=== PATIENT | male | born 1940 | race Caucasian/White ===

== ENCOUNTER → 2016-09-03 | Outpatient (CLI) | payer MEDICARE, OTHER ==
--- NOTE | 2016-09-03 18:40 | RESP ---
DATE OF SERVICE: 09/03/2016 The patient's FVC was 2.57, which is 55% predicted; FEV1 2.36, which is 70% predicted; the FEV1/FVC ratio was normal. There was no response to bronchodilators. Lung volumes were not performed. IMPRESSION: 1. No definite obstructive airway disease seen. 2. Cannot exclude restriction. Flow volume loop suggestive of mild restriction. We will need lung volumes to confirm restrictive lung disease. ERIKA CANALES MD DR: SUKHDEEP/pavithra JOB#: [id number] / [id number] Adilene Layne MD MTDD
== END | disposition home or self-care (01) ==
LOC: PF 08:47
PROVIDERS: ATTEND Family Medicine
DX: R06.09 Other forms of dyspnea (principal)
CPT/HCPCS: 94060

== ENCOUNTER → 2016-09-20 | Outpatient (CLI) | payer MEDICARE, OTHER ==
--- NOTE | 2016-09-20 10:57 | KCIC ---
ABDOMINAL ULTRASOUND, 09/20/2016: History: Elevated liver function tests The gallbladder is within normal limits in size. There is no sonographic evidence of cholelithiasis. The gallbladder collins are not thickened. No bile duct dilatation is seen. The liver is at the upper limits of normal in size measuring 18.6 centimeters in length at the level of the right lobe. No hepatic mass is seen. The pancreatic body is unremarkable. Other portions of the pancreas were obscured by overlying bowel. The spleen is of normal size. No renal abnormality is detected. The abdominal aorta is of normal caliber. The visualized portions of the inferior vena cava show no abnormality. No free fluid is evident in the abdomen. IMPRESSION: 1. Borderline hepatomegaly. 2. No acute abdominal abnormality is detected. Electronically signed by: Artem Mason MD (Sep 20, 2016 10:55:43)
== END | disposition home or self-care (01) ==
LOC: KCIC US 10:01
PROVIDERS: ATTEND Family Medicine
DX: R79.89 Other specified abnormal findings of blood chemistry (principal); R16.0 Hepatomegaly, not elsewhere classified
CPT/HCPCS: 76700

== ENCOUNTER → 2017-01-14 | Outpatient (CLI) | payer MEDICARE, OTHER ==
--- NOTE | 2017-01-14 13:53 | KCIC ---
CHEST, TWO VIEWS, 01/14/2017: History: Shortness of breath, productive cough Comparison is made to a study from 10/01/2016. The heart size and pulmonary vascularity are normal. There is mild tortuosity of the thoracic aorta. No pulmonary infiltrate is seen. There is no evidence of pleural fluid. IMPRESSION: No acute cardiopulmonary abnormality is detected with no significant change since 10/01/2016. Electronically signed by: Artem Mason MD (January 14, 2017 13:52:36)
== END | disposition home or self-care (01) ==
LOC: KCIC 13:30
PROVIDERS: ATTEND Family Medicine
DX: R06.02 Shortness of breath (principal); R05 Cough
CPT/HCPCS: 71020

== ENCOUNTER → 2017-02-20 | Outpatient (CLI) | payer OTHER, MEDICARE | END | disposition home or self-care (01) | LOC: PF 10:59 | PROVIDERS: ATTEND Internal Medicine Pulmonary Disease | DX: R06.00 Dyspnea, unspecified (principal) | CPT/HCPCS: 94060; 94620; 94729 ==

== ENCOUNTER → 2017-03-27 | Outpatient (CLI) | payer MEDICARE, OTHER ==
--- NOTE | 2017-03-31 22:07 | SLEEP ---
DATE OF STUDY: 03/27/2017 ATTENDING PHYSICIAN: Dr. Juancarlos Raymundo. REFERRING PHYSICIAN: Dr. Sherice Cruz. The patient is 76 years old who weighs 265 pounds with a BMI of 35. The patient has an [place] score of 14. A split night study was performed at [facility]. During the night study, the patient spent 425 minutes in bed and slept for 324 minutes with a sleep efficiency of 76%. Sleep latency was 14 minutes with a REM latency of 78 minutes. Overall, sleep architecture showed increased stage I sleep, normal stage II sleep, normal slow wave and normal REM sleep. During the initial diagnostic portion of the study, the patient slept for 140 minutes. During this time, there were 27 obstructive apneas, 1 mixed, and no central apneas. There were 18 hypopneas. The patient's apnea hypopnea index was 20 per hour, supine index 23 per hour and a REM index of 29 per hour. EKG monitoring revealed average heart rate of 74 beats per minute. No sustained arrhythmias were observed. Review of nocturnal oximetry study revealed a mean oxygen saturation of 93% with the lowest of 86%. 14% of time oxygen saturation remained between 80% and 89%. PLMS were seen at index of 27 per hour and none caused EEG arousals. The patient met the criteria for CPAP initiation. It was started at 5 cm water and titrated up to 14 cm of water. At the final pressure, the patient had 74 minutes of sleep. The patient had supine as well as REM sleep observed. AHI was reduced to 0 per hour and oxygen saturation remained above 91%. The patient used a medium size full face mask. IMPRESSION: 1. Moderate sleep apnea-hypopnea syndrome with an AHI of 20 per hour. 2. Nocturnal hypoxia secondary to obstructive sleep apnea, but resolved with CPAP. 3. Moderate PLMS without any significant EEG arousals. This does not need to be treated unless the patient has symptoms of restless legs during the day. RECOMMENDATIONS: 1. CPAP at 14 cm water completely eliminated patient's sleep apnea and should be used on a nightly basis. 2. Follow up in 4-6 weeks to assess compliance with CPAP and to document clinical improvement. 3. Weight loss is strongly advised. 4. Avoid [facility] [facility] depressants. 5. Caution regarding driving until symptoms of sleep apnea resolve with the use of CPAP. ERIKA CANALES MD DR: SUKHDEEP/pavithra JOB#: [id number] / [id number] SHERICE Esparza MD [facility]
== END | disposition home or self-care (01) ==
LOC: SLPLAB 18:04
PROVIDERS: ATTEND Internal Medicine Pulmonary Disease
DX: G47.33 Obstructive sleep apnea (adult) (pediatric) (principal)
CPT/HCPCS: 95810

== ENCOUNTER → 2017-07-15 | Outpatient (CLI) | payer MEDICARE, OTHER ==
--- NOTE | 2017-07-15 13:20 | RAD ---
Indication: Indication: Restrictive lung disease. Axial imaging through the chest was performed without contrast. No prior CT chest studies are available for comparison. No axillary lymphadenopathy is detected. No definite hilar or mediastinal lymphadenopathy is detected. Coronary arterial calcifications are present. No pericardial or pleural fluid is seen. Left hemidiaphragm remains chronically elevated. Parenchymal evaluation demonstrate a calcified nodule in the medial right upper lobe consistent with a granuloma. Tiny subpleural calcified nodule right lower lobe is also seen. There is linear parenchymal density in the superior segment left lower lobe consistent with scarring or subsegmental atelectasis. No interlobular septal thickening is seen. No bronchiectasis is seen. Peribronchial interstitial is unremarkable. No air cysts are seen. The upper abdomen is unremarkable. Impression: Prior granulomatous exposure and left basilar subsegmental atelectasis or scarring. The study is otherwise unremarkable. PQRS Compliance Statement: One or more of the following individualized dose reduction techniques were utilized for this examination: 1. Automated exposure control 2. Adjustment of the mA and/or kV according to patient size 3. Use of iterative reconstruction technique
== END | disposition home or self-care (01) ==
LOC: CT 15:04
PROVIDERS: ATTEND Internal Medicine Pulmonary Disease
DX: J98.4 Other disorders of lung (principal)
CPT/HCPCS: 71250

== ENCOUNTER → 2017-08-06 | Outpatient (CLI) | payer MEDICARE, OTHER ==
--- NOTE | 2017-08-06 16:32 | KCIC ---
LUMBAR SPINE MIN 4V Clinical Indication: Lumbar radiculopathy. Chronic low back pain. Comparison: None. Findings: AP, bilateral oblique, lateral, and coned lumbosacral lateral views. There is degenerative arthropathy of the right hip, incompletely imaged. Sacroiliac joints are symmetric. Atherosclerotic abdominal aorta. 5 lumbar type vertebral bodies. Mild grade 1 anterolisthesis of L4 on L5 and minimal grade 1 anterolisthesis of L3 on L4. Alignment is otherwise maintained. No pars defect is identified on the oblique views. Mild disc space narrowing of L5/S1. IMPRESSION: 1. Mild spondylolisthesis. 2. Mild disc space narrowing of L5/S1. 3. No compression fracture. Electronically signed by: Eric Singleton MD (08/06/2017 4:29 PM) [id number]
== END | disposition home or self-care (01) ==
LOC: KCIC 14:51
PROVIDERS: ATTEND Family Medicine
DX: M54.16 Radiculopathy, lumbar region (principal); M43.16 Spondylolisthesis, lumbar region; M48.07 Spinal stenosis, lumbosacral region
CPT/HCPCS: 72110

== ENCOUNTER 2017-08-08 12:14 | Emergency (ER) | payer MEDICARE, OTHER ==
[~2017-08-08] VITALS: Ht 185.4 cm; Wt 127.0 kg
[2017-08-08 12:25] VITALS: BP 147/75
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
== END 2017-08-08 13:28 | disposition home or self-care (01) ==
LOC: ER 12:14
DX: Z04.1 Encounter for examination and observation following transport accident (principal); E11.9 Type 2 diabetes mellitus without complications; K21.9 Gastro-esophageal reflux disease without esophagitis; E78.00 Pure hypercholesterolemia, unspecified; I10 Essential (primary) hypertension; M10.9 Gout, unspecified; G47.30 Sleep apnea, unspecified; V43.52XA Car driver injured in collision with other type car in traffic accident, initial encounter; Y93.I9 Activity, other involving external motion; Y92.410 Unspecified street and highway as the place of occurrence of the external cause; Y99.8 Other external cause status
CPT/HCPCS: 99281

== ENCOUNTER 2018-05-30 10:05 | Outpatient (CLI) | payer MEDICARE, OTHER ==
[2018-05-30] VITALS (14 sets, daily range): BP systolic 114–168; BP diastolic 57–100
[~2018-05-30] VITALS: Ht 185.4 cm; Wt 127.0 kg
[2018-05-30 11:05] LABS: HEMATOCRIT 35.8 % (39.0-53.0); RED BLOOD COUNT 4.64 x10^6/uL (4.30-5.70); RED CELL DISTRIBUTION WIDTH 17.1 % (11.5-14.5)
--- NOTE | 2018-05-30 11:05 | CARD ---
MR#: [id number] Date of Study: 05/30/2018 Ordering Physician: DELL WEST, Referring Physician: DELL WEST Tech: Yoanna Jeff MACI APPROVED REPORT EXAM: Two-dimensional and M-mode echocardiogram with Doppler and color Doppler. Other Information Quality : AverageHR: 80bpm Rhythm : NSR INDICATION Shortness of breath 2D DIMENSIONS RVDd3.2 (2.9-3.5cm)Left Atrium(2D)3.7 (1.6-4.0cm) IVSd1.1 (0.7-1.1cm)Aortic Root(2D)4.2 (2.0-3.7cm) LVDd5.2 (3.9-5.9cm)LVOT Diameter2.2 (1.8-2.4cm) PWd1.0 (0.7-1.1cm)LVDs3.7 (2.5-4.0cm) FS (%) 28.0 %SV69.2 ml LVEF(%)53.9 (>50%) M-Mode DIMENSIONS Left Atrium(MM)4.06 (2.5-4.0cm)Aortic Root4.41 (2.2-3.7cm) Aortic Valve AoV Peak Alonso.171.8cm/sAoV VTI34.4cm AO Peak GR.11.8mmHgLVOT Peak Alonso.81.4cm/s AO Mean GR.6mmHgAVA (VMAX)1.73cm2 MAURICIO (VTI)1.80cm2 Mitral Valve MV E Sbiohzkg89.0cm/sMV E Peak Gr.4mmHg MV DECEL [id number] A Lxjjntya293.7cm/s MV E Mean Gr.2mmHgE/A Ratio0.6 MV A [id number] Pulmonary Valve PV Peak Paxndrdk08.3cm/s LEFT VENTRICLE The left ventricle is normal size. There is normal left ventricular wall thickness. The left ventricu lar systolic function is normal. The Ejection Fraction is 55-60%. There is normal LV segmental wall m otion. Transmitral Doppler flow pattern is Grade I-abnormal relaxation pattern. RIGHT VENTRICLE The right ventricle is normal size. There is normal right ventricular wall thickness. The right ventr icular systolic function is normal. ATRIA The left atrium size is normal. The right atrium size is normal. The interatrial septum is intact wit h no evidence for an atrial septal defect or patent foramen ovale as noted on 2-D or Doppler imaging. AORTIC VALVE The aortic valve is calcified but opens well. The aortic valve is trileaflet. Doppler and Color Flow revealed no significant aortic regurgitation. There is no significant aortic valvular stenosis. MITRAL VALVE The mitral valve is normal in structure and function. There is no evidence of mitral valve prolapse. There is no mitral valve stenosis. Doppler and Color Flow revealed no mitral valve regurgitation note d. TRICUSPID VALVE The tricuspid valve is normal in structure and function. Doppler and Color Flow revealed no tricuspid valve regurgitation noted. There is no tricuspid valve prolapse or vegetation. There is no tricuspid valve stenosis. PULMONIC VALVE The pulmonary valve is normal in structure and function. Doppler and Color Flow revealed trace pulmon ic valvular regurgitation. There is no pulmonic valvular stenosis. GREAT VESSELS The aortic root is mildly enlarged. PERICARDIAL EFFUSION There is no evidence of significant pericardial effusion. Critical Notification Critical Value: No <Conclusion> The left ventricular systolic function is normal. The Ejection Fraction is 55-60%. There is normal LV segmental wall motion. Transmitral Doppler flow pattern is Grade I-abnormal relaxation pattern. No significant valvular stenosis or abnormalities. There is no evidence of significant pericardial effusion. Signed by : Dell West, Electronically Approved : 05/30/2018 11:04:02
[2018-05-30 11:13] LABS: PROTHROMBIN TIME PATIENT 13.7 SEC (11.7-14.0)
[2018-05-30] MEDS ORDERED: IODIXANOL 320 MG/ML 100 ML VIAL. ONE (11:14)
[2018-05-30] MEDS ORDERED: LIDOCAINE 1% PF 2 ML VIAL. ONE (11:14)
[2018-05-30 11:26] LABS: CREATININE 1.1 mg/dL (0.7-1.3); GFR 64.6; POTASSIUM 3.7 mmol/L (3.5-5.1)
[2018-05-30] MEDS ORDERED: NITROGLYCERIN 200 MCG/2 ML SYRINGE FOR CATH/VASC LAB. ONE (11:29)
[2018-05-30] MEDS ORDERED: fentaNYL PF VIAL 100 MCG/2 ML VIAL ONE (11:29)
[2018-05-30] MEDS ORDERED: MIDAZOLAM HCL/PF 5 MG/5 ML VIAL. ONE (11:29)
[2018-05-30] MEDS ORDERED: VERAPAMIL 5 MG/2 ML VIAL. ONE (11:29)
[2018-05-30] MEDS ORDERED: HEPARIN for IV BOLUS 10,000 UNIT/10 ML VIAL. ONE (11:29)
[2018-05-30] MEDS ORDERED: GLUC100018 PO (11:58)
[2018-05-30] MEDS ORDERED: GABA-585 PO (11:58)
[2018-05-30] MEDS ORDERED: TIOT18CA IH (11:58)
[2018-05-30] MEDS ORDERED: FERR325T14 PO (11:58)
[2018-05-30] MEDS ORDERED: CALC-77 PO (11:58)
[2018-05-30] MEDS ORDERED: IPRA0.2S5 NEB (11:58)
[2018-05-30] MEDS ORDERED: ALLO100T PO (11:58)
[2018-05-30] MEDS ORDERED: VITA150T PO (11:58)
[2018-05-30] MEDS ORDERED: AMLO5TAB7 PO (11:58)
[2018-05-30] MEDS ORDERED: FLUT12AE IH (11:58)
[2018-05-30] MEDS ORDERED: HYDR12.58 PO (11:58)
[2018-05-30] MEDS ORDERED: ATOR10TA60 PO (11:58)
[2018-05-30] MEDS ORDERED: UBID100C26 PO (11:58)
[2018-05-30] MEDS ORDERED: LOSA100T7 PO (11:58)
[2018-05-30] MEDS ORDERED: TAMS0.4C2 PO (11:58)
[2018-05-30] MEDS ORDERED: OMEP20CA9 PO (11:58)
[2018-05-30] MEDS ORDERED: MULT-690 PO (11:58)
[2018-05-30] MEDS ORDERED: ASCO10002 PO (11:58)
[2018-05-30] MEDS ORDERED: METF500T16 PO (11:58)
[2018-05-30] MEDS ORDERED: MIDAZOLAM HCL/PF 5 MG/5 ML VIAL. IV ONE (12:00)
[2018-05-30] MEDS ORDERED: NITROGLYCERIN 200 MCG/2 ML SYRINGE FOR CATH/VASC LAB. IART ONE (12:00)
[2018-05-30] MEDS ORDERED: LIDOCAINE 1% PF 2 ML VIAL. INJ ONE (12:00)
[2018-05-30] MEDS ORDERED: IODIXANOL 320 MG/ML 100 ML VIAL. IART ONE (12:00)
[2018-05-30] MEDS ORDERED: VERAPAMIL 5 MG/2 ML VIAL. IART ONE (12:00)
[2018-05-30] MEDS ORDERED: HEPARIN for IV BOLUS 10,000 UNIT/10 ML VIAL. IART ONE (12:00)
[2018-05-30] MEDS ORDERED: fentaNYL PF VIAL 100 MCG/2 ML VIAL IV ONE (12:00)
[2018-05-30] MEDS ORDERED: CONTRAST GIVEN. MC PRN (12:15)
--- NOTE | 2018-05-30 12:44 | PDOC ---
MODERATE SEDATION ASSESSMENT RISKS/ALTERNATIVES Risks/Alternatives Risks and alternatives of this type of sedation and procedure discussed with: RISK/ALTERNATIVES: Patient H & P ON CHART H & P H & P on chart and reviewed for co-morbid conditions and appropriate labs. H&P ON CHART: Yes STATUS PREG STATUS ASSESSED: N/A MEDS/ALLERGIES REVIEWED Meds/Allergies Reviewed Medications and Allergies including time and route of recently administered narcotics and sedatives. MEDS/ALLERGIES REVIEWED: Yes ASA RATING ASA RATING: II AIRWAY ASSESSMENT Airway Assessment Airway patency, oral function limitations, presence of caps, crowns, dentures, partials, and ability to extend neck assessed. AIRWAY ASSESSMENT: Yes MALLAMPATI SCORE MALLAMPATI SCORE: II PRE-SEDATION ASSESSMENT PRE-SEDATION ASSESSMENT: Yes DELL MURILLO MD May 30, 2018 12:44
[2018-05-30] MEDS ORDERED: IV 1/2 NORMAL SALINE 1,000 ML IV SCH (12:45)
[2018-05-30] MEDS ORDERED: NITROGLYCERIN SUBLINGUAL 0.4 MG BOTTLE OF 25. SL PRN (12:45)
--- NOTE | 2018-05-30 13:04 | CARD ---
MR#: [id number] Date of Study: 05/30/2018 Ordering Physician: DELL WEST Referring Physician: DELL WEST Tech: RT Irene (R) APPROVED REPORT Technologist: RT Irene (R) Nurse: Maggie Jones R.N. Procedure(s) performed: Left heart catheterization, selective coronary angiography and left ventricul ography via right transradial approach Moderate sedation: 37 Mins INDICATION The indication(s) include : Unstable angina. PROCEDURE NARRATIVE After explaining the risks, benefits and alternative options, informed consent was obtained from giuliana ent. Patient was brought to the cardiac [employer] and right wrist was prepped and draped in the usual fashion after confirming a positive modified Gordy's test. Arterial access was obtained in the righ t radial artery and a 6 Nauruan sheath was inserted. 6 Nauruan Andre catheter was used to perform ileana ective angiography of the left and right coronary arteries. 6 Nauruan pigtail catheter was used to pe rform left ventriculography. Patient tolerated the procedure well. Hemostasis was achieved using TR band. There were no immediate complications. The following findings were noted. FINDINGS 1. Hemodynamics: Left ventricular end-diastolic pressure of 19 mmHg. No pullback gradient across th e aortic valve. 2. Left ventriculography: Normal left ventricle systolic function with ejection fraction estimated at 60%. No significant mitral regurgitation seen. 3. Coronary angiography: a. The left main coronary artery arose from the left sinus of Valsalva, gave rise to the left anteri or descending and left circumflex arteries and did not show any significant stenosis. b. The left anterior descending artery did not show any significant stenosis. c. The left circumflex artery did not show any significant stenosis. d. The right coronary artery was a large and dominant vessel arising from the right sinus of Valsalv a that did not show any significant stenosis. Conclusion 1. No significant coronary artery disease 2. Normal left ventricle systolic function with ejection fraction estimated at 60%. Recommendations Cardiac Risk Reduction Program Signed by : Dell West, Electronically Approved : 05/30/2018 13:03:28
== END 2018-05-30 15:15 | disposition home or self-care (01) ==
LOC: ECHO 10:05
PROVIDERS: ATTEND Internal Medicine Cardiovascular Disease
DX: I20.0 Unstable angina (principal); Z79.899 Other long term (current) drug therapy; I10 Essential (primary) hypertension; E78.5 Hyperlipidemia, unspecified; E11.9 Type 2 diabetes mellitus without complications; J44.9 Chronic obstructive pulmonary disease, unspecified; M19.90 Unspecified osteoarthritis, unspecified site; G47.33 Obstructive sleep apnea (adult) (pediatric); Z98.890 Other specified postprocedural states; Z82.49 Family history of ischemic heart disease and other diseases of the circulatory system; Z79.84 Long term (current) use of oral hypoglycemic drugs
CPT/HCPCS: 36415; 80048; 85027; 85610; 93306; 93458; 99152; 99153; C1769; C1892; J1644; J2250; J3010; J3490; Q9967

== ENCOUNTER → 2018-12-04 | Outpatient (CLI) | payer MEDICARE, OTHER ==
[2018-05-30 15:00] VITALS: BP 142/67
[~2018-12-04] MED LIST: ALLO100T PO; AMLO5TAB10 PO; ASCO10002 PO; ATOR10TA60 PO; CALC-77 PO; FERR325T14 PO; FLUT12AE IH; GABA-585 PO; GLUC100018 PO; HYDR12.58 PO; IPRA0.2S5 NEB; LOSA100T14 PO; METF500T16 PO; MULT-690 PO; OMEP20CA10 PO; TAMS0.4C2 PO; TIOT18CA IH; UBID100C26 PO; VITA150T PO
--- NOTE | 2018-12-04 17:50 | RAD ---
MR#: [id number] Date of Study: 12/04/2018 Ordering Physician: DELL MURILLO, Referring Physician: DELL MURILLO Tech: Lesly Murguia RDMS, RVT, RTR APPROVED REPORT Patient Location: OUT-PATIENT Indications Bilateral Leg Pain VELOCITY AND DOPPLER WAVEFORM ANALYSIS RIGHT cm/secWaveformSeverity LEFT cm/secWaveform Severity pCFA 101.6pCFA 122.2 Prof Fem Art. 85.9Prof Fem Art. 81.0 Fem Art Prox. 109.1Fem Art Prox. 104.6 Fem Art Mid. 96.7Fem Art Mid. 108.3 Fem Art Dist. 81.0Fem Art Dist. 100.9 Pop Art(AK) 99.1Pop Art(AK) 79.1 HOME HEALTH PROVIDER Prox. 79.5PTA Prox. 42.1 HOME HEALTH PROVIDER Dist. 72.2PTA Dist. 86.8 Per Art Prox. 55.5Per Art Prox. 80.3 TALAT Prox. 81.4ATA Prox. 68.0 DPA 77.4DPA 97.6 Findings Grayscale images of the bilateral lower extremity arterial vessels reveal mild intimal hyperplasia an d mild diffuse atherosclerotic plaque without any focal obstruction. Spectral waveforms and color Doppler in the bilateral common femoral, superficial femoral, popliteal vessels and below-knee vessels demonstrate mostly biphasic and triphasic waveforms. Velocities are gr ossly within normal limits. There is bilateral three-vessel runoff without any significant obstruction noted. Incidental note is made of bilateral De La O cysts on the right measuring approximately 10.3 x 3.6 x 1. 5 cm and on the left measuring 10.4 x 4.7 x 2.2 cm. Critical Notification Critical Value: No <Conclusion> 1. No significant lower extremity arterial disease. 2. Large bilateral De La O cysts. Signed by : Lon Neely, Electronically Approved : 12/04/2018 17:50:33
== END | disposition home or self-care (01) ==
LOC: US 15:04
PROVIDERS: ATTEND Internal Medicine Cardiovascular Disease
DX: M71.21 Synovial cyst of popliteal space [Baker], right knee (principal); M71.22 Synovial cyst of popliteal space [Baker], left knee; M79.661 Pain in right lower leg; M79.662 Pain in left lower leg
CPT/HCPCS: 93925

== ENCOUNTER → 2019-02-17 | Outpatient (CLI) | payer MEDICARE, OTHER ==
[2018-05-30 15:00] VITALS: BP 142/67
--- NOTE | 2019-02-17 17:16 | KCIC ---
Examination: 3 views of the lumbar spine HISTORY: History of chronic back pain COMPARISON: 08/06/2017 FINDINGS: The lumbar vertebral body heights are maintained. Mild intervertebral disc height loss identified throughout the lumbar spine likely degeneration. Moderate facet degenerative changes identified. No significant listhesis identified. IMPRESSION: 1. Moderate degenerative changes lumbar spine. No significant listhesis. Electronically signed by: Dwaine Fortune MD (02/17/2019 5:14 PM) [id number]
== END | disposition home or self-care (01) ==
LOC: KCIC 15:39
PROVIDERS: ATTEND Neurological Surgery
DX: M47.816 Spondylosis without myelopathy or radiculopathy, lumbar region (principal)
CPT/HCPCS: 72100

== ENCOUNTER → 2019-02-19 | Outpatient (CLI) | payer MEDICARE, OTHER ==
[2018-05-30 15:00] VITALS: BP 142/67
[~2019-02-19] MED LIST changes: +IOHEXOL 180 MG/ML 10 ML VIAL. ONE; +methylPREDNISolone ACETATE 40 MG/ML VIAL. ONE; +methylPREDNISolone ACETATE 80 MG/ML VIAL. ONE
--- NOTE | 2019-02-19 12:56 | PAIN ---
DATE OF SERVICE: 02/19/2019 DIAGNOSES: Lumbar radiculopathy with lumbar spinal stenosis, lumbar degenerative disk. The patient is an 78-year-old male who returns for followup status post lumbar epidural steroid injection x 1. The patient reports he got 60% improvement for the first week or so with the pain returning now in the low back and bilateral lower extremities, posterior gluteus, posterior thighs, lateral thighs, anterior thighs, which gets worse with walking, standing, changing positions. It is a shooting pain that is tingling and burning, described it as stabbing, on and off in intensity, worse with walking and standing, better with sitting or lying down, does not awaken him from sleep at night. The patient has obtained a lumbar support brace, which he has been wearing when he is up and around, has it with him today. He reports it has been helpful. The patient reports his pain is an 8 on a scale of 10 at its worst in the past week, 8 on average, 2 at its least and it is an 8 today. The patient reports no new changes. No new bowel or bladder incontinence or other complaints. PHYSICAL EXAMINATION: VITAL SIGNS: The patient's blood pressure 140/78, pulse 109, respirations 18, temperature 98.1 degrees Fahrenheit. Height is 6 feet 1 inch. GENERAL: The patient is awake, alert, oriented, appropriate, very pleasant demeanor. The patient is accompanied by his spouse. HEENT: Shows normocephalic, atraumatic. Extraocular movements are intact and symmetrical. Oral cavity, mucous membranes are moist and pink. Dentition is intact. NECK: Shows anterior throat supple without palpable lymphadenopathy noted. Swallow reflex symmetrical. CHEST: Shows normal with inspection. Breath sounds are clear to auscultation bilaterally. HEART: Shows S1, S2. No murmurs auscultated. ABDOMEN: Obese, soft, nontender, nondistended. BACK: Shows spine grossly in the midline. Lumbar paraspinous muscle shows symmetrical on inspection, on palpation has some moderate tenderness diffusely bilaterally, but only diffusely without significant radiation. The patient has good rotational motion of the lumbar spine laterally as well as extension and flexion without difficulty. EXTREMITIES: Lower extremities show deep tendon reflexes 1+ in the patellar and tendo-calcaneus tendons are equal. Motor exam is 4 on a scale of 5, but symmetrical with dorsiflexion, extension, quadriceps and hamstring flexion. Peripheral pulses are 1+ posterior tibial. No peripheral edema is noted. Options were discussed with the patient. The patient's old chart was reviewed as his current medication regimen updated. Current review of systems updated today as well. We will proceed with a second in the series of lumbar epidural steroid injections today with fluoroscopic guidance. Risks were again discussed including, but not limited to bleeding, infection, possibility of epidural hematoma, subsequent neurological compromise, dural puncture headache, spinal cord and/or nerve damage, side effects of steroid medication and poor results regarding pain control. The patient understands and wished to proceed. The patient will return to the clinic in approximately 2 weeks for followup, was counseled on return appointment, activity level and side effects to be aware of. DIAGNOSES: Lumbar radiculopathy with lumbar spinal stenosis, lumbar degenerative disk disease. PROCEDURE: Lumbar epidural steroid injection, translaminar approach at L4-L5 level using C-arm fluoroscopic guidance under sterile prep and drape using local anesthetic. MEDICATION INJECTED: A total of 120 mg Depo-Medrol plus 10 mL of preservative-free normal saline and 2 mL of Isovue for contrast. CONDITION AT DISCHARGE: Stable. The patient tolerated the procedure well, had no complications. EAN JEWELL MD DR: VASYL/pavithra JOB#: [id number] / [id number]
== END ==
LOC: PNCL 09:35
PROVIDERS: ATTEND Anesthesiology
DX: M51.16 Intervertebral disc disorders with radiculopathy, lumbar region (principal); M48.061 Spinal stenosis, lumbar region without neurogenic claudication
CPT/HCPCS: 62323; J1030; J1040; Q9965

== ENCOUNTER → 2019-03-18 | Outpatient (CLI) | payer MEDICARE, OTHER ==
[2018-05-30 15:00] VITALS: BP 142/67
--- NOTE | 2019-03-18 22:50 | PAIN ---
DATE OF SERVICE: 03/18/2019 PROGRESS NOTE FOR PAIN CLINIC DIAGNOSES: Lumbar radiculopathy with lumbar spinal stenosis and lumbar degenerative disk disease. HISTORY OF PRESENT ILLNESS: The patient is an 78-year-old male who returns for followup status post lumbar epidural steroid injection x 2. The patient reports about 70% improvement after the last injection. The pain is returning now over the past few days, only in the low back and the bilateral lower extremities, mostly in the anterolateral thighs and medial thighs, worse with walking, standing or change in vision. The patient has been going to the gym to workout, although this is becoming more difficult with the pain in his back and feels that he is not strong enough to work out completely and is talking about wishing for some physical therapy. We discussed that with he and his spouse, we will make those arrangements. The patient reports he is doing better at night. He is sleeping through the night, does not bother him when he is lying down. Sitting is better than standing, but again, he has been increasing his distance walking and doing activities at home as well as recreational activities and traveling with better ease and comfort. The patient reports pain is essentially a 9 on a scale of 10 at all times, reports it is tingling, burning, stabbing and tight in the low back and leg itself. No new motor or sensory deficits reported. No new bowel or bladder incontinence. PHYSICAL EXAMINATION: VITAL SIGNS: The patient's blood pressure 152/86, pulse 93, respirations 18, temperature is 97.8 degrees Fahrenheit, 6 feet 1 inch and weight is 299 pounds. GENERAL: The patient is awake, alert, oriented, appropriate, very pleasant demeanor. HEENT: Head shows normocephalic, atraumatic. Extraocular movements are intact and symmetrical. Oral cavity: Mucous membranes moist and pink. Dentition is intact. NECK: Shows anterior throat supple without palpable lymphadenopathy noted. Swallow reflex symmetrical. CHEST: Shows normal on inspection. Breath sounds clear to auscultation bilaterally. HEART: Shows S1, S2 clear. No murmurs are auscultated. ABDOMEN: Soft, obese, nontender and nondistended. BACK: Shows spine grossly in the midline, slightly exaggerated thoracic kyphosis, mild flattening of lumbar lordotic curvature. Lumbar paraspinous muscle shows symmetrical on inspection. On palpation, he has some moderate tenderness diffusely bilaterally, but only diffusely without radiation. The patient has good rotational motion of the lumbar spine, both laterally as well as extension and flexion. EXTREMITIES: Lower extremities show deep tendon reflexes 1+ in the patellar and tendo-calcaneus tendons. Motor exam is a 4 on a scale of 5, but equal and symmetrical dorsiflexion, extension, quadriceps and hamstring flexion. Peripheral pulses are 1+ posterior tibial. No peripheral edema is noted bilaterally. Options were discussed with the patient. The patient's old chart was reviewed as his current medication regimen updated. Current review of systems updated today as well. We will proceed with a lumbar epidural steroid injection today, is the third in this series, with fluoroscopic guidance. Risks were discussed again including, but not limited to bleeding, infection, possibility of epidural hematoma, subsequent neurological compromise, dural puncture, headaches, spinal cord and/or nerve damage, side effects of steroid medication and poor results regarding pain control. The patient understands and wished to proceed. The patient will return to clinic in approximately 2 weeks for followup. He was counseled as to return appointment, activity level and side effects to be aware of. DIAGNOSES: Lumbar radiculopathy with lumbar degenerative disk disease and lumbar spinal stenosis. PROCEDURE: Lumbar epidural steroid injection, translaminar approach at L4-5 level using the C-arm fluoroscopic guidance under sterile prep and drape using local anesthetic. MEDICATION INJECTED: A total of 120 mg Depo-Medrol plus 10 mL of preservative-free normal saline and 2 mL of contrast. CONDITION AT DISCHARGE: Stable. The patient tolerated the procedure well, had no complications. EAN JEWELL MD DR: VASYL/pavithra JOB#: [id number] / [id number]
== END ==
LOC: PNCL 10:37
PROVIDERS: ATTEND Anesthesiology
DX: M51.16 Intervertebral disc disorders with radiculopathy, lumbar region (principal); M48.061 Spinal stenosis, lumbar region without neurogenic claudication
CPT/HCPCS: 62323; J1030; J1040; Q9965

== ENCOUNTER → 2019-04-22 | Outpatient (CLI) | payer MEDICARE, OTHER ==
[2018-05-30 15:00] VITALS: BP 142/67
[~2019-04-22] MED LIST changes: -IOHEXOL 180 MG/ML 10 ML VIAL. ONE; -methylPREDNISolone ACETATE 40 MG/ML VIAL. ONE; -methylPREDNISolone ACETATE 80 MG/ML VIAL. ONE
--- NOTE | 2019-04-22 13:20 | KCIC ---
EXAM: Abdomen sonogram. HISTORY: Abnormal liver function laboratory values. TECHNIQUE: Sonographic imaging of the abdomen was performed. COMPARISON: None. FINDINGS: The liver is enlarged. There is hepatic steatosis. No focal hepatic lesion is seen. The common bile duct is normal in caliber. The gallbladder is unremarkable. The right kidney, pancreas and inferior vena cava are not well seen body habitus. IMPRESSION: 1. Hepatomegaly and hepatic steatosis. 2. Limited evaluation due to body habitus. Electronically signed by: Romelia Mckee MD (04/22/2019 1:17 PM) [id number]
== END | disposition home or self-care (01) ==
LOC: EDSEX → KCIC US 09:44
PROVIDERS: ATTEND Family Medicine
DX: K76.0 Fatty (change of) liver, not elsewhere classified (principal)
CPT/HCPCS: 76705

== ENCOUNTER → 2019-05-19 | Outpatient (CLI) | payer MEDICARE, OTHER ==
[2018-05-30 15:00] VITALS: BP 142/67
--- NOTE | 2019-05-19 10:13 | CARD ---
MR#: [id number] Date of Study: 05/19/2019 Ordering Physician: DELL MURILLO, Referring Physician: DELL MURILLO Tech: Yuki Nichole RDCS APPROVED REPORT EXAM: Two-dimensional and M-mode echocardiogram with Doppler and color Doppler. Other Information Quality : Fair INDICATION Hypertension/HCVD 2D DIMENSIONS RVDd2.2 (2.9-3.5cm)Left Atrium(2D)4.8 (1.6-4.0cm) IVSd1.0 (0.7-1.1cm)Aortic Root(2D)2.8 (2.0-3.7cm) LVDd4.4 (3.9-5.9cm)LVOT Diameter2.2 (1.8-2.4cm) PWd0.9 (0.7-1.1cm)LVDs3.3 (2.5-4.0cm) FS (%) 26.0 %SV45.4 ml LVEF(%)51.3 (>50%) Aortic Valve AoV Peak Alonso.168.1cm/sAoV VTI37.4cm AO Peak GR.11.3mmHgLVOT Peak Alonso.111.0cm/s LVOT VTI 29.01cmAO Mean GR.6mmHg MAURICIO (VMAX)2.88bz8DYS (VTI)3.03cm2 AI P 1/2 Lwhh158uq Mitral Valve MV E Sekmbydx37.3cm/sMV DECEL UFDS195ke MV A Qccmbmru737.6cm/sMV YRL91wu E/A Ratio0.7MVA (PHT)3.50cm2 TDI E/Lateral E'11.5E/Medial E'12.3 Pulmonary Vein S1 Yinifsnf04.3cm/sD2 Emqulayq35.4cm/s LEFT VENTRICLE The left ventricle is normal size. There is normal left ventricular wall thickness. Left ventricle sy stolic function is low normal. The Ejection Fraction is 50-55%. There is normal LV segmental wall mot ion. Septal motion suggestive of conduction defect. Transmitral Doppler flow pattern is Grade I-abnor mal relaxation pattern. RIGHT VENTRICLE The right ventricle is normal size. The right ventricular systolic function is normal. ATRIA The left atrium is mildly dilated. The right atrium size is normal. The interatrial septum is intact with no evidence for an atrial septal defect or patent foramen ovale as noted on 2-D or Doppler imagi ng. AORTIC VALVE The aortic valve is not well visualized but appears calcified. Doppler and Color Flow revealed trace aortic regurgitation. There is no significant aortic valvular stenosis. MITRAL VALVE The mitral valve is calcified but opens well. There is no evidence of mitral valve prolapse. There is no mitral valve stenosis. Doppler and Color Flow revealed no mitral valve regurgitation noted. TRICUSPID VALVE The tricuspid valve is normal in structure and function. Doppler and Color Flow revealed no tricuspid valve regurgitation noted. There is no tricuspid valve stenosis. PULMONIC VALVE The pulmonic valve is not well visualized. Doppler and Color Flow revealed no pulmonic valvular regur gitation. There is no pulmonic valvular stenosis. GREAT VESSELS The aortic root is normal in size. The ascending aorta is moderately dilated at 3.9 cm. The IVC is no rmal in size and collapses >50% with inspiration. PERICARDIAL EFFUSION There is no evidence of significant pericardial effusion. Critical Notification Critical Value: No <Conclusion> Left ventricle systolic function is low normal. The Ejection Fraction is 50-55%. There is normal LV segmental wall motion. Septal motion suggestive of conduction defect. The ascending aorta is moderately dilated at 3.9 cm. Signed by : Lon Neely, Electronically Approved : 05/19/2019 10:13:00
== END | disposition home or self-care (01) ==
LOC: EDSEX → ECHO 08:28 → EDSEX 09:00
PROVIDERS: ATTEND Internal Medicine Cardiovascular Disease
DX: I34.8 Other nonrheumatic mitral valve disorders (principal); I11.9 Hypertensive heart disease without heart failure
CPT/HCPCS: 93306

== ENCOUNTER → 2019-06-30 | Outpatient (CLI) | payer MEDICARE, OTHER ==
--- NOTE | 2019-06-30 13:21 | KCIC ---
EXAM: Chest, 2 views HISTORY: Chronic shortness of breath. COMPARISON: None. FINDINGS: 2 views of the chest are obtained. There is no infiltrate, pleural effusion or pneumothorax. There are slight decreased lung volumes and there is slight elevation of the left hemidiaphragm with left basilar compressive atelectasis. The heart is normal in size. There is a suspected small benign sclerotic lesion within the right humeral head. IMPRESSION: Slight decreased lung volumes and mild elevation of the left hemidiaphragm. No acute pulmonary finding. Electronically signed by: Romelia Mckee MD (06/30/2019 1:18 PM) [place] [id number]
== END | disposition home or self-care (01) ==
LOC: MERGE 11:30 → KCIC 11:30
PROVIDERS: ATTEND Internal Medicine Pulmonary Disease
DX: J98.11 Atelectasis (principal)
CPT/HCPCS: 71046

== ENCOUNTER 2020-02-15 09:34 | Inpatient (IN) | payer MEDICARE, OTHER ==
[~2020-02-15] VITALS: Ht 185.4 cm; Wt 121.1 kg
[~2020-02-15 09:34] MED LIST changes: +BUME1TAB3 PO; +BUME2TAB3 PO; +DOXY100C2 PO; +DULO30CA2 PO; +LOSA-73 PO; -OMEP20CA10 PO; +OMEP20CA16 PO; +POTA10TA6 PO
--- NOTE | 2020-02-15 10:10 | PHYS DOC ---
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 He usually walks with a walker and he is unable to bear a lot of weight on that knee. He states he can bear a small amount but it is very painful. The states that she has been having to get him up and around. Patient is unable to stand up or get up out of the wheelchair on his own even with help from nursing staff. He states is too painful. Patient states he has a sharp pain in the anterior knee only. Rates his pain at 9 out of 10. He has not had any pain medication. Review of Systems: Review of Systems: Musculoskeletal: Denies back pain. Right knee joint pain. [] Heart Score: Risk Factors: Risk Factors: DM, Current or recent (<one month) smoker, HTN, HLP, family history of CAD, obesity. Risk Scores: Score 0 - 3: 2.5% MACE over next 6 weeks - Discharge Home Score 4 - 6: 20.3% MACE over next 6 weeks - Admit for Clinical Observation Score 7 - 10: 72.7% MACE over next 6 weeks - Early Invasive Strategies Allergies: Allergies: Allergies Coded Allergies Type Severity Reaction Last Updated Verified No Known Drug Allergies 08/08/17 No Physical Exam: PE: Constitutional: Well developed, well nourished, no acute distress, non-toxic appearance. [] HENT: Normocephalic, atraumatic, bilateral external ears normal, oropharynx moist, no oral exudates, nose normal. [] Eyes: PERRLA, EOMI, conjunctiva normal, no discharge. [] Neck: Normal range of motion, no tenderness, supple, no stridor. [] Cardiovascular:Heart rate regular rhythm, no murmur [] Lungs & Thorax: Bilateral breath sounds clear to auscultation [] Abdomen: Bowel sounds normal, soft, no tenderness, no masses, no pulsatile masses. [] Skin: Warm, dry, no erythema, no rash. [] Back: No tenderness, no CVA tenderness. [] Extremities: Right anterior knee tenderness, no cyanosis, no clubbing, ROM intact, 3+ edema. [] Neurologic: Alert and oriented X 3, normal motor function, normal sensory function, no focal deficits noted. [] Psychologic: Affect normal, judgement normal, mood normal. [] EKG: EKG: [] Radiology/Procedures: Radiology/Procedures: [] Impression: [facility] [address] [place] [address] IMAGING REPORT Signed PATIENT: BRIAN BRO JACCOUNT: [id number] : 1940 LOCATION: ER AGE: 79 SEX: M EXAM STATUS: REG ER ORD. PHYSICIAN: ESME WESLEY APRN REASON: fall, RT KNEE PAIN PROCEDURE: KNEE RIGHT 3V EXAM: Right knee, 3 views. HISTORY: Pain. Fall. COMPARISON: None. FINDINGS: 3 views the right knee are obtained. There is medial compartment joint space narrowing with subchondral sclerosis and spurring. There is also mild lateral and patellofemoral compartment spurring. There is chondrocalcinosis. There is a small joint effusion. There are small joint loose bodies. IMPRESSION: 1. 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 2. Small joint effusion. Electronically signed by: Romelia Gruber MD (02/15/2020 10:35 AM) [id number] DICTATED and SIGNED BY: ROMELIA GRUBER MD DATE: 02/15/20 1035 Course & Med Decision Making: Course & Med Decision Making Pertinent Labs and Imaging studies reviewed. (See chart for details) Alert and oriented. Skin pink warm and dry. Patient has 3+ edema to the lower extremities bilaterally but looks to be more so due to injury on the right knee and right lower leg. Tenderness to the right anterior knee only. No laxity in the joint. Patient can bend the knee but is very painful and he can straighten the knee of which she states is painful but not as painful as bending it. Popliteal pulse is present. No deformity is seen or felt. Denies numbness or tingling. Denies hitting his head, LOC, chest pain, shortness of air, dizziness, numbness or tingling. Patient is unable to ambulate. Patient is admitted to Dr Phipps. [] Adrian Disclaimer: Adrian Disclaimer: This electronic medical record was generated, in whole or in part, using a voice recognition dictation system. Departure Departure Impression: Primary Impression: Knee pain, right Qualified Codes: M25.561 - Pain in right knee Additional Impression: Unable to ambulate Disposition: ADMITTED INPATIENT Admitting Physician: OMARI Condition: STABLE Referrals: Adilene GANDARA MD (PCP) Justicifation of Admission Dx: Justifications for Admission: Justification of Admission Dx: Yes Comments: unable to ambulate, knee pain ESME WESLEY APPELLATE COURT CLERK Feb 15, 2020 10:10
[2020-02-15] MEDS ORDERED: HYDROcodone/APAP 5/325MG 1 TAB TABLET PO ONE (10:15)
--- NOTE | 2020-02-15 10:38 | RAD ---
EXAM: Right knee, 3 views. HISTORY: Pain. Fall. COMPARISON: None. FINDINGS: 3 views the right knee are obtained. There is medial compartment joint space narrowing with subchondral sclerosis and spurring. There is also mild lateral and patellofemoral compartment spurring. There is chondrocalcinosis. There is a small joint effusion. There are small joint loose bodies. IMPRESSION: 1. 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 2. Small joint effusion. Electronically signed by: Romelia Mckee MD (02/15/2020 10:35 AM) [id number]
--- NOTE | 2020-02-15 11:36 | PDOC1 ---
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 He usually walks with a walker and he is unable to bear a lot of weight on that knee. He states KNEE IS very painful. states that she has been having to get him up and around. unable to stand up or get up out of the wheelchair on his own even with help NOT ABLE TO SAFELY D/C FROM ER TODAY DUE TO FALL RISK Past Medical History Past Medical History Past Medical History Past Medical History: Diabetes-Type II, GERD, High Cholesterol, Hypertension, Other Additional Past Medical Histor: gout; prostate; sleep apnea Past Surgical History: Other Additional Past Surgical Histo: right ankle Smoking Status: Never Smoker Alcohol Use: None Drug Use: None FHX OBESITY Cardiovascular: CHF, HTN, Hyperlipidemia Pulmonary: Other CENTRAL NERVOUS SYSTEM: Periperal neuropathy GI: GERD, Other Heme/Onc: No pertinent hx Hepatobiliary: Other Psych: Depression Musculoskeletal: Osteoarthritis, Weakness, Swelling, Other (RIGHT KNEE PAIN) Rheumatologic: Gout Infectious disease: No pertinent hx ENT: No pertinent hx Renal/: Benign prostatic enlarg. Endocrine: Diabetes Past Surgical History Past Surgical History: Other Family History Family History: Heart Disease Social History Smoke: No ALCOHOL: none Drugs: None Current Medications Current Medications Current Medications Acetaminophen/ Hydrocodone Bitart (Lortab 5/325) 1 tab 1X ONCE PO Last administered on 02/15/20at 10:29; Start 02/15/20 at 10:15; Stop 02/15/20 at 10:25; Status DC Active Scripts Active Cymbalta (Duloxetine Hcl) 30 Mg Capsule.dr 30 Mg PO DAILY 30 Days Bumetanide 1 Mg Tablet 1 Tab PO DAILY PRN May take 1 tab daily as needed if legs are increasingly getting edematouseven with elevation. significant wt gain of at least 2 pounds in 1day with associated shortness of breath, unable to lay flat witout getting short of breath. And call Dr. West's office. Losartan Potassium 50 Mg Tablet 50 Mg PO DAILY 30 Days Reported Klor-Con 10 (Potassium Chloride) 10 Meq Tablet.er 10 Meq PO DAILY Super B Complex (Vitamin B Complex & Vit C No.4) 150 Mg Tablet 150 Mg PO Centrum Silver Men Tablet (Multivit-Min/FA/Lycopen/Lutein) 1 Each Tablet 1 Each PO Calcium + D3 Er Tablet (Calcium Carb & Cit/Vitamin D3) 1 Each Tablet.er 1 Each PO Vitamin C (Ascorbic Acid) 1,000 Mg Tablet 1,000 Mg PO Coq-10 (Ubidecarenone) 100 Mg Capsule 400 Mg PO Glucosamine (Glucosamine Sulfate 2KCL) 1,000 Mg Tablet 1,000 Mg PO Ferrous Sulfate 325 Mg Tablet 1 Tab PO DAILY Spiriva (Tiotropium [place]) 18 Mcg Cap.w.dev 2 Inh IH DAILY Ipratropium [place] 0.2 Mg/1 Ml Solution 1 Vial NEB QID Gabapentin (Gabapentin) 100 Mg Capsule 100 Mg PO TID Omeprazole 20 Mg Capsule.dr 20 Mg PO DAILY Tamsulosin Hcl 0.4 Mg Cap.er.24h 1 Cap PO DAILY Amlodipine Besylate 5 Mg Tablet 5 Mg PO DAILY Atorvastatin Calcium 10 Mg Tablet 10 Mg PO HS Metformin Hcl 500 Mg Tablet 500 Mg PO BIDWMEALS Allopurinol 100 Mg Tablet 1 Tab PO DAILY Hydrochlorothiazide Tablet (Hydrochlorothiazide) 12.5 Mg Tablet 1 Tab PO DAILY Allergies Allergies: Coded Allergies: No Known Drug Allergies (Unverified , 08/08/17) ROS Review of System 14 PT ROS OTHERWISE NEG General: YES: Fatigue; No: Chills, Night Sweats, Malaise, Appetite, Other PSYCHOLOGICAL ROS: No: Anxiety, Behavioral Disorder, Concentration difficultie, Decreased libido, Depression, Disorientation, Hallucinations, Hostility, Irritablity, Memory difficulties, Mood Swings, Obsessive thoughts, Physical abuse, Sexual abuse, Sleep disturbances, Suicidal ideation, Other HEENT: No: Heacaches, Visual Changes, Hearing change, Nasal congestion, Nasal discharge, Oral lesions, Sinus pain, Sore Throat, Epistaxis, Sneezing, Snoring, Tinnitus, Vertigo, Vocal changes, Other ALLERGY AND IMMUNOLOGY: No: Hives, Insect Bite Sensitivity, Itchy/Watery Eyes, Nasal Congestion, Post Nasal Drip, Seasonal Allergies, Other Hematological and Lymphatic: No: Bleeding Problems, Blood Clots, Blood Transfusions, Brusing, Night Sweats, Pallor, Swollen Lymph Nodes, Other ENDOCRINE: No: Breast Changes, Galactorrhea, Hair Pattern Changes, Hot Flashes, Malaise/lethargy, Mood Swings, Palpitations, Polydipsia/polyuria, Skin Changes, Temperature Intolerance, Unexpected Weight Changes, Other Respiratory: No: Cough, Hemoptysis, Orthopnea, Pleuritic Pain, Shortness of breath, SOB with excertion, Sputum Changes, Stridor, Tachypnea, Wheezing, Other Cardiovascular: No Chest Pain, No Palpitations, No Orthopnea, No Paroxysmal Noc. Dyspnea, No Edema, No Lt Headedness, No Other Gastrointestinal: No Nausea, No Vomiting, No Abdominal Pain, No Diarrhea, No Constipation, No Melena, No Hematochezia, No Other Musculoskeletal: Yes Gait Disturbance, Yes Joint Pain, Yes Joint Stiffness, Yes Joint Swelling, Yes Muscular Weakness, Yes Pain In: (R KNEE); No Muscle Pain, No Swelling In:, No Other Neurological: Yes Gait Disturbance, Yes Impaired Coord/balance Skin: No Dry Skin, No Eczema, No Hair Changes, No Lumps, No Mole Changes, No Mottling, No Nail Changes, No Pruritus, No Rash, No Skin Lesion Changes, No Other, No Acne Physical Exam Physical Exam Physical Exam: PE: Constitutional: Well developed, well nourished, MILD acute distress, non-toxic appearance. [] HENT: Normocephalic, atraumatic, bilateral external ears normal, oropharynx moist, no oral exudates, nose normal. [] Eyes: PERRLA, EOMI, conjunctiva normal, no discharge. [] Neck: Normal range of motion, no tenderness, supple, no stridor. [] Cardiovascular:Heart rate regular rhythm, no murmur [] Lungs & Thorax: Bilateral breath sounds clear to auscultation [] Abdomen: Bowel sounds normal, soft, no tenderness, no masses, no pulsatile masses. [] Skin: Warm, dry, no erythema, no rash. [] Back: No tenderness, no CVA tenderness. [] Extremities: Right anterior knee tenderness, no cyanosis, no clubbing, ROM intact, 3+ edema. [] Neurologic: Alert and oriented X 3, normal motor function, normal sensory function, no focal deficits noted. [] Psychologic: Affect normal, judgment normal, mood normal. [] General: Alert, Oriented X3, Cooperative, mild distress HEENT: EOMI Lungs: Clear to auscultation, Normal air movement Heart: RRR Breasts: Not examined Abdomen: Normal bowel sounds, Soft Rectal Exam: not examined PELVIC: Examination not indicated Extremities: No cyanosis Neuro: Normal speech, Cranial nerves 3-12 NL Psych/Mental Status: Mental status NL, Mood NL Vitals Vitals Vital Signs Date Time Temp Pulse Resp B/P (MAP) Pulse Ox O2 Delivery O2 Flow Rate FiO2 02/15/20 10:29 20 94 Room Air 02/15/20 09:50 98.3 100 108/63 (78) 98.3 Images Images EXAM: Right knee, 3 views. HISTORY: Pain. Fall. COMPARISON: None. FINDINGS: 3 views the right knee are obtained. There is medial compartment joint space narrowing with subchondral sclerosis and spurring. There is also mild lateral and patellofemoral compartment spurring. There is chondrocalcinosis. There is a small joint effusion. There are small joint loose bodies. IMPRESSION: 1. 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 2. Small joint effusion. Electronically signed by: Romelia Gruber MD (02/15/2020 10:35 AM) [id number] DICTATED and SIGNED BY: ROMELIA GRUBER MD DATE: 02/15/20 1035 VTE Prophylaxis Ordered VTE Prophylaxis Devices: Contraindicated VTE Pharmacological Prophylaxi: Yes Assessment/Plan Assessment/Plan IMPRESSION: 1. FALL with intractable knee pain, unable to ambulate 2. 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 3. Small joint effusion. 4. morbid obesity 5. GERD 6. COPD 7. HTN 8. HYPERLIPIDEMIA 9. Diabetes plan admit bedrest consult ORTHO PAIN CONTROL DVT PROPHYLAXIS PT/OT HOME MEDS D/W ER dr Hoang of Admission Dx: Justifications for Admission: Justification of Admission Dx: Yes Comments: high fall risk, unable to ambulate GUILLERMO OLIVA MD Feb 15, 2020 11:36
[2020-02-15] MEDS ORDERED: ONDANSETRON PF 4 MG/2 ML VIAL. IV PRN (11:45)
[2020-02-15] MEDS ORDERED: cloNIDine HCL 0.1 MG TABLET PO PRN (11:45)
[2020-02-15] MEDS ORDERED: 0.9 % SODIUM CHLORIDE 10 ML DISP.SYRIN. IV PRN (11:45)
[2020-02-15] MEDS ORDERED: ACETAMINOPHEN 325 MG TABLET. PO PRN (11:45)
[2020-02-15] MEDS ORDERED: LORazepam 0.5 MG TABLET PO PRN (11:45)
[2020-02-15] MEDS ORDERED: guaiFENesin ORAL 200 MG/10 ML LIQUID. PO PRN (11:45)
[2020-02-15] MEDS ORDERED: DOCUSATE SODIUM 100 MG CAPSULE. PO PRN (11:45)
[2020-02-15] MEDS ORDERED: SODIUM PHOSPHATES 19/7GM 133 ML ENEMA. PR PRN (11:45)
[2020-02-15] MEDS ORDERED: MAG HYDROX/ALUMINUM HYD/SIMETH 30 ML ORAL.SUSP PO PRN (11:45)
[2020-02-15] MEDS: IPRATRPIUM/ALBUTEROL 0.5/2.5MG 3 ML NEBU. NEB SCH ×4 (12:00→23:35)
[2020-02-15] MEDS: ENOXAPARIN 40 MG/0.4 ML SYRINGE. SQ SCH (12:11)
--- NOTE | 2020-02-15 13:00 | NUR ---
Admitted from ER by w/c. Took 3 person assist to get pt into the bed from w/c. A/o x's 4. C/o pain when placing weight on right leg. Pitting edema noted +3 feet and ankles. Redness note buttocks with no open areas. IV on left hand s/l. Oriented to room and controls. Side rails up x's 2 with call light in reach. at bedside. Cont. monitor.
[2020-02-15 13:30] VITALS: BP 125/64
[2020-02-15 14:27] VITALS: BP 125/54
[2020-02-15] MEDS ORDERED: BUMETANIDE 1 MG TABLET. PO PRN (16:15)
[2020-02-15] MEDS ORDERED: DEXTROSE 50% 25 GM / 50ML DISP.SYRIN. IV PRN (16:30)
[2020-02-15 16:43] LABS: BASO % 0 % (0-3); EOS # 0.1 x10^3/uL (0.0-0.7); EOS % 1 % (0-3); HEMATOCRIT 39.2 % (39.0-53.0); HEMOGLOBIN 13.4 g/dL (13.0-17.5); LYMPH # 1.3 x10^3/uL (1.0-4.8); LYMPH % 16 % (24-48); MEAN CORPUSCULAR HEMOGLOBIN 29 pg (25-35); MEAN CORPUSCULAR HGB CONC 34 g/dL (31-37); MEAN CORPUSCULAR VOLUME 84 fL (79-100); MONO # 1.1 x10^3/uL (0.0-1.1); MONO % 14 % (0-9); NEUT # 5.5 x10^3/uL (1.8-7.7); NEUT % 69 % (31-73); PLATELET COUNT 281 x10^3/uL (140-400); RED BLOOD COUNT 4.65 x10^6/uL (4.30-5.70); RED CELL DISTRIBUTION WIDTH 14.9 % (11.5-14.5); WHITE BLOOD COUNT 8.1 x10^3/uL (4.0-11.0)
[2020-02-15] MEDS ORDERED: IPRATROPIUM BROMIDE 0.5 MG/2.5 ML NEBU. NEB SCH (17:00)
[2020-02-15] MEDS ORDERED: metFORMIN 500 MG TABLET PO SCH (17:00)
[2020-02-15] MEDS: INSULIN LISPRO 300 UNITS/3 ML VIAL. SQ SCH (17:00)
[2020-02-15] MEDS: metFORMIN 500 MG TABLET PO SCH (17:35)
[2020-02-15 18:08] LABS: ALBUMIN/GLOBULIN RATIO 0.7 (1.0-1.7); CALCIUM 8.6 mg/dL (8.5-10.1); CREATININE 1.6 mg/dL (0.7-1.3); GFR 41.7; POTASSIUM 3.1 mmol/L (3.5-5.1); TOTAL BILIRUBIN 1.2 mg/dL (0.2-1.0); TOTAL PROTEIN 7.6 g/dL (6.4-8.2)
[2020-02-15 19:00] VITALS: BP 131/49
[2020-02-15] MEDS ORDERED: POTASSIUM CHLORIDE 20 MEQ TABLET.ER. PO ONE (19:30)
[2020-02-15] MEDS: ATORVASTATIN CALCIUM 10 MG TABLET. PO SCH (20:26)
[2020-02-15] MEDS: GABAPENTIN 100 MG CAPSULE. PO SCH (20:26)
[2020-02-15 23:00] VITALS: BP 117/49
[2020-02-16] VITALS (7 sets, daily range): BP systolic 99–136; BP diastolic 36–75
[2020-02-16] MEDS: IPRATRPIUM/ALBUTEROL 0.5/2.5MG 3 ML NEBU. NEB SCH ×6 (03:22→23:45)
[2020-02-16] MEDS: PANTOPRAZOLE 40 MG TABLET.DR. PO SCH (06:15)
[2020-02-16 06:20] LABS: CALCIUM 8.7 mg/dL (8.5-10.1); CREATININE 1.4 mg/dL (0.7-1.3); GFR 48.6; MAGNESIUM 1.6 mg/dL (1.8-2.4)
[2020-02-16] MEDS: INSULIN LISPRO 300 UNITS/3 ML VIAL. SQ SCH ×3 (08:00→16:51)
[2020-02-16] MEDS ORDERED: methylPREDNISolone ACETATE 80 MG/ML VIAL. INJ ONE (08:15)
[2020-02-16] MEDS ORDERED: LIDOCAINE 1% PF 30 ML VIAL. INJ ONE (08:15)
[2020-02-16] MEDS: metFORMIN 500 MG TABLET PO SCH (08:18)
[2020-02-16] MEDS: FERROUS SULFATE 325 MG TABLET. PO SCH (08:19)
[2020-02-16] MEDS: TAMSULOSIN 0.4 MG CAP.ER.24H. PO SCH (08:19)
[2020-02-16] MEDS: ASCORBIC ACID 500 MG TABLET PO SCH (08:19)
[2020-02-16] MEDS: POTASSIUM CHLORIDE 10 MEQ TABLET.ER. PO SCH (08:19)
[2020-02-16] MEDS: ALLOPURINOL 100 MG TABLET. PO SCH (08:19)
[2020-02-16] MEDS: DULoxetine HCL 30 MG CAPSULE.DR PO SCH (08:19)
[2020-02-16] MEDS: GABAPENTIN 100 MG CAPSULE. PO SCH ×3 (08:20→21:06)
[2020-02-16] MEDS: amLODIPine BESYLATE 5 MG TABLET PO SCH (08:24)
[2020-02-16] MEDS: LOSARTAN POTASSIUM 50 MG TABLET. PO SCH (08:24)
--- NOTE | 2020-02-16 08:52 | PDOC2 ---
CONSULT Date of Consult Date of Consult DATE: 02/16/20 TIME: 08:50 Reason for Consult Reason for Consult: Right knee pain Referring Physician Referring Physician: Moise Identification/Chief Complaint Chief Complaint Right knee pain Source Source: Chart review, Patient History of Present Illness Reason for Visit: Patient is a pleasant 79-year-old gentleman who had a twisting episode to his right knee a couple days ago while in his bathroom and had the acute onset of pain and difficulty ambulating secondary to pain at his knee. He feels the pain all around his knee, worse with movement and ambulation. He has had some episodes of knee pain in the past, cortisone has helped these from other providers. He denies any swelling in his knee. He denies any radiation of the pain. Past Medical History Cardiovascular: CHF, HTN, Hyperlipidemia Pulmonary: Other CENTRAL NERVOUS SYSTEM: Periperal neuropathy GI: GERD, Other Heme/Onc: No pertinent hx Hepatobiliary: Other Psych: Depression Musculoskeletal: Osteoarthritis, Weakness, Swelling, Other (RIGHT KNEE PAIN) Rheumatologic: Gout Infectious disease: No pertinent hx ENT: No pertinent hx Renal/: Benign prostatic enlarg. Endocrine: Diabetes Past Surgical History Past Surgical History: Other Family History Family History: Heart Disease Social History No ALCOHOL: none Drugs: None Lives: with Family Current Problem List Problem List Problems Medical Problems: (1) Knee pain, right Status: Acute (2) Unable to ambulate Status: Acute Current Medications Current Medications Current Medications Acetaminophen/ Hydrocodone Bitart (Lortab 5/325) 1 tab 1X ONCE PO Last administered on 02/15/20at 10:29; Start 02/15/20 at 10:15; Stop 02/15/20 at 10:25; Status DC Sodium Chloride (Normal Saline Flush) 3 ml QSHIFT PRN IV AFTER MEDS AND BLOOD DRAWS; Start 02/15/20 at 11:45 Ondansetron HCl (Zofran) 4 mg PRN Q4HRS PRN IV NAUSEA/VOMITING; Start 02/15/20 at 11:45 Acetaminophen (Tylenol) 650 mg PRN Q4HRS PRN PO TEMP OVER 100.4F OR MILD PAIN Last administered on 02/15/20at 22:07; Start 02/15/20 at 11:45 Al Hydroxide/Mg Hydroxide (Mylanta Plus Xs) 30 ml PRN DAILY PRN PO HEARTBURN / GAS; Start 02/15/20 at 11:45 Clonidine HCl (Catapres) 0.1 mg PRN Q6HRS PRN PO SBP>160 OR DBP>90; Start 02/15/20 at 11:45 Sodium Monofluorophosphate (Fleet Adult) 133 ml PRN DAILY PRN ND CONSTIPATION; Start 02/15/20 at 11:45 Docusate Sodium (Colace) 100 mg PRN BID PRN PO HARD STOOLS; Start 02/15/20 at 11:45 Albuterol/ Ipratropium (Duoneb) 3 ml Q4H NEB Last administered on 02/16/20at 07:10; Start 02/15/20 at 12:00 Guaifenesin (Robitussin) 200 mg PRN Q4HRS PRN PO COUGH; Start 02/15/20 at 11:45 Lorazepam (Ativan) 0.5 mg PRN Q4HRS PRN PO ANXIETY / AGITATION; Start 02/15/20 at 11:45 Enoxaparin Sodium (Lovenox 40mg Syringe) 40 mg Q24H SQ Last administered on 02/15/20at 12:11; Start 02/15/20 at 11:45 Amlodipine Besylate (Norvasc) 5 mg DAILY PO Last administered on 02/16/20at 08:24; Start 02/16/20 at 09:00 Atorvastatin Calcium (Lipitor) 10 mg HS PO Last administered on 02/15/20at 20:26; Start 02/15/20 at 21:00 Ferrous Sulfate (Feosol) 325 mg DAILYWBKFT PO Last administered on 02/16/20at 08:19; Start 02/16/20 at 09:00 Gabapentin (Neurontin) 100 mg TID PO Last administered on 02/16/20at 08:20; Start 02/15/20 at 21:00 Ipratropium [place] (Atrovent) 0.2 mg QID NEB ; Start 02/15/20 at 17:00; Status UNV Tamsulosin HCl (Flomax) 0.4 mg DAILY PO Last administered on 02/16/20at 08:19; Start 02/16/20 at 09:00 Non-Formulary Medication (Tiotropium [place] (Spiriva)) 2 inh DAILY IH ; Start 02/16/20 at 09:00; Status UNV Metformin HCl (Glucophage) 500 mg BIDWMEALS PO ; Start 02/15/20 at 17:00; Stop 02/15/20 at 17:31; Status DC Hydrochlorothiazide (Microzide) 12.5 mg DAILY PO Last administered on 02/16/20at 08:23; Start 02/16/20 at 09:00 Pantoprazole Sodium (Protonix) 40 mg DAILYAC PO Last administered on 02/16/20at 06:15; Start 02/16/20 at 07:30 Potassium Chloride (Klor-Con) 10 meq DAILYWBKFT PO Last administered on 02/16/20at 08:19; Start 02/16/20 at 08:00 Allopurinol (Zyloprim) 100 mg DAILY PO Last administered on 02/16/20at 08:19; Start 02/16/20 at 09:00 Bumetanide (Bumex) 1 mg DAILY PRN PO SEE COMMENTS; Start 02/15/20 at 16:15 Duloxetine HCl (Cymbalta) 30 mg DAILY PO Last administered on 02/16/20at 08:19; Start 02/16/20 at 09:00 Losartan Potassium (Cozaar) 50 mg DAILY PO Last administered on 02/16/20at 08:24; Start 02/16/20 at 09:00 Ascorbic Acid (Vitamin C) 1,000 mg DAILY PO Last administered on 02/16/20at 08:19; Start 02/16/20 at 09:00 Insulin Human Lispro (HumaLOG) 0-5 UNITS TIDWMEALS SQ ; Start 02/15/20 at 17:00 Dextrose (Dextrose 50%-Water Syringe) 12.5 gm PRN Q15MIN PRN IV SEE COMMENTS; Start 02/15/20 at 16:30 Metformin HCl (Glucophage) 1,000 mg BIDWMEALS PO Last administered on 02/16/20at 08:18; Start 02/15/20 at 17:30 Potassium Chloride (Klor-Con) 40 meq 1X ONCE PO Last administered on 02/15/20at 20:26; Start 02/15/20 at 19:30; Stop 02/15/20 at 19:31; Status DC Lidocaine HCl (Xylocaine 1% Pf 30ml Vial) 30 ml 1X ONCE INJ ; Start 02/16/20 at 08:15; Stop 02/16/20 at 08:16; Status DC Methylprednisolone Acetate (DEPO-Medrol 80MG VIAL) 80 mg 1X ONCE INJ ; Start 02/16/20 at 08:15; Stop 02/16/20 at 08:16; Status DC Active Scripts Active Cymbalta (Duloxetine Hcl) 30 Mg Capsule.dr 30 Mg PO DAILY 30 Days Bumetanide 1 Mg Tablet 1 Tab PO DAILY PRN May take 1 tab daily as needed if legs are increasingly getting edematouseven with elevation. significant wt gain of at least 2 pounds in 1day with associated shortness of breath, unable to lay flat witout getting short of breath. And call Dr. West's office. Losartan Potassium 50 Mg Tablet 50 Mg PO DAILY 30 Days Reported Klor-Con 10 (Potassium Chloride) 10 Meq Tablet.er 10 Meq PO DAILY Super B Complex (Vitamin B Complex & Vit C No.4) 150 Mg Tablet 150 Mg PO Centrum Silver Men Tablet (Multivit-Min/FA/Lycopen/Lutein) 1 Each Tablet 1 Each PO Calcium + D3 Er Tablet (Calcium Carb & Cit/Vitamin D3) 1 Each Tablet.er 1 Each PO Vitamin C (Ascorbic Acid) 1,000 Mg Tablet 1,000 Mg PO Coq-10 (Ubidecarenone) 100 Mg Capsule 400 Mg PO Glucosamine (Glucosamine Sulfate 2KCL) 1,000 Mg Tablet 1,000 Mg PO Ferrous Sulfate 325 Mg Tablet 1 Tab PO DAILY Spiriva (Tiotropium [place]) 18 Mcg Cap.w.dev 2 Inh IH DAILY Ipratropium [place] 0.2 Mg/1 Ml Solution 1 Vial NEB QID Gabapentin (Gabapentin) 100 Mg Capsule 100 Mg PO TID Omeprazole 20 Mg Capsule.dr 20 Mg PO DAILY Tamsulosin Hcl 0.4 Mg Cap.er.24h 1 Cap PO DAILY Amlodipine Besylate 5 Mg Tablet 5 Mg PO DAILY Atorvastatin Calcium 10 Mg Tablet 10 Mg PO HS Metformin Hcl 500 Mg Tablet 500 Mg PO BIDWMEALS Allopurinol 100 Mg Tablet 1 Tab PO DAILY Hydrochlorothiazide Tablet (Hydrochlorothiazide) 12.5 Mg Tablet 1 Tab PO DAILY Allergies Allergies: Coded Allergies: No Known Drug Allergies (Unverified , 08/08/17) ROS General: No: Chills, Night Sweats, Fatigue, Malaise, Appetite, Other PSYCHOLOGICAL ROS: No: Anxiety, Behavioral Disorder, Concentration difficultie, Decreased libido, Depression, Disorientation, Hallucinations, Hostility, Irritablity, Memory difficulties, Mood Swings, Obsessive thoughts, Physical abuse, Sexual abuse, Sleep disturbances, Suicidal ideation, Other Eyes: No Blurry vision, No Decreased vision, No Double vision, No Dry eyes, No Excessive tearing, No Eye Pain, No Itchy Eyes, No Loss of vision, No Photophobia, No Scotomata, No Uses contacts, No Uses glasses, No Other HEENT: No: Heacaches, Visual Changes, Hearing change, Nasal congestion, Nasal discharge, Oral lesions, Sinus pain, Sore Throat, Epistaxis, Sneezing, Snoring, Tinnitus, Vertigo, Vocal changes, Other ALLERGY AND IMMUNOLOGY: No: Hives, Insect Bite Sensitivity, Itchy/Watery Eyes, Nasal Congestion, Post Nasal Drip, Seasonal Allergies, Other Hematological and Lymphatic: No: Bleeding Problems, Blood Clots, Blood Transfusions, Brusing, Night Sweats, Pallor, Swollen Lymph Nodes, Other ENDOCRINE: No: Breast Changes, Galactorrhea, Hair Pattern Changes, Hot Flashes, Malaise/lethargy, Mood Swings, Palpitations, Polydipsia/polyuria, Skin Changes, Temperature Intolerance, Unexpected Weight Changes, Other Respiratory: No: Cough, Hemoptysis, Orthopnea, Pleuritic Pain, Shortness of breath, SOB with excertion, Sputum Changes, Stridor, Tachypnea, Wheezing, Other Cardiovascular: No Chest Pain, No Palpitations, No Orthopnea, No Paroxysmal Noc. Dyspnea, No Edema, No Lt Headedness, No Other Gastrointestinal: No Nausea, No Vomiting, No Abdominal Pain, No Diarrhea, No Constipation, No Melena, No Hematochezia, No Other Genitourinary: No Dysuria, No Frequency, No Incontinence, No Hematuria, No Retention, No Discharge, No Urgency, No Pain, No Flank Pain, No Other, No , No , No , No , No , No , No Musculoskeletal: Yes Joint Pain, Yes Joint Stiffness Neurological: Yes Gait Disturbance; No Behavorial Changes, No Bowel/Bladder ControlChng, No Confusion, No Headaches, No Impaired Coord/balance, No Memory Loss, No Numbness/Tingling, No Seizures, No Speech Problems, No Tremors, No Visual Changes, No Weakness, No Other Skin: No Dry Skin, No Eczema, No Hair Changes, No Lumps, No Mole Changes, No Mottling, No Nail Changes, No Pruritus, No Rash, No Skin Lesion Changes, No Other, No Acne Physical Exam General: Alert, Oriented X3 HEENT: Atraumatic, EOMI, Other (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 He is tender at medial lateral joint lines. Range of motion today is 3 degrees to 80 degrees. Knee is stable to varus and valgus.) Vitals VITALS Vital Signs Date Time Temp Pulse Resp B/P (MAP) Pulse Ox O2 Delivery O2 Flow Rate FiO2 02/16/20 08:24 98 131/77 02/16/20 07:11 93 Room Air 02/16/20 07:05 98.0 18 98.0 Labs Labs Laboratory Tests Test 02/15/20 11:57 02/15/20 16:31 02/15/20 17:10 02/15/20 21:07 White Blood Count 8.1 x10^3/uL (4.0-11.0) Red Blood Count 4.65 x10^6/uL (4.30-5.70) Hemoglobin 13.4 g/dL (13.0-17.5) Hematocrit 39.2 % (39.0-53.0) Mean Corpuscular Volume 84 fL (79-100) Mean Corpuscular Hemoglobin 29 pg (25-35) Mean Corpuscular Hemoglobin Concent 34 g/dL (31-37) Red Cell Distribution Width 14.9 % (11.5-14.5) Platelet Count 281 x10^3/uL (140-400) Neutrophils (%) (Auto) 69 % (31-73) Lymphocytes (%) (Auto) 16 % (24-48) Monocytes (%) (Auto) 14 % (0-9) Eosinophils (%) (Auto) 1 % (0-3) Basophils (%) (Auto) 0 % (0-3) Neutrophils # (Auto) 5.5 x10^3/uL (1.8-7.7) Lymphocytes # (Auto) 1.3 x10^3/uL (1.0-4.8) Monocytes # (Auto) 1.1 x10^3/uL (0.0-1.1) Eosinophils # (Auto) 0.1 x10^3/uL (0.0-0.7) Basophils # (Auto) 0.0 x10^3/uL (0.0-0.2) Glucose (Fingerstick) 146 mg/dL (70-99) 158 mg/dL (70-99) Sodium Level 138 mmol/L (136-145) Potassium Level 3.1 mmol/L (3.5-5.1) Chloride Level 95 mmol/L (98-107) Carbon Dioxide Level 36 mmol/L (21-32) Anion Gap 7 (6-14) Blood Urea Nitrogen 33 mg/dL (8-26) Creatinine 1.6 mg/dL (0.7-1.3) Estimated GFR (Cockcroft-Gault) 41.7 BUN/Creatinine Ratio 21 (6-20) Glucose Level 144 mg/dL (70-99) Calcium Level 8.6 mg/dL (8.5-10.1) Total Bilirubin 1.2 mg/dL (0.2-1.0) Aspartate Amino Transf (AST/SGOT) 43 U/L (15-37) Alanine Aminotransferase (ALT/SGPT) 44 U/L (16-63) Alkaline Phosphatase 218 U/L (46-116) Total Protein 7.6 g/dL (6.4-8.2) Albumin 3.0 g/dL (3.4-5.0) Albumin/Globulin Ratio 0.7 (1.0-1.7) Test 02/16/20 05:50 02/16/20 07:04 Sodium Level 141 mmol/L (136-145) Potassium Level 4.0 mmol/L (3.5-5.1) Chloride Level 101 mmol/L (98-107) Carbon Dioxide Level 32 mmol/L (21-32) Anion Gap 8 (6-14) Blood Urea Nitrogen 25 mg/dL (8-26) Creatinine 1.4 mg/dL (0.7-1.3) Estimated GFR (Cockcroft-Gault) 48.6 Glucose Level 116 mg/dL (70-99) Calcium Level 8.7 mg/dL (8.5-10.1) Magnesium Level 1.6 mg/dL (1.8-2.4) Glucose (Fingerstick) 112 mg/dL (70-99) Laboratory Tests Test 02/15/20 11:57 02/15/20 16:31 02/15/20 17:10 02/15/20 21:07 White Blood Count 8.1 x10^3/uL (4.0-11.0) Red Blood Count 4.65 x10^6/uL (4.30-5.70) Hemoglobin 13.4 g/dL (13.0-17.5) Hematocrit 39.2 % (39.0-53.0) Mean Corpuscular Volume 84 fL (79-100) Mean Corpuscular Hemoglobin 29 pg (25-35) Mean Corpuscular Hemoglobin Concent 34 g/dL (31-37) Red Cell Distribution Width 14.9 % (11.5-14.5) Platelet Count 281 x10^3/uL (140-400) Neutrophils (%) (Auto) 69 % (31-73) Lymphocytes (%) (Auto) 16 % (24-48) Monocytes (%) (Auto) 14 % (0-9) Eosinophils (%) (Auto) 1 % (0-3) Basophils (%) (Auto) 0 % (0-3) Neutrophils # (Auto) 5.5 x10^3/uL (1.8-7.7) Lymphocytes # (Auto) 1.3 x10^3/uL (1.0-4.8) Monocytes # (Auto) 1.1 x10^3/uL (0.0-1.1) Eosinophils # (Auto) 0.1 x10^3/uL (0.0-0.7) Basophils # (Auto) 0.0 x10^3/uL (0.0-0.2) Glucose (Fingerstick) 146 mg/dL (70-99) 158 mg/dL (70-99) Sodium Level 138 mmol/L (136-145) Potassium Level 3.1 mmol/L (3.5-5.1) Chloride Level 95 mmol/L (98-107) Carbon Dioxide Level 36 mmol/L (21-32) Anion Gap 7 (6-14) Blood Urea Nitrogen 33 mg/dL (8-26) Creatinine 1.6 mg/dL (0.7-1.3) Estimated GFR (Cockcroft-Gault) 41.7 BUN/Creatinine Ratio 21 (6-20) Glucose Level 144 mg/dL (70-99) Calcium Level 8.6 mg/dL (8.5-10.1) Total Bilirubin 1.2 mg/dL (0.2-1.0) Aspartate Amino Transf (AST/SGOT) 43 U/L (15-37) Alanine Aminotransferase (ALT/SGPT) 44 U/L (16-63) Alkaline Phosphatase 218 U/L (46-116) Total Protein 7.6 g/dL (6.4-8.2) Albumin 3.0 g/dL (3.4-5.0) Albumin/Globulin Ratio 0.7 (1.0-1.7) Test 02/16/20 05:50 02/16/20 07:04 Sodium Level 141 mmol/L (136-145) Potassium Level 4.0 mmol/L (3.5-5.1) Chloride Level 101 mmol/L (98-107) Carbon Dioxide Level 32 mmol/L (21-32) Anion Gap 8 (6-14) Blood Urea Nitrogen 25 mg/dL (8-26) Creatinine 1.4 mg/dL (0.7-1.3) Estimated GFR (Cockcroft-Gault) 48.6 Glucose Level 116 mg/dL (70-99) Calcium Level 8.7 mg/dL (8.5-10.1) Magnesium Level 1.6 mg/dL (1.8-2.4) Glucose (Fingerstick) 112 mg/dL (70-99) Images Images Nonweightbearing knee x-rays demonstrate advanced degenerative changes tricompartmentally Assessment/Plan Assessment/Plan I did discuss different treatment options with him, we both thought trying a co rtisone injection to help his knee pain I would be reasonable. Therefore, after informed consent and sterile prep over the superolateral right knee, and after confirming appropriate site, I injected 80 mg of Depo-Medrol and local anesthetic without complication. The area was cleansed and dried and a sterile dressing was applied. He tolerated this well. He can weight-bear as tolerated, I would recommend PT and OT. Disposition per primary. He can follow-up with Dr. Booker in 4 to 6 weeks. CEDRICK SEXTON II, MD Feb 16, 2020 08:52
[2020-02-16] MEDS ORDERED: LIDOCAINE 1% PF 5 ML VIAL. ONE (09:00)
[2020-02-16] MEDS ORDERED: NON FORMULARY ITEM (Tiotropium Bromide (Spiriva) 2 INH) IH SCH (09:00)
[2020-02-16] MEDS ORDERED: hydroCHLOROthiazide 12.5 MG CAPSULE PO SCH (09:00)
[2020-02-16] MEDS ORDERED: methylPREDNISolone ACETATE 80 MG/ML VIAL. ONE (09:00)
--- NOTE | 2020-02-16 10:19 | NUR ---
[facility]ON[facility] following. Discussed with RN, pt from home with , room air, ADA diet, pt uses a walker at home. Pt having knee injected today. PT/OT ordered to determine therapy needs at discharge. [facility]ONOR will continue to follow. Addendum: 02/16/20 at 1619 by MANSI GALVEZ PT/OT on hold for knee injections. Dr. Hernandez gave LEONOR a script for an electric wheelchair for pt. [facility] contacted [facility] - they are in network with pt's insurance and will fax a document for therapy to complete for LEONOR to send with script and physician documentation of why pt needs motorized wheelchair. Physician notified. [facility]ONOR will continue to follow.
[2020-02-16] MEDS ORDERED: MAGNESIUM SULFATE 2GM 50 ML IV ONE (11:00)
--- NOTE | 2020-02-16 11:03 | PDOC ---
PROGRESS NOTES Chief Complaint Chief Complaint A/P: Unable to walk - due to severe osteoarthritis. He is not an appropriate candidate for TKR given his CHF CAREY - vasomotor nephropathy - cr improved from 1.6 to 1.4 Hypokalemia - improved Hypomagnesemia - will replace FALL with intractable knee pain, unable to ambulate Mild medial compartment predominant osteoarthritis of the right knee with chondrocalcinosis and suspected joint loose bodies. morbid obesity GERD - ppi COPD - prn albuterol HTN - amlodipine HYPERLIPIDEMIA - statin Diabetes - given age and renal function would recommend d/c of metformin. controlled withprior A1C at 6.3 Syncope with nontraumatic fall: Vasovagal with associated dehydration. 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 Hepatic steatosis History of Present Illness History of Present Illness Mr Gomes is an 79 yo M w/ PMHx DM2, GERD, HLD, HTN, dCHF, gout, sleep apnea who presents with INTRACTABLE RIGHT KNEE PAIN ON Saturday he was sitting on the toilet and was cleaning himself and holding onto the handlebars on the side collins when he lost his balance and his plastic boat patcher and fell onto his right knee. He usually walks with a walker and he is unable to bear a lot of weight on that knee. He states KNEE IS very painful. states that she has been having to get him up and around. Unable to stand up or get up out of the wheelchair on his own even with help NOT ABLE TO SAFELY D/C FROM ER TODAY DUE TO FALL RISK K was 3.1, Cr 1.6, Mg 1.6. He is still in diffuse joint pain, no SOB or CP. Afebrile. Labs improved. Cr 1.4. Discussed possibility of right knee injection with ortho as well as staple removal from his head wound. Also discussed with his above issues and ambulation issues a motorized wheelchair would be appropriate.\ He resides at home with his , which they are currently updating for handicapped accessibility due to the increasing frequency of his falls and severity of his osteoarthritis which is making him nearly non-ambulatory. This is complicated by his CHF which is NYHA III/IV. He is becoming dependent upon his caregivers for 30-40% of his ADLs and MRADLs. His home is fully wheelchair accessible. He cannot safely use a cane or a walker with the frequency of his falls. He is able to self-propel a manual wheelchair very short distances, and is dependent upon other in all areas of transfers, weight shifts, self care, and activities of daily living. A motorized wheelchair will provide him with optimal positioning and safety at home, during transportation, as well as in the community. He will be using the chair for approximately 4-6 hours per day. The chair will be used for positioning at home to allow for increased participation and safety during daily activities. In addition, the chair will be used to attend all necessary medical appointments. Vitals Vitals Vital Signs Date Time Temp Pulse Resp B/P (MAP) Pulse Ox O2 Delivery O2 Flow Rate FiO2 02/16/20 08:24 98 131/77 02/16/20 08:05 Room Air 02/16/20 07:11 93 02/16/20 07:05 98.0 18 98.0 Physical Exam General: Alert, Oriented X3 Heart: Regular rate Lungs: Clear Abdomen: Soft, No tenderness Extremities: No edema, Normal pulses Skin: No rashes Labs LABS Laboratory Tests Test 02/15/20 11:57 02/15/20 16:31 02/15/20 17:10 02/15/20 21:07 White Blood Count 8.1 x10^3/uL (4.0-11.0) Red Blood Count 4.65 x10^6/uL (4.30-5.70) Hemoglobin 13.4 g/dL (13.0-17.5) Hematocrit 39.2 % (39.0-53.0) Mean Corpuscular Volume 84 fL (79-100) Mean Corpuscular Hemoglobin 29 pg (25-35) Mean Corpuscular Hemoglobin Concent 34 g/dL (31-37) Red Cell Distribution Width 14.9 % (11.5-14.5) Platelet Count 281 x10^3/uL (140-400) Neutrophils (%) (Auto) 69 % (31-73) Lymphocytes (%) (Auto) 16 % (24-48) Monocytes (%) (Auto) 14 % (0-9) Eosinophils (%) (Auto) 1 % (0-3) Basophils (%) (Auto) 0 % (0-3) Neutrophils # (Auto) 5.5 x10^3/uL (1.8-7.7) Lymphocytes # (Auto) 1.3 x10^3/uL (1.0-4.8) Monocytes # (Auto) 1.1 x10^3/uL (0.0-1.1) Eosinophils # (Auto) 0.1 x10^3/uL (0.0-0.7) Basophils # (Auto) 0.0 x10^3/uL (0.0-0.2) Glucose (Fingerstick) 146 mg/dL (70-99) 158 mg/dL (70-99) Sodium Level 138 mmol/L (136-145) Potassium Level 3.1 mmol/L (3.5-5.1) Chloride Level 95 mmol/L (98-107) Carbon Dioxide Level 36 mmol/L (21-32) Anion Gap 7 (6-14) Blood Urea Nitrogen 33 mg/dL (8-26) Creatinine 1.6 mg/dL (0.7-1.3) Estimated GFR (Cockcroft-Gault) 41.7 BUN/Creatinine Ratio 21 (6-20) Glucose Level 144 mg/dL (70-99) Calcium Level 8.6 mg/dL (8.5-10.1) Total Bilirubin 1.2 mg/dL (0.2-1.0) Aspartate Amino Transf (AST/SGOT) 43 U/L (15-37) Alanine Aminotransferase (ALT/SGPT) 44 U/L (16-63) Alkaline Phosphatase 218 U/L (46-116) Total Protein 7.6 g/dL (6.4-8.2) Albumin 3.0 g/dL (3.4-5.0) Albumin/Globulin Ratio 0.7 (1.0-1.7) Test 02/16/20 05:50 02/16/20 07:04 Sodium Level 141 mmol/L (136-145) Potassium Level 4.0 mmol/L (3.5-5.1) Chloride Level 101 mmol/L (98-107) Carbon Dioxide Level 32 mmol/L (21-32) Anion Gap 8 (6-14) Blood Urea Nitrogen 25 mg/dL (8-26) Creatinine 1.4 mg/dL (0.7-1.3) Estimated GFR (Cockcroft-Gault) 48.6 Glucose Level 116 mg/dL (70-99) Calcium Level 8.7 mg/dL (8.5-10.1) Magnesium Level 1.6 mg/dL (1.8-2.4) Glucose (Fingerstick) 112 mg/dL (70-99) Assessment and Plan Assessmemt and Plan Problems Medical Problems: (1) Knee pain, right Status: Acute (2) Unable to ambulate Status: Acute Comment Review of Relevant I have reviewed the following items paula (where applicable) has been applied. Labs Laboratory Tests Test 02/15/20 11:57 02/15/20 16:31 02/15/20 17:10 02/15/20 21:07 White Blood Count 8.1 x10^3/uL (4.0-11.0) Red Blood Count 4.65 x10^6/uL (4.30-5.70) Hemoglobin 13.4 g/dL (13.0-17.5) Hematocrit 39.2 % (39.0-53.0) Mean Corpuscular Volume 84 fL (79-100) Mean Corpuscular Hemoglobin 29 pg (25-35) Mean Corpuscular Hemoglobin Concent 34 g/dL (31-37) Red Cell Distribution Width 14.9 % (11.5-14.5) Platelet Count 281 x10^3/uL (140-400) Neutrophils (%) (Auto) 69 % (31-73) Lymphocytes (%) (Auto) 16 % (24-48) Monocytes (%) (Auto) 14 % (0-9) Eosinophils (%) (Auto) 1 % (0-3) Basophils (%) (Auto) 0 % (0-3) Neutrophils # (Auto) 5.5 x10^3/uL (1.8-7.7) Lymphocytes # (Auto) 1.3 x10^3/uL (1.0-4.8) Monocytes # (Auto) 1.1 x10^3/uL (0.0-1.1) Eosinophils # (Auto) 0.1 x10^3/uL (0.0-0.7) Basophils # (Auto) 0.0 x10^3/uL (0.0-0.2) Glucose (Fingerstick) 146 mg/dL (70-99) 158 mg/dL (70-99) Sodium Level 138 mmol/L (136-145) Potassium Level 3.1 mmol/L (3.5-5.1) Chloride Level 95 mmol/L (98-107) Carbon Dioxide Level 36 mmol/L (21-32) Anion Gap 7 (6-14) Blood Urea Nitrogen 33 mg/dL (8-26) Creatinine 1.6 mg/dL (0.7-1.3) Estimated GFR (Cockcroft-Gault) 41.7 BUN/Creatinine Ratio 21 (6-20) Glucose Level 144 mg/dL (70-99) Calcium Level 8.6 mg/dL (8.5-10.1) Total Bilirubin 1.2 mg/dL (0.2-1.0) Aspartate Amino Transf (AST/SGOT) 43 U/L (15-37) Alanine Aminotransferase (ALT/SGPT) 44 U/L (16-63) Alkaline Phosphatase 218 U/L (46-116) Total Protein 7.6 g/dL (6.4-8.2) Albumin 3.0 g/dL (3.4-5.0) Albumin/Globulin Ratio 0.7 (1.0-1.7) Test 02/16/20 05:50 02/16/20 07:04 Sodium Level 141 mmol/L (136-145) Potassium Level 4.0 mmol/L (3.5-5.1) Chloride Level 101 mmol/L (98-107) Carbon Dioxide Level 32 mmol/L (21-32) Anion Gap 8 (6-14) Blood Urea Nitrogen 25 mg/dL (8-26) Creatinine 1.4 mg/dL (0.7-1.3) Estimated GFR (Cockcroft-Gault) 48.6 Glucose Level 116 mg/dL (70-99) Calcium Level 8.7 mg/dL (8.5-10.1) Magnesium Level 1.6 mg/dL (1.8-2.4) Glucose (Fingerstick) 112 mg/dL (70-99) Laboratory Tests Test 02/15/20 11:57 02/15/20 16:31 02/15/20 17:10 02/15/20 21:07 White Blood Count 8.1 x10^3/uL (4.0-11.0) Red Blood Count 4.65 x10^6/uL (4.30-5.70) Hemoglobin 13.4 g/dL (13.0-17.5) Hematocrit 39.2 % (39.0-53.0) Mean Corpuscular Volume 84 fL (79-100) Mean Corpuscular Hemoglobin 29 pg (25-35) Mean Corpuscular Hemoglobin Concent 34 g/dL (31-37) Red Cell Distribution Width 14.9 % (11.5-14.5) Platelet Count 281 x10^3/uL (140-400) Neutrophils (%) (Auto) 69 % (31-73) Lymphocytes (%) (Auto) 16 % (24-48) Monocytes (%) (Auto) 14 % (0-9) Eosinophils (%) (Auto) 1 % (0-3) Basophils (%) (Auto) 0 % (0-3) Neutrophils # (Auto) 5.5 x10^3/uL (1.8-7.7) Lymphocytes # (Auto) 1.3 x10^3/uL (1.0-4.8) Monocytes # (Auto) 1.1 x10^3/uL (0.0-1.1) Eosinophils # (Auto) 0.1 x10^3/uL (0.0-0.7) Basophils # (Auto) 0.0 x10^3/uL (0.0-0.2) Glucose (Fingerstick) 146 mg/dL (70-99) 158 mg/dL (70-99) Sodium Level 138 mmol/L (136-145) Potassium Level 3.1 mmol/L (3.5-5.1) Chloride Level 95 mmol/L (98-107) Carbon Dioxide Level 36 mmol/L (21-32) Anion Gap 7 (6-14) Blood Urea Nitrogen 33 mg/dL (8-26) Creatinine 1.6 mg/dL (0.7-1.3) Estimated GFR (Cockcroft-Gault) 41.7 BUN/Creatinine Ratio 21 (6-20) Glucose Level 144 mg/dL (70-99) Calcium Level 8.6 mg/dL (8.5-10.1) Total Bilirubin 1.2 mg/dL (0.2-1.0) Aspartate Amino Transf (AST/SGOT) 43 U/L (15-37) Alanine Aminotransferase (ALT/SGPT) 44 U/L (16-63) Alkaline Phosphatase 218 U/L (46-116) Total Protein 7.6 g/dL (6.4-8.2) Albumin 3.0 g/dL (3.4-5.0) Albumin/Globulin Ratio 0.7 (1.0-1.7) Test 02/16/20 05:50 02/16/20 07:04 Sodium Level 141 mmol/L (136-145) Potassium Level 4.0 mmol/L (3.5-5.1) Chloride Level 101 mmol/L (98-107) Carbon Dioxide Level 32 mmol/L (21-32) Anion Gap 8 (6-14) Blood Urea Nitrogen 25 mg/dL (8-26) Creatinine 1.4 mg/dL (0.7-1.3) Estimated GFR (Cockcroft-Gault) 48.6 Glucose Level 116 mg/dL (70-99) Calcium Level 8.7 mg/dL (8.5-10.1) Magnesium Level 1.6 mg/dL (1.8-2.4) Glucose (Fingerstick) 112 mg/dL (70-99) Medications Current Medications Acetaminophen/ Hydrocodone Bitart (Lortab 5/325) 1 tab 1X ONCE PO Last adminis tered on 02/15/20at 10:29; Start 02/15/20 at 10:15; Stop 02/15/20 at 10:25; Status DC Sodium Chloride (Normal Saline Flush) 3 ml QSHIFT PRN IV AFTER MEDS AND BLOOD DRAWS; Start 02/15/20 at 11:45 Ondansetron HCl (Zofran) 4 mg PRN Q4HRS PRN IV NAUSEA/VOMITING; Start 02/15/20 at 11:45 Acetaminophen (Tylenol) 650 mg PRN Q4HRS PRN PO TEMP OVER 100.4F OR MILD PAIN Last administered on 02/15/20at 22:07; Start 02/15/20 at 11:45 Al Hydroxide/Mg Hydroxide (Mylanta Plus Xs) 30 ml PRN DAILY PRN PO HEARTBURN / GAS; Start 02/15/20 at 11:45 Clonidine HCl (Catapres) 0.1 mg PRN Q6HRS PRN PO SBP>160 OR DBP>90; Start 02/15/20 at 11:45 Sodium Monofluorophosphate (Fleet Adult) 133 ml PRN DAILY PRN MT CONSTIPATION; Start 02/15/20 at 11:45 Docusate Sodium (Colace) 100 mg PRN BID PRN PO HARD STOOLS; Start 02/15/20 at 11:45 Albuterol/ Ipratropium (Duoneb) 3 ml Q4H NEB Last administered on 02/16/20at 07 :10; Start 02/15/20 at 12:00 Guaifenesin (Robitussin) 200 mg PRN Q4HRS PRN PO COUGH; Start 02/15/20 at 11:45 Lorazepam (Ativan) 0.5 mg PRN Q4HRS PRN PO ANXIETY / AGITATION; Start 02/15/20 at 11:45 Enoxaparin Sodium (Lovenox 40mg Syringe) 40 mg Q24H SQ Last administered on 02/15/20at 12:11; Start 02/15/20 at 11:45 Amlodipine Besylate (Norvasc) 5 mg DAILY PO Last administered on 02/16/20at 08:24; Start 02/16/20 at 09:00 Atorvastatin Calcium (Lipitor) 10 mg HS PO Last administered on 02/15/20at 20:26; Start 02/15/20 at 21:00 Ferrous Sulfate (Feosol) 325 mg DAILYWBKFT PO Last administered on 02/16/20at 08:19; Start 02/16/20 at 09:00 Gabapentin (Neurontin) 100 mg TID PO Last administered on 02/16/20at 08:20; Start 02/15/20 at 21:00 Ipratropium [place] (Atrovent) 0.2 mg QID NEB ; Start 02/15/20 at 17:00; Status UNV Tamsulosin HCl (Flomax) 0.4 mg DAILY PO Last administered on 02/16/20at 08:19; Start 02/16/20 at 09:00 Non-Formulary Medication (Tiotropium [place]ley (Spiriva)) 2 inh DAILY IH ; Start 02/16/20 at 09:00; Status UNV Metformin HCl (Glucophage) 500 mg BIDWMEALS PO ; Start 02/15/20 at 17:00; Stop 02/15/20 at 17:31; Status DC Hydrochlorothiazide (Microzide) 12.5 mg DAILY PO Last administered on 02/16/20at 08:23; Start 02/16/20 at 09:00 Pantoprazole Sodium (Protonix) 40 mg DAILYAC PO Last administered on 02/16/20at 06:15; Start 02/16/20 at 07:30 Potassium Chloride (Klor-Con) 10 meq DAILYWBKFT PO Last administered on 02/16/20at 08:19; Start 02/16/20 at 08:00 Allopurinol (Zyloprim) 100 mg DAILY PO Last administered on 02/16/20at 08:19; Start 02/16/20 at 09:00 Bumetanide (Bumex) 1 mg DAILY PRN PO SEE COMMENTS; Start 02/15/20 at 16:15 Duloxetine HCl (Cymbalta) 30 mg DAILY PO Last administered on 02/16/20at 08:19; Start 02/16/20 at 09:00 Losartan Potassium (Cozaar) 50 mg DAILY PO Last administered on 02/16/20at 08:24; Start 02/16/20 at 09:00 Ascorbic Acid (Vitamin C) 1,000 mg DAILY PO Last administered on 02/16/20at 08:19; Start 02/16/20 at 09:00 Insulin Human Lispro (HumaLOG) 0-5 UNITS TIDWMEALS SQ ; Start 02/15/20 at 17:00 Dextrose (Dextrose 50%-Water Syringe) 12.5 gm PRN Q15MIN PRN IV SEE COMMENTS; Start 02/15/20 at 16:30 Metformin HCl (Glucophage) 1,000 mg BIDWMEALS PO Last administered on 02/16/20at 08:18; Start 02/15/20 at 17:30 Potassium Chloride (Klor-Con) 40 meq 1X ONCE PO Last administered on 02/15/20at 20:26; Start 02/15/20 at 19:30; Stop 02/15/20 at 19:31; Status DC Lidocaine HCl (Xylocaine 1% Pf 30ml Vial) 30 ml 1X ONCE INJ ; Start 02/16/20 at 08:15; Stop 02/16/20 at 08:16; Status DC Methylprednisolone Acetate (DEPO-Medrol 80MG VIAL) 80 mg 1X ONCE INJ ; Start 02/16/20 at 08:15; Stop 02/16/20 at 08:16; Status DC Magnesium Sulfate 50 ml @ 25 mls/hr 1X ONCE IV ; Start 02/16/20 at 10:30; Stop 02/16/20 at 12:29; Status UNV Active Scripts Active Cymbalta (Duloxetine Hcl) 30 Mg Capsule.dr 30 Mg PO DAILY 30 Days Bumetanide 1 Mg Tablet 1 Tab PO DAILY PRN May take 1 tab daily as needed if legs are increasingly getting edematouseven with elevation. significant wt gain of at least 2 pounds in 1day with associated shortness of breath, unable to lay flat witout getting short of breath. And call Dr. West's office. Losartan Potassium 50 Mg Tablet 50 Mg PO DAILY 30 Days Reported Klor-Con 10 (Potassium Chloride) 10 Meq Tablet.er 10 Meq PO DAILY Super B Complex (Vitamin B Complex & Vit C No.4) 150 Mg Tablet 150 Mg PO Centrum Silver Men Tablet (Multivit-Min/FA/Lycopen/Lutein) 1 Each Tablet 1 Each PO Calcium + D3 Er Tablet (Calcium Carb & Cit/Vitamin D3) 1 Each Tablet.er 1 Each PO Vitamin C (Ascorbic Acid) 1,000 Mg Tablet 1,000 Mg PO Coq-10 (Ubidecarenone) 100 Mg Capsule 400 Mg PO Glucosamine (Glucosamine Sulfate 2KCL) 1,000 Mg Tablet 1,000 Mg PO Ferrous Sulfate 325 Mg Tablet 1 Tab PO DAILY Spiriva (Tiotropium Nutley) 18 Mcg Cap.w.dev 2 Inh IH DAILY Ipratropium [place]ley 0.2 Mg/1 Ml Solution 1 Vial NEB QID Gabapentin (Gabapentin) 100 Mg Capsule 100 Mg PO TID Omeprazole 20 Mg Capsule.dr 20 Mg PO DAILY Tamsulosin Hcl 0.4 Mg Cap.er.24h 1 Cap PO DAILY Amlodipine Besylate 5 Mg Tablet 5 Mg PO DAILY Atorvastatin Calcium 10 Mg Tablet 10 Mg PO HS Metformin Hcl 500 Mg Tablet 500 Mg PO BIDWMEALS Allopurinol 100 Mg Tablet 1 Tab PO DAILY Hydrochlorothiazide Tablet (Hydrochlorothiazide) 12.5 Mg Tablet 1 Tab PO DAILY Vitals/I & O Vital Sign - Last 24 Hours 02/15/20 02/15/20 02/15/20 02/15/20 10:29 10:36 11:06 11:29 Pulse 98 94 Resp 20 20 B/P (MAP) 122/74 (90) 122/73 (89) Pulse Ox 94 94 95 94 O2 Delivery Room Air Room Air Room Air Room Air 02/15/20 02/15/20 02/15/20 02/15/20 11:36 12:06 13:30 13:38 Temp 98.7 98.7 Pulse 90 90 80 Resp 19 18 B/P (MAP) 115/72 (86) 106/78 (87) 125/64 (84) Pulse Ox 92 94 94 O2 Delivery Room Air Room Air Room Air Room Air 02/15/20 02/15/20 02/15/20 02/15/20 14:27 16:12 19:00 19:45 Temp 97.8 97.7 97.8 97.7 Pulse 78 97 Resp 18 18 B/P (MAP) 125/54 (77) 131/49 (76) Pulse Ox 92 95 93 O2 Delivery Room Air Room Air Room Air Room Air 02/15/20 02/15/20 02/15/20 02/16/20 19:53 23:00 23:35 03:00 Temp 98.1 97.6 98.1 97.6 Pulse 84 88 Resp 18 18 B/P (MAP) 117/49 (71) 122/44 (70) Pulse Ox 95 93 93 95 O2 Delivery Room Air Room Air Room Air Room Air 02/16/20 02/16/20 02/16/20 02/16/20 07:05 07:11 08:05 08:24 Temp 98.0 98.0 Pulse 69 98 Resp 18 B/P (MAP) 136/75 (95) 131/77 Pulse Ox 92 93 O2 Delivery Room Air Room Air Room Air 02/16/20 08:24 Pulse 98 B/P (MAP) 131/77 Intake and Output 02/15/20 02/15/20 02/16/20 15:00 23:00 07:00 Intake Total 700 ml Output Total 175 ml 675 ml Balance 525 ml -675 ml LISBET VAZQUEZ MD Feb 16, 2020 10:56
[2020-02-16] MEDS: ENOXAPARIN 40 MG/0.4 ML SYRINGE. SQ SCH (12:12)
--- NOTE | 2020-02-16 13:12 | NUR ---
Per order from Dr. Li, removed seth from patients head, patient tolerated procedure well.
[2020-02-16] MEDS: ATORVASTATIN CALCIUM 10 MG TABLET. PO SCH (21:06)
[2020-02-17 03:00] VITALS: BP 105/83
[2020-02-17] MEDS: IPRATRPIUM/ALBUTEROL 0.5/2.5MG 3 ML NEBU. NEB SCH ×3 (04:00→11:20)
[2020-02-17] MEDS: PANTOPRAZOLE 40 MG TABLET.DR. PO SCH (06:39)
[2020-02-17 07:00] VITALS: BP 126/67
[2020-02-17] MEDS: ALLOPURINOL 100 MG TABLET. PO SCH (08:33)
[2020-02-17] MEDS: FERROUS SULFATE 325 MG TABLET. PO SCH (08:33)
[2020-02-17] MEDS: amLODIPine BESYLATE 5 MG TABLET PO SCH (08:33)
[2020-02-17] MEDS: GABAPENTIN 100 MG CAPSULE. PO SCH (08:33)
[2020-02-17] MEDS: LOSARTAN POTASSIUM 50 MG TABLET. PO SCH (08:33)
[2020-02-17] MEDS: POTASSIUM CHLORIDE 10 MEQ TABLET.ER. PO SCH (08:34)
[2020-02-17] MEDS: DULoxetine HCL 30 MG CAPSULE.DR PO SCH (08:34)
[2020-02-17] MEDS: TAMSULOSIN 0.4 MG CAP.ER.24H. PO SCH (08:34)
[2020-02-17] MEDS: ASCORBIC ACID 500 MG TABLET PO SCH (08:34)
[2020-02-17] MEDS: INSULIN LISPRO 300 UNITS/3 ML VIAL. SQ SCH ×2 (08:38→11:47)
--- NOTE | 2020-02-17 09:01 | PDOC ---
PROGRESS NOTES Chief Complaint Chief Complaint A/P: Unable to walk - due to severe osteoarthritis. He is not an appropriate candidate for TKR given his CHF CAREY - vasomotor nephropathy - cr improved from 1.6 to 1.4 Hypokalemia - improved Hypomagnesemia - will replace FALL with intractable knee pain, unable to ambulate Mild medial compartment predominant osteoarthritis of the right knee with chondrocalcinosis and suspected joint loose bodies. morbid obesity GERD - ppi COPD - prn albuterol HTN - amlodipine HYPERLIPIDEMIA - statin Diabetes - given age and renal function would recommend d/c of metformin. controlled withprior A1C at 6.3 Syncope with nontraumatic fall: Vasovagal with associated dehydration. 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 Hepatic steatosis History of Present Illness History of Present Illness Mr Gomes is an 79 yo M w/ PMHx DM2, GERD, HLD, HTN, dCHF, gout, sleep apnea who presents with INTRACTABLE RIGHT KNEE PAIN ON Saturday he was sitting on the toilet and was cleaning himself and holding onto the handlebars on the side collins when he lost his balance and his feed management advisor and fell onto his right knee. He usually walks with a walker and he is unable to bear a lot of weight on that knee. He states KNEE IS very painful. states that she has been having to get him up and around. Unable to stand up or get up out of the wheelchair on his own even with help NOT ABLE TO SAFELY D/C FROM ER TODAY DUE TO FALL RISK K was 3.1, Cr 1.6, Mg 1.6. 02/15: He is still in diffuse joint pain, no SOB or CP. Afebrile. Labs improved. Cr 1.4. Discussed possibility of right knee injection with ortho as well as staple removal from his head wound. Also discussed with his above issues and ambulation issues a motorized wheelchair would be appropriate.\ Overnight no events includes well-controlled 140s. After his right knee injection he was able to walk 100 feet with a today. Physical therapy is recommended he would be okay for home with home health and due to the coronavirus pandemic he and his feels that social isolation associated with going to acute rehabilitation or alf facility would be worse. He does feel significantly better, seth have been removed from his head the site cleaned. He has outpatient follow-up tomorrow He resides at home with his , which they are currently updating for handicapped accessibility due to the increasing frequency of his falls and severity of his osteoarthritis which is making him nearly non-ambulatory. This is complicated by his CHF which is NYHA III/IV. He is becoming dependent upon his caregivers for 30-40% of his ADLs and MRADLs. His home is fully wheelchair accessible. He cannot safely use a cane or a walker with the frequency of his falls. He is able to self-propel a manual wheelchair very short distances, and is dependent upon other in all areas of transfers, weight shifts, self care, and activities of daily living. A motorized wheelchair will provide him with optimal positioning and safety at home, during transportation, as well as in the community. He will be using the chair for approximately 4-6 hours per day. The chair will be used for positioning at home to allow for increased participation and safety during daily activities. In addition, the chair will be used to attend all necessary medical appointments. Vitals Vitals Vital Signs Date Time Temp Pulse Resp B/P (MAP) Pulse Ox O2 Delivery O2 Flow Rate FiO2 02/17/20 08:33 87 126/67 02/17/20 07:22 Room Air 02/17/20 07:00 97.7 18 94 97.7 Physical Exam General: Alert, Oriented X3 Heart: Regular rate Lungs: Clear Abdomen: Soft, No tenderness Extremities: No edema, Normal pulses Skin: No rashes Labs LABS Laboratory Tests Test 02/16/20 11:13 02/16/20 16:31 02/16/20 20:55 02/16/20 20:58 Glucose (Fingerstick) 114 mg/dL (70-99) 200 mg/dL (70-99) 206 mg/dL (70-99) 194 mg/dL (70-99) Test 02/17/20 07:02 Glucose (Fingerstick) 154 mg/dL (70-99) Assessment and Plan Assessmemt and Plan Problems Medical Problems: (1) Knee pain, right Status: Acute (2) Unable to ambulate Status: Acute Comment Review of Relevant I have reviewed the following items paula (where applicable) has been applied. Labs Laboratory Tests Test 02/15/20 11:57 02/15/20 16:31 02/15/20 17:10 02/15/20 21:07 White Blood Count 8.1 x10^3/uL (4.0-11.0) Red Blood Count 4.65 x10^6/uL (4.30-5.70) Hemoglobin 13.4 g/dL (13.0-17.5) Hematocrit 39.2 % (39.0-53.0) Mean Corpuscular Volume 84 fL (79-100) Mean Corpuscular Hemoglobin 29 pg (25-35) Mean Corpuscular Hemoglobin Concent 34 g/dL (31-37) Red Cell Distribution Width 14.9 % (11.5-14.5) Platelet Count 281 x10^3/uL (140-400) Neutrophils (%) (Auto) 69 % (31-73) Lymphocytes (%) (Auto) 16 % (24-48) Monocytes (%) (Auto) 14 % (0-9) Eosinophils (%) (Auto) 1 % (0-3) Basophils (%) (Auto) 0 % (0-3) Neutrophils # (Auto) 5.5 x10^3/uL (1.8-7.7) Lymphocytes # (Auto) 1.3 x10^3/uL (1.0-4.8) Monocytes # (Auto) 1.1 x10^3/uL (0.0-1.1) Eosinophils # (Auto) 0.1 x10^3/uL (0.0-0.7) Basophils # (Auto) 0.0 x10^3/uL (0.0-0.2) Glucose (Fingerstick) 146 mg/dL (70-99) 158 mg/dL (70-99) Sodium Level 138 mmol/L (136-145) Potassium Level 3.1 mmol/L (3.5-5.1) Chloride Level 95 mmol/L (98-107) Carbon Dioxide Level 36 mmol/L (21-32) Anion Gap 7 (6-14) Blood Urea Nitrogen 33 mg/dL (8-26) Creatinine 1.6 mg/dL (0.7-1.3) Estimated GFR (Cockcroft-Gault) 41.7 BUN/Creatinine Ratio 21 (6-20) Glucose Level 144 mg/dL (70-99) Calcium Level 8.6 mg/dL (8.5-10.1) Total Bilirubin 1.2 mg/dL (0.2-1.0) Aspartate Amino Transf (AST/SGOT) 43 U/L (15-37) Alanine Aminotransferase (ALT/SGPT) 44 U/L (16-63) Alkaline Phosphatase 218 U/L (46-116) Total Protein 7.6 g/dL (6.4-8.2) Albumin 3.0 g/dL (3.4-5.0) Albumin/Globulin Ratio 0.7 (1.0-1.7) Test 02/16/20 05:50 02/16/20 07:04 02/16/20 11:13 02/16/20 16:31 Sodium Level 141 mmol/L (136-145) Potassium Level 4.0 mmol/L (3.5-5.1) Chloride Level 101 mmol/L (98-107) Carbon Dioxide Level 32 mmol/L (21-32) Anion Gap 8 (6-14) Blood Urea Nitrogen 25 mg/dL (8-26) Creatinine 1.4 mg/dL (0.7-1.3) Estimated GFR (Cockcroft-Gault) 48.6 Glucose Level 116 mg/dL (70-99) Calcium Level 8.7 mg/dL (8.5-10.1) Magnesium Level 1.6 mg/dL (1.8-2.4) Glucose (Fingerstick) 112 mg/dL (70-99) 114 mg/dL (70-99) 200 mg/dL (70-99) Test 02/16/20 20:55 02/16/20 20:58 02/17/20 07:02 Glucose (Fingerstick) 206 mg/dL (70-99) 194 mg/dL (70-99) 154 mg/dL (70-99) Laboratory Tests Test 02/16/20 11:13 02/16/20 16:31 02/16/20 20:55 02/16/20 20:58 Glucose (Fingerstick) 114 mg/dL (70-99) 200 mg/dL (70-99) 206 mg/dL (70-99) 194 mg/dL (70-99) Test 02/17/20 07:02 Glucose (Fingerstick) 154 mg/dL (70-99) Medications Current Medications Acetaminophen/ Hydrocodone Bitart (Lortab 5/325) 1 tab 1X ONCE PO Last administered on 02/15/20at 10:29; Start 02/15/20 at 10:15; Stop 02/15/20 at 10:25; Status DC Sodium Chloride (Normal Saline Flush) 3 ml QSHIFT PRN IV AFTER MEDS AND BLOOD DRAWS; Start 02/15/20 at 11:45 Ondansetron HCl (Zofran) 4 mg PRN Q4HRS PRN IV NAUSEA/VOMITING; Start 02/15/20 at 11:45 Acetaminophen (Tylenol) 650 mg PRN Q4HRS PRN PO TEMP OVER 100.4F OR MILD PAIN Last administered on 02/15/20at 22:07; Start 02/15/20 at 11:45 Al Hydroxide/Mg Hydroxide (Mylanta Plus Xs) 30 ml PRN DAILY PRN PO HEARTBURN / GAS; Start 02/15/20 at 11:45 Clonidine HCl (Catapres) 0.1 mg PRN Q6HRS PRN PO SBP>160 OR DBP>90; Start 02/15/20 at 11:45 Sodium Monofluorophosphate (Fleet Adult) 133 ml PRN DAILY PRN [place] CONSTIPATION; Start 02/15/20 at 11:45 Docusate Sodium (Colace) 100 mg PRN BID PRN PO HARD STOOLS; Start 02/15/20 at 11:45 Albuterol/ Ipratropium (Duoneb) 3 ml Q4H NEB Last administered on 02/17/20at 07:22; Start 02/15/20 at 12:00 Guaifenesin (Robitussin) 200 mg PRN Q4HRS PRN PO COUGH; Start 02/15/20 at 11:45 Lorazepam (Ativan) 0.5 mg PRN Q4HRS PRN PO ANXIETY / AGITATION; Start 02/15/20 at 11:45 Enoxaparin Sodium (Lovenox 40mg Syringe) 40 mg Q24H SQ Last administered on 02/16/20at 12:12; Start 02/15/20 at 11:45 Amlodipine Besylate (Norvasc) 5 mg DAILY PO Last administered on 02/17/20at 08:33; Start 02/16/20 at 09:00 Atorvastatin Calcium (Lipitor) 10 mg HS PO Last administered on 02/16/20at 21:06; Start 02/15/20 at 21:00 Ferrous Sulfate (Feosol) 325 mg DAILYWBKFT PO Last administered on 02/17/20at 08:33; Start 02/16/20 at 09:00 Gabapentin (Neurontin) 100 mg TID PO Last administered on 02/17/20at 08:33; Start 02/15/20 at 21:00 Ipratropium [place] (Atrovent) 0.2 mg QID NEB ; Start 02/15/20 at 17:00; Status UNV Tamsulosin HCl (Flomax) 0.4 mg DAILY PO Last administered on 02/17/20at 08:34; Start 02/16/20 at 09:00 Non-Formulary Medication (Tiotropium [place] (Spiriva)) 2 inh DAILY IH ; Start 02/16/20 at 09:00; Status UNV Metformin HCl (Glucophage) 500 mg BIDWMEALS PO ; Start 02/15/20 at 17:00; Stop 02/15/20 at 17:31; Status DC Hydrochlorothiazide (Microzide) 12.5 mg DAILY PO Last administered on 02/16/20at 08:23; Start 02/16/20 at 09:00; Stop 02/16/20 at 11:55; Status DC Pantoprazole Sodium (Protonix) 40 mg DAILYAC PO Last administered on 02/17/20at 06:39; Start 02/16/20 at 07:30 Potassium Chloride (Klor-Con) 10 meq DAILYWBKFT PO Last administered on 02/17/20at 08:34; Start 02/16/20 at 08:00 Allopurinol (Zyloprim) 100 mg DAILY PO Last administered on 02/17/20at 08:33; Start 02/16/20 at 09:00 Bumetanide (Bumex) 1 mg DAILY PRN PO SEE COMMENTS; Start 02/15/20 at 16:15 Duloxetine HCl (Cymbalta) 30 mg DAILY PO Last administered on 02/17/20at 08:34; Start 02/16/20 at 09:00 Losartan Potassium (Cozaar) 50 mg DAILY PO Last administered on 02/17/20at 08:33; Start 02/16/20 at 09:00 Ascorbic Acid (Vitamin C) 1,000 mg DAILY PO Last administered on 02/17/20at 08:34; Start 02/16/20 at 09:00 Insulin Human Lispro (HumaLOG) 0-5 UNITS TIDWMEALS SQ Last administered on 02/17/20at 08:38; Start 02/15/20 at 17:00 Dextrose (Dextrose 50%-Water Syringe) 12.5 gm PRN Q15MIN PRN IV SEE COMMENTS; Start 02/15/20 at 16:30 Metformin HCl (Glucophage) 1,000 mg BIDWMEALS PO Last administered on 02/16/20at 08:18; Start 02/15/20 at 17:30; Stop 02/16/20 at 11:55; Status DC Potassium Chloride (Klor-Con) 40 meq 1X ONCE PO Last administered on 02/15/20at 20:26; Start 02/15/20 at 19:30; Stop 02/15/20 at 19:31; Status DC Lidocaine HCl (Xylocaine 1% Pf 30ml Vial) 30 ml 1X ONCE INJ ; Start 02/16/20 at 08:15; Stop 02/16/20 at 08:16; Status DC Methylprednisolone Acetate (DEPO-Medrol 80MG VIAL) 80 mg 1X ONCE INJ ; Start 02/16/20 at 08:15; Stop 02/16/20 at 08:16; Status DC Magnesium Sulfate 50 ml @ 25 mls/hr 1X ONCE IV Last administered on 02/16/20at 12:10; Start 02/16/20 at 11:00; Stop 02/16/20 at 12:59; Status DC Active Scripts Active Cymbalta (Duloxetine Hcl) 30 Mg Capsule.dr 30 Mg PO DAILY 30 Days Bumetanide 1 Mg Tablet 1 Tab PO DAILY PRN May take 1 tab daily as needed if legs are increasingly getting edematouseven with elevation. significant wt gain of at least 2 pounds in 1day with associated shortness of breath, unable to lay flat witout getting short of breath. And call Dr. West's office. Losartan Potassium 50 Mg Tablet 50 Mg PO DAILY 30 Days Reported Klor-Con 10 (Potassium Chloride) 10 Meq Tablet.er 10 Meq PO DAILY Super B Complex (Vitamin B Complex & Vit C No.4) 150 Mg Tablet 150 Mg PO Centrum Silver Men Tablet (Multivit-Min/FA/Lycopen/Lutein) 1 Each Tablet 1 Each PO Calcium + D3 Er Tablet (Calcium Carb & Cit/Vitamin D3) 1 Each Tablet.er 1 Each PO Vitamin C (Ascorbic Acid) 1,000 Mg Tablet 1,000 Mg PO Coq-10 (Ubidecarenone) 100 Mg Capsule 400 Mg PO Glucosamine (Glucosamine Sulfate 2KCL) 1,000 Mg Tablet 1,000 Mg PO Ferrous Sulfate 325 Mg Tablet 1 Tab PO DAILY Spiriva (Tiotropium [place]) 18 Mcg Cap.w.dev 2 Inh IH DAILY Ipratropium [place] 0.2 Mg/1 Ml Solution 1 Vial NEB QID Gabapentin (Gabapentin) 100 Mg Capsule 100 Mg PO TID Omeprazole 20 Mg Capsule.dr 20 Mg PO DAILY Tamsulosin Hcl 0.4 Mg Cap.er.24h 1 Cap PO DAILY Amlodipine Besylate 5 Mg Tablet 5 Mg PO DAILY Atorvastatin Calcium 10 Mg Tablet 10 Mg PO HS Metformin Hcl 500 Mg Tablet 500 Mg PO BIDWMEALS Allopurinol 100 Mg Tablet 1 Tab PO DAILY Hydrochlorothiazide Tablet (Hydrochlorothiazide) 12.5 Mg Tablet 1 Tab PO DAILY Vitals/I & O Vital Sign - Last 24 Hours 02/16/20 02/16/20 02/16/20 02/16/20 10:40 11:09 14:54 15:06 Temp 97.7 97.5 97.7 97.5 Pulse 90 94 97 Resp 18 17 B/P (MAP) 129/64 (85) 99/36 (57) 104/42 (62) Pulse Ox 94 93 O2 Delivery Room Air Room Air Room Air 02/16/20 02/16/20 02/16/20 02/16/20 15:41 19:00 19:51 20:00 Temp 97.8 97.8 Pulse 98 Resp 18 B/P (MAP) 112/51 (71) Pulse Ox 93 100 O2 Delivery Room Air Room Air Room Air Room Air 02/16/20 02/16/20 02/17/20 02/17/20 23:00 23:45 03:00 07:00 Temp 98.6 98.1 97.7 98.6 98.1 97.7 Pulse 85 83 87 Resp 18 18 18 B/P (MAP) 107/55 (72) 105/83 (90) 126/67 (86) Pulse Ox 92 91 94 O2 Delivery Room Air Room Air Room Air Room Air 02/17/20 02/17/20 02/17/20 07:22 08:33 08:33 Pulse 87 87 B/P (MAP) 126/67 126/67 O2 Delivery Room Air Intake and Output 02/16/20 02/16/20 02/17/20 15:00 23:00 07:00 Intake Total 440 ml 840 ml 180 ml Output Total 200 ml Balance 440 ml 840 ml -20 ml LISBET VAZQUEZ MD Feb 17, 2020 09:01
[2020-02-17 11:06] VITALS: BP 101/50
--- NOTE | 2020-02-17 11:39 | NUR ---
SW following. Discussed with RN, PT recommending SNU but possibly changing to home health. OT recommending home health. SW met with pt and pt's at bedside (no isolation precautions at the time). Pt reported he had been to [facility] last month and would like to go back there again, otherwise pt has [facility] at home and would like to resume with them. LEONOR spoke with PT, Marla - she may be changing pt's recommendation to home health after she sees pt now. Pt will need a COVID-19 test in order to go to SNU - notified RN. Awaiting confirmation from PT before continuing with SNU planning. LEONOR verified with [facility] pt was there 12/04/2019-12/29/2019 - facesheet faxed - they are checking pt's SNU days. LEONOR will continue to follow.
[2020-02-17] MEDS: ENOXAPARIN 40 MG/0.4 ML SYRINGE. SQ SCH (12:18)
[2020-02-17 14:13] VITALS: BP 123/53
--- NOTE | 2020-02-17 14:26 | PDOC3 ---
Discharge Summary Visit Information Date of Admission: Feb 15, 2020 Date of Discharge: Feb 17, 2020 Admitting Diagnosis: Right knee pain Final Diagnosis Problems Medical Problems: (1) Knee pain, right Status: Acute (2) Unable to ambulate Status: Acute Brief Hospital Course Allergies Allergies Coded Allergies Type Severity Reaction Last Updated Verified No Known Drug Allergies 08/08/17 No Vital Signs Vital Signs Date Time Temp Pulse Resp B/P (MAP) Pulse Ox O2 Delivery O2 Flow Rate FiO2 02/17/20 14:13 97.9 64 18 123/53 (76) 95 Room Air 97.9 Lab Results Laboratory Tests Test 02/15/20 16:31 02/15/20 17:10 02/15/20 21:07 02/16/20 05:50 Glucose (Fingerstick) 146 mg/dL (70-99) 158 mg/dL (70-99) Sodium Level 138 mmol/L (136-145) 141 mmol/L (136-145) Potassium Level 3.1 mmol/L (3.5-5.1) 4.0 mmol/L (3.5-5.1) Chloride Level 95 mmol/L (98-107) 101 mmol/L (98-107) Carbon Dioxide Level 36 mmol/L (21-32) 32 mmol/L (21-32) Anion Gap 7 (6-14) 8 (6-14) Blood Urea Nitrogen 33 mg/dL (8-26) 25 mg/dL (8-26) Creatinine 1.6 mg/dL (0.7-1.3) 1.4 mg/dL (0.7-1.3) Estimated GFR (Cockcroft-Gault) 41.7 48.6 BUN/Creatinine Ratio 21 (6-20) Glucose Level 144 mg/dL (70-99) 116 mg/dL (70-99) Calcium Level 8.6 mg/dL (8.5-10.1) 8.7 mg/dL (8.5-10.1) Total Bilirubin 1.2 mg/dL (0.2-1.0) Aspartate Amino Transf (AST/SGOT) 43 U/L (15-37) Alanine Aminotransferase (ALT/SGPT) 44 U/L (16-63) Alkaline Phosphatase 218 U/L (46-116) Total Protein 7.6 g/dL (6.4-8.2) Albumin 3.0 g/dL (3.4-5.0) Albumin/Globulin Ratio 0.7 (1.0-1.7) Magnesium Level 1.6 mg/dL (1.8-2.4) Test 02/16/20 07:04 02/16/20 11:13 02/16/20 16:31 02/16/20 20:55 Glucose (Fingerstick) 112 mg/dL (70-99) 114 mg/dL (70-99) 200 mg/dL (70-99) 206 mg/dL (70-99) Test 02/16/20 20:58 02/17/20 07:02 02/17/20 11:01 Glucose (Fingerstick) 194 mg/dL (70-99) 154 mg/dL (70-99) 145 mg/dL (70-99) Laboratory Tests Test 02/16/20 16:31 02/16/20 20:55 02/16/20 20:58 02/17/20 07:02 Glucose (Fingerstick) 200 mg/dL (70-99) 206 mg/dL (70-99) 194 mg/dL (70-99) 154 mg/dL (70-99) Test 02/17/20 11:01 Glucose (Fingerstick) 145 mg/dL (70-99) Brief Hospital Course Mr Gomes is an 79 yo M w/ PMHx DM2, GERD, HLD, HTN, dCHF, gout, sleep apnea who presents with INTRACTABLE RIGHT KNEE PAIN ON Saturday he was sitting on the toilet and was cleaning himself and holding onto the handlebars on the side collins when he lost his balance and his property utilization manager and fell onto his right knee. He usually walks with a walker and he is unable to bear a lot of weight on that knee. He states KNEE IS very painful. states that she has been having to get him up and around. Unable to stand up or get up out of the wheelchair on his own even with help NOT ABLE TO SAFELY D/C FROM ER TODAY DUE TO FALL RISK K was 3.1, Cr 1.6, Mg 1.6. 02/15: He is still in diffuse joint pain, no SOB or CP. Afebrile. Labs improved. Cr 1.4. Discussed possibility of right knee injection with ortho as well as staple removal from his head wound. Also discussed with his above issues and ambulation issues a motorized wheelchair would be appropriate.\ Overnight no events includes well-controlled 140s. After his right knee injection he was able to walk 100 feet with a today. Physical therapy is recommended he would be okay for home with home health and due to the cor onavirus pandemic he and his feels that social isolation associated with going to acute rehabilitation or [place] [facility] facility would be worse. He does feel significantly better, seth have been removed from his head the site cleaned. He has outpatient follow-up tomorrow [He resides at home with his , which they are currently updating for handicapped accessibility due to the increasing frequency of his falls and severity of his osteoarthritis which is making him nearly non-ambulatory. This is complicated by his CHF which is NYHA III/IV. He is becoming dependent upon his caregivers for 30-40% of his ADLs and MRADLs. His home is fully wheelchair accessible. He cannot safely use a cane or a walker with the frequency of his falls. He is able to self-propel a manual wheelchair very short distances, and is dependent upon other in all areas of transfers, weight shifts, self care, and activities of daily living. A motorized wheelchair will provide him with optimal positioning and safety at home, during transportation, as well as in the community. He will be using the chair for approximately 4-6 hours per day. The chair will be used for positioning at home to allow for increased participation and safety during daily activities. In addition, the chair will be used to attend all necessary medical appointments.] Consults: Ortho Problem list: Right knee pain - initially Unable to walk - due to severe osteoarthritis. He is not an appropriate candidate for TKR given his CHF CAREY - vasomotor nephropathy - cr improved from 1.6 to 1.4 Hypokalemia - improved Hypomagnesemia - will replace FALL with intractable knee pain, unable to ambulate, injection improved Mild medial compartment predominant osteoarthritis of the right knee with chondrocalcinosis and suspected joint loose bodies. morbid obesity GERD - ppi COPD - prn albuterol HTN - amlodipine HYPERLIPIDEMIA - statin Diabetes - given age and renal function would recommend d/c of metformin. controlled withprior A1C at 6.3 Syncope with nontraumatic fall: Vasovagal with associated dehydration. 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 Hepatic steatosis Greater than 30 minutes spent on discharge home with home health Discharge Information Condition at Discharge: Improved Follow Up: Weeks (1) Disposition/Orders: D/C to Home w/ HH Scheduled Allopurinol (Allopurinol) 100 Mg Tablet, 1 TAB PO DAILY, #90 Ref 3 (Reported) Entered as Reported by: GAGE MORRIS on 05/30/181157 Last Action: Continued on 02/15/201618 by ZAC DUARTE Amlodipine Besylate (Amlodipine Besylate) 5 Mg Tablet, 5 MG PO DAILY, (Reported) Entered as Reported by: GAGE MORRIS on 05/30/181157 Last Action: Continued on 02/15/201618 by ZAC DUARTE Atorvastatin Calcium (Atorvastatin Calcium) 10 Mg Tablet, 10 MG PO HS for FOR CHOLESTEROL, #30 Ref 0 (Reported) Entered as Reported by: GAGE MORRIS on 05/30/181157 Last Action: Continued on 02/15/201618 by ZAC DUARTE Duloxetine Hcl (Cymbalta) 30 Mg Capsule.dr, 30 MG PO DAILY for depression for 30 Days, #30 Prescribed by: KANE ROCHE MD on 12/04/19 0844 Last Action: Continued on 02/15/201618 by ZAC DUARTE Ferrous Sulfate (Ferrous Sulfate) 325 Mg Tablet, 1 TAB PO DAILY, #30 Ref 3 (Reported) Entered as Reported by: GAGE MORRIS on 05/30/181157 Last Action: Continued on 02/15/201618 by ZAC DUARTE Gabapentin (Gabapentin ) 100 Mg Capsule, 100 MG PO TID, (Reported) Entered as Reported by: GAGE MORRIS on 05/30/181157 Last Action: Continued on 02/15/201618 by ZAC DUARTE Hydrochlorothiazide (Hydrochlorothiazide Tablet) 12.5 Mg Tablet, 1 TAB PO DAILY, #30 Ref 5 (Reported) Entered as Reported by: GAGE MORRIS on 05/30/181157 Last Action: Converted on 02/15/201618 by ZAC DUARTE Ipratropium [place] (Ipratropium [place]) 0.2 Mg/1 Ml Solution, 1 VIAL NEB QID, #300 Ref 5 (Reported) Entered as Reported by: GAGE MORRIS on 05/30/181157 Last Action: Continued on 02/15/201618 by ZAC DUARTE Losartan Potassium (Losartan Potassium) 50 Mg Tablet, 50 MG PO DAILY for HYPERTENSION for 30 Days, #30 Prescribed by: KANE ROCHE MD on 12/03/19 1429 Last Action: Continued on 02/15/201618 by ZAC DUARTE Metformin Hcl (Metformin Hcl) 500 Mg Tablet, 500 MG PO BIDWMEALS for ANTI- DIABETIC, Ref 0 (Reported) Entered as Reported by: GAGE MORRIS on 05/30/181157 Last Action: Continued on 02/15/201618 by ZAC DUARTE Omeprazole (Omeprazole) 20 Mg Capsule.dr, 20 MG PO DAILY, (Reported) Entered as Reported by: GAGE MORRIS on 05/30/181157 Last Action: Converted on 02/15/201618 by ZAC DUARTE Potassium Chloride (Klor-Con 10) 10 Meq Tablet.er, 10 MEQ PO DAILY for Cardiac, (Reported) Entered as Reported by: AFRICA HARRIS RN on 12/02/191956 Last Action: Converted on 02/15/201618 by ZAC DUARTE Tamsulosin Hcl (Tamsulosin Hcl) 0.4 Mg Cap.er.24h, 1 CAP PO DAILY, #90 Ref 3 (Reported) Entered as Reported by: GAGE MORRIS on 05/30/181157 Last Action: Continued on 02/15/201618 by ZAC DUARTE Tiotropium [place] (Spiriva) 18 Mcg Cap.w.dev, 2 INH IH DAILY, #1 Ref 0 (Reported) Entered as Reported by: GAGE MORRIS on 05/30/181157 Last Action: Converted on 02/15/201618 by ZAC DUARTE Scheduled PRN Bumetanide (Bumetanide) 1 Mg Tablet, 1 TAB PO DAILY PRN for SEE COMMENTS, #90 Ref 3 May take 1 tab daily as needed if legs are increasingly getting edematouseven with elevation. significant wt gain of at least 2 pounds in 1day with associated shortness of breath, unable to lay flat witout getting short of breath. And call Dr. West's office. Prescribed by: CHRIS KNOX APRN on 12/03/19 1533 Last Action: Continued on 02/15/20 161 by ZAC DUARTE Miscellaneous Medications Ascorbic Acid (Vitamin C) 1,000 Mg Tablet, 1,000 MG PO, (Reported) Entered as Reported by: GAGE MORRIS on 05/30/181157 Last Action: Converted on 02/15/20 161 by ZAC DUARTE Calcium Carb & Cit/Vitamin D3 (Calcium + D3 Er Tablet) 1 Each Tablet.er, 1 EACH PO, (Reported) Entered as Reported by: GAGE MORRIS on 05/30/181157 Glucosamine Sulfate 2KCL (Glucosamine) 1,000 Mg Tablet, 1,000 MG PO, (Reported) Entered as Reported by: GAGE MORRIS on 05/30/181157 Multivit-Min/FA/Lycopen/Lutein (Centrum Silver Men Tablet) 1 Each Tablet, 1 EACH PO, (Reported) Entered as Reported by: GAGE MORRIS on 05/30/181157 Ubidecarenone (Coq-10) 100 Mg Capsule, 400 MG PO, (Reported) Entered as Reported by: GAGE MORRIS on 05/30/181157 Vitamin B Complex & Vit C No.4 (Super B Complex) 150 Mg Tablet, 150 MG PO, (Reported) Entered as Reported by: GAGE MORRIS on 05/30/181157 Justicifation of Admission Dx: Justifications for Admission: Justification of Admission Dx: Yes LISBET VAZQUEZ MD Feb 17, 2020 14:26
[2020-02-17] MEDS ORDERED: DICL100G54 TP (14:28)
--- NOTE | 2020-02-17 14:30 | SNU/HH DC ---
DISCHARGE WITH HOME HEALTH DISCHARGE INFORMATION: Discharge Date: Feb 17, 2020 Final Diagnosis: Problems Medical Problems: (1) Knee pain, right Status: Acute (2) Unable to ambulate Status: Acute Condition on Discharge: Stable CODE STATUS: Code Status: Full HOME HEALTH: Face to Face: I certify this patient is under my care and that I, or a nurse practitioner or physician's surgeon's assistant working with me, had a face to face encounter that meets the physician face to face encounter requirements with this patient on 02/17/2020. Medical Complications: CHF, DJD, DM, Falls, HTN Residential For: Assess Cardiopulm Status, Assess/Skilled Observatio, Diabetic Care, Medication Management, Pain Management RN For Eval/Treatment: Yes Physical Therapy For: Evalulation/Treatment Occupational Therapy For: Evaluation/Treatment PRODUCTION SUPPORT CONSULTANT For: Community Resources Pt Meets Homebound Status: Unsteady balance w/ amb,, Fatigue w/ amb., Limited distance walking POST DISCHARGE ORDERS: Activity Instructions for Disc: Activity as tolerated, Bedrest today Weight Bearing Status after Di: As tolerated DIET AFTER DISCHARGE: Cardiac Wound/Incision Care: Ice to area for comfort, Keep wound/cast CDI CHECKS AFTER DISCHARGE: Checks after discharge: Check blood press - daily, Check blood sugar, ac/hs, Check your Temp as needed, Weigh Yourself Daily FOLLOW-UP: Additional Instructions: Voltaren gel to right knee QID prn pain for OA TREATMENT/EQUIPMENT ORDERS: Adaptive Equipment Issued: None CERTIFICATION STATEMENT: Certification Statement: Certification Statement: Based on the above finding, I certify that this patient is confined to the home and needs intermittent long-term care, physical therapy and/or speech therapy, or continues to need occupational therapy.~ This patient is under my care, and I have initiated the establishment of the plan of care.~ This patient will be followed by myself or a community physician who will periodically review the plan of care. Home Meds Active Scripts Diclofenac Sodium (VOLTAREN) 100 Gm Gel..gram., 1 GM TP QID for pain for 30 Days, #100 GM 5 Refills apply to affected area(s) Prov:LISBET VAZQUEZ MD 02/17/20 Duloxetine Hcl (CYMBALTA) 30 Mg Capsule., 30 MG PO DAILY for depression for 30 Days, #30 CAP Prov:KANE ROCHE MD 12/04/19 Bumetanide (BUMETANIDE) 1 Mg Tablet, 1 TAB PO DAILY PRN for SEE COMMENTS, #90 TAB 3 Refills May take 1 tab daily as needed if legs are increasingly getting edematouseven with elevation. significant wt gain of at least 2 pounds in 1day with associated shortness of breath, unable to lay flat witout getting short of breath. And call Dr. West's office. Prov:CHRIS KNOX APRN 12/03/19 Losartan Potassium (LOSARTAN POTASSIUM) 50 Mg Tablet, 50 MG PO DAILY for HYPERTENSION for 30 Days, #30 TAB Prov:KANE ROCHE MD 12/03/19 Reported Medications Potassium Chloride (Klor-Con 10) 10 Meq Tablet.er, 10 MEQ PO DAILY for Cardiac, TAB.SR 12/02/19 Vitamin B Complex & Vit C No.4 (SUPER B COMPLEX) 150 Mg Tablet, 150 MG PO, TAB 05/30/18 Multivit-Min/FA/Lycopen/Lutein (Centrum Silver Men Tablet) 1 Each Tablet, 1 EACH PO, TAB 05/30/18 Calcium Carb & Cit/Vitamin D3 (CALCIUM + D3 ER TABLET) 1 Each Tablet.er, 1 EACH PO, TAB.SR 05/30/18 Ascorbic Acid (VITAMIN C) 1,000 Mg Tablet, 1000 MG PO, TAB 05/30/18 Ubidecarenone (COQ-10) 100 Mg Capsule, 400 MG PO, CAP 05/30/18 Glucosamine Sulfate 2KCL (GLUCOSAMINE) 1,000 Mg Tablet, 1000 MG PO, TAB 05/30/18 Ferrous Sulfate (FERROUS SULFATE) 325 Mg Tablet, 1 TAB PO DAILY, #30 TAB 3 Refills 05/30/18 Tiotropium [place] (SPIRIVA) 18 Mcg Cap.w.dev, 2 INH IH DAILY, #1 INH 0 Refills 05/30/18 Ipratropium [place] (IPRATROPIUM BROMIDE) 0.2 Mg/1 Ml Solution, 1 VIAL NEB QID, #300 ML 5 Refills 05/30/18 Gabapentin (GABAPENTIN ) 100 Mg Capsule, 100 MG PO TID, CAP 05/30/18 Omeprazole (OMEPRAZOLE) 20 Mg Capsule.dr, 20 MG PO DAILY, CAP 05/30/18 Tamsulosin Hcl (TAMSULOSIN HCL) 0.4 Mg Cap.er.24h, 1 CAP PO DAILY, #90 CAP 3 Refills 05/30/18 Amlodipine Besylate (AMLODIPINE BESYLATE) 5 Mg Tablet, 5 MG PO DAILY, TAB 05/30/18 Atorvastatin Calcium (ATORVASTATIN CALCIUM) 10 Mg Tablet, 10 MG PO HS for FOR CHOLESTEROL, #30 TAB 0 Refills 05/30/18 Metformin Hcl (METFORMIN HCL) 500 Mg Tablet, 500 MG PO BIDWMEALS for ANTI- DIABETIC, TAB 0 Refills 05/30/18 Allopurinol (ALLOPURINOL) 100 Mg Tablet, 1 TAB PO DAILY, #90 TAB 3 Refills 05/30/18 Discontinued Reported Medications Hydrochlorothiazide (HYDROCHLOROTHIAZIDE TABLET) 12.5 Mg Tablet, 1 TAB PO DAILY, #30 TAB 5 Refills 05/30/18 LISBET VAZQUEZ MD Feb 17, 2020 14:30
--- NOTE | 2020-02-17 14:56 | NUR ---
Pt. discharged to home with Rx, verbalized understanding of discharge instructions
== END 2020-02-17 14:50 | disposition home health service (06) | DRG 553 ==
LOC: ER 09:34 → 4 NORTH 11:20
PROVIDERS: ADMIT Family Medicine; ATTEND Family Medicine
DX: M17.11 Unilateral primary osteoarthritis, right knee (principal); N17.0 Acute kidney failure with tubular necrosis; I50.32 Chronic diastolic (congestive) heart failure; E87.6 Hypokalemia; E11.9 Type 2 diabetes mellitus without complications; E66.01 Morbid (severe) obesity due to excess calories; E78.00 Pure hypercholesterolemia, unspecified; E78.5 Hyperlipidemia, unspecified; E83.42 Hypomagnesemia; E86.0 Dehydration; G47.33 Obstructive sleep apnea (adult) (pediatric); I11.0 Hypertensive heart disease with heart failure; I45.10 Unspecified right bundle-branch block; J44.9 Chronic obstructive pulmonary disease, unspecified; K21.9 Gastro-esophageal reflux disease without esophagitis; K76.0 Fatty (change of) liver, not elsewhere classified; M11.20 Other chondrocalcinosis, unspecified site; W01.0XXA Fall on same level from slipping, tripping and stumbling without subsequent striking against object, initial encounter; Z91.81 History of falling; F32.9 Major depressive disorder, single episode, unspecified; M10.9 Gout, unspecified; G62.9 Polyneuropathy, unspecified; Z68.35 Body mass index [BMI] 35.0-35.9, adult
CPT/HCPCS: 36415; 73562; 80048; 80053; 82962; 83735; 85025; 94640; 94660; 94760; 96372; 99285; J1040; J1650; J1815; J3475; J3490; 97110-GP; 97116-GP; 97535-GO; G0378

== ENCOUNTER → 2020-05-17 | Outpatient (CLI) | payer MEDICARE, OTHER ==
[~2020-05-17] MED LIST changes: +ASCO100019 PO; -ASCO10002 PO; +DICL100G54 TP
--- NOTE | 2020-05-17 12:59 | RAD ---
Clinical Indications: Diabetic vasculopathy. Exam : Carotid Duplex with Grayscale Ultrasound and Spectral and Color Doppler Analysis: PQRS Compliance Statement - Stenosis calculations for CT, MR and conventional angiography are based upon measurement of the distal ICA diameter in accordance with the NASCET methodology. Stenosis calculations for carotid ultrasound studies are derived from validated velocity criteria which are known to correlate with the NASCET methodology. Comparison study: None available. Findings: The common, internal and external carotid arteries were examined by grayscale, color and spectral Doppler ultrasound. Mild atherosclerotic calcifications identified in the bilateral carotid bulbs and proximal internal carotid arteries. Flow in both vertebral arteries was antegrade and normal. The following are the velocities and ratios in the carotid arteries on both sides: RIGHT ICA PV: 79cm/sec RIGHT CCA PV: 86cm/sec RIGHT ICA ED: 20cm/sec RIGHT IC/CCPV: 0.9 RIGHT VERTEBRAL: antegrade flow RIGHT % STENOSIS: Less than 50 LEFT ICA PV: 83cm/sec LEFT CCA PV: 82cm/sec LEFT ICA ED: 17cm/sec LEFT IC/CCPV: 0.7 LEFT VERTEBRAL: antegrade flow LEFT % STENOSIS: Less than 50 percent <50% ICA Stenosis: PSV < 125cm/s (EDV < 40cm/s; SVR < 2.0) 50-69% ICA Stenosis: PSV < 125-229cm/s (EDV 40-99cm/s; SVR 2.0-3.9) >70% ICA Stenosis: PSV > 230cm/s (EDV >100cm/s; SVR >4.0) Impression: No evidence of hemodynamically significant stenosis. Electronically signed by: Dwaine Fortune MD (05/17/2020 12:57 PM) [id number]
--- NOTE | 2020-05-17 14:52 | RAD ---
SCAN OF ABDOMINAL AORTA History: Weak pulses, screening Comparison: None. Findings: Multiple grayscale, color, duplex spectral analysis waveform images of the abdominal aorta are submitted. No abdominal aortic aneurysm is demonstrated. Maximal caliber of the proximal abdominal aorta was 2.6 m, 2.2 cm at the mid segment, and 2.5 cm distally. Peak systolic velocity of the abdominal aorta was about 107 cm/s. Impression: 1. No abdominal aortic aneurysm is demonstrated. Electronically signed by: Eben Gutierrez MD (05/17/2020 2:49 PM) [id number]
--- NOTE | 2020-05-17 16:12 | RAD ---
Bilateral lower extremity arterial duplex ultrasound study compared to similar exam dated December 042018 for weak pulses. TECHNIQUE AND FINDINGS: Real-time grayscale and color and spectral Doppler evaluation of the arteries of lower extremities is performed. There is mild calcified atherosclerosis in multiple distributions. No hemodynamically significant stenoses are identified. There is triphasic flow within the common femoral, superficial femoral, popliteal, posterior tibial, anterior tibial, and dorsalis pedis arteries bilaterally, as well as within the visualized right peroneal artery. Left peroneal artery is not visualized. Biphasic flow is seen in the femoral arteries bilaterally. No focal velocity elevations are identified to suggest hemodynamic significant stenosis in any distribution. On the right is incidentally noted ovoid 5.2 cm simple fluid collection in the popliteal fossa suggestive of De La O's cyst. In the left popliteal fossa is a 6.7 cm complex appearing fluid collection with multiple internal septations. 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 Given its somewhat complex appearance however, if the patient is symptomatic or has appropriate clinical history, other less likely etiologies including liquefied hematoma and/or abscess should be considered. IMPRESSION: 1. No significant stenosis involving the arteries of either lower extremity. Left peroneal artery is not visualized and may be occluded. 2. Fluid collections in the popliteal fossa bilaterally most likely representing De La O's cyst. The collection on the left is complex however, and clinical correlation for left likely etiology such as hematoma or abscess is encouraged. Electronically signed by: Twan Greenberg MD (05/17/2020 4:09 PM) [id number]
== END | disposition home or self-care (01) ==
LOC: US 08:52
PROVIDERS: ATTEND Family Medicine
DX: I65.23 Occlusion and stenosis of bilateral carotid arteries (principal); M62.81 Muscle weakness (generalized); M21.42 Flat foot [pes planus] (acquired), left foot; M21.41 Flat foot [pes planus] (acquired), right foot; M31.8 Other specified necrotizing vasculopathies
CPT/HCPCS: 76770; 93880; 93922; 93925

== ENCOUNTER → 2020-05-26 | Outpatient (CLI) | payer MEDICARE, OTHER ==
--- NOTE | 2020-05-26 10:26 | KCIC ---
MRI of the lumbar spine without contrast 05/26/2020 CLINICAL HISTORY: Low back pain. TECHNIQUE: Unenhanced T1-weighted and T2-weighted sagittal and axial and inversion recovery sagittal images of the lumbar spine were obtained. FINDINGS: Comparison is made to radiographs of the lumbar spine dated 02/17/2019. Very mild S-shaped curvature of the thoracolumbar spine is seen. Degenerative signal changes are seen involving all of the disks of the lumbar spine. Degenerative signal changes are seen within the marrow surrounding these discs. The conus medullaris is normal morphology, position, and signal characteristics. At the L1-2 and L2-3 disc spaces there are minimal to mild generalized disc bulges. Degenerative changes are seen involving the facet joints bilaterally. There are small facet joint effusions bilaterally. There is mild ligamentum flavum hypertrophy bilaterally. These findings when combined do not result in significant central spinal canal or neural foraminal stenosis. At the L3-4 disc space there is a mild to moderate generalized disc bulge. Degenerative changes are seen involving the facet joints bilaterally. There is moderate ligamentum flavum hypertrophy bilaterally. There is prominence of the posterior epidural fat. There are small facet joint effusions bilaterally. These findings when combined result in mild to moderate central spinal canal stenosis. No neural foraminal stenosis is seen. At the L4-5 disc space there is a moderate generalized disc bulge. Superimposed on this disc bulge is a focal central disc protrusion. This measures 3 mm in AP diameter. Degenerative changes are seen involving the facet joints bilaterally. There small moderate-sized facet joint effusions bilaterally. There is moderate ligament flavum hypertrophy bilaterally. There is prominence of the posterior epidural fat. These findings when combined result in moderate central spinal canal stenosis. No neural foraminal stenosis is seen. At the L5-S1 disc space there is a mild generalized disc bulge. This is eccentric to the right. Degenerative changes are seen involving the facet joints bilaterally. There are small facet joint effusions bilaterally. There is mild ligamentum flavum hypertrophy. These findings when combined do not result in significant central spinal canal or neural foraminal stenosis. IMPRESSION: The changes of degenerative disc disease are seen involving the lumbar spine. These findings result in mild to moderate central spinal canal stenosis at L3-4 and moderate central spinal canal stenosis at L4-5. No neural foraminal stenosis is seen. Electronically signed by: Alberto Espinoza MD (05/26/2020 10:22 AM) [id number]
== END ==
LOC: KCIC MRI 07:51
PROVIDERS: ATTEND Family Medicine
DX: M51.36 Other intervertebral disc degeneration, lumbar region (principal); M48.061 Spinal stenosis, lumbar region without neurogenic claudication
CPT/HCPCS: 72148

== ENCOUNTER → 2020-08-05 | Outpatient (CLI) | payer MEDICARE, OTHER ==
[~2020-08-05] MED LIST changes: +AMLO-186 PO; -AMLO5TAB10 PO; +GABA300C18 PO; +IOHEXOL 180 MG/ML 10 ML VIAL. ONE; +methylPREDNISolone ACETATE 40 MG/ML VIAL. ONE; +methylPREDNISolone ACETATE 80 MG/ML VIAL. ONE
--- NOTE | 2020-08-05 10:37 | PDOC ---
Progress Note - Pain Clinic Date of Service: DOS: DATE: 08/05/20 TIME: 10:13 Diagnosis: Dx: Lumbar radiculopathy with lumbar degenerative disease and lumbar spinal stenosis History or Present Illness: HPI: 79-year male returns for follow-up status post lumbar epidural steroid injection x3 last seen February 2019. Reports he did very well about 70% improvement for several months and pain is returned now over the past for 5 months he has been seen by orthopedics as well as neurology without any definitive treatments but multiple tests patient reports pain low back and aching in the low back and lower extremities bilaterally posterior gluteus posterior thigh lateral thigh anterior thighs medial knees as well bilateral patient was aching tight shooting tingling cramping and stabbing in the back and also shooting and radiating to the legs especially to the knees medially patient reports is a 4 to scale 10 is worse over the past week for an average to its least and is a 4 today patient reports no new motor or sensory deficit reports is better at night he is sleeping in recliner but does not awaken her from sleep worse with standing walking changing position especially getting up from a seated position and vice versa. Patient reports no bowel or bladder incontinence no new motor or sensory deficits. Patient did have a new MRI scan lumbar spine which reviewed with he and his spouse who accompanied him his visit today showing multilevel degenerative disc disease specially L3-4 and L4-5 with some moderate central spinal canal stenosis at L3-4 and L4-5. Physical Exam: VS: Blood pressure is 134/68 pulse 81 respirations are 20 temperature 94 F weight is 260 pounds stated PE: PHYSICAL EXAMINATION: GENERAL: The patient is awake, alert, oriented, appropriate, very pleasant demeanor, patient using a wheelchair for transport today HEENT: Shows normocephalic, atraumatic. Extraocular movements are intact and symmetrical. Oral cavity: Mucous membranes moist and pink. NECK: Shows anterior throat supple without palpable lymphadenopathy noted. Swallow reflex symmetrical. CHEST: Shows normal on inspection. Breath sounds are clear bilaterally, distant but no rales rhonchi wheezes auscultated. HEART: Shows S1, S2 clear. No murmurs auscultated. ABDOMEN: Soft, nontender, nondistended, obese. No palpable organomegaly is noted. No rebound or guarding demonstrated. BACK: Shows spine grossly in the midline. Normal-appearing cervical lordotic curvature. There is slightly increased thoracic kyphosis, some minor flattening of the lumbar lordotic curvature. Lumbar paraspinous muscles show symmetrical on inspection, on palpation shows some moderate tenderness diffusely throughout the upper, middle and lower distribution of the paraspinous muscles bilaterally, but without specific trigger points, without radiation of pain. The patient has good rotational motion of the lumbar spine, both laterally as well as extension and flexion without significant difficulty. No tenderness over the spinous processes, sacrum or sacroiliac regions. EXTREMITIES: Lower extremities show deep tendon reflexes 1+ in the patellar and tendo calcaneus tendons. Motor exam is 4 on a scale of 5 with right dorsiflexion, extension, quadriceps and hamstring flexion and 4/5 on the left. Peripheral pulses are 1+ posterior tibial. No peripheral edema is noted bilaterally. Lower extremities are warm and dry to touch, equal in color and appearance. SKIN: Shows warm and dry, good turgor. No edema. No sores, rashes or bruising throughout. Procedure: Procedure: Options were discussed with the patient, patient's old chart was reviewed his current medication regimen updated current review of systems updated today as well. We will proceed with a lumbar epidural steroid injection today with fluoroscopic guidance. Risks were discussed including but not limited to: Bleeding, infection, possibility of epidural hematoma and subsequent neurological compromise, dural puncture, headaches, spinal cord and/or nerve damage, side effects of steroid medication, and poor results regarding pain control. Patient understands wished to proceed. Patient will return to clinic in approximate 2 weeks for follow-up. Patient was counseled as to return appointment activity level and side effects to be aware of. Medication Injected: Med Injected: Procedure is lumbar epidural steroid injection under local anesthetic using sterile prep and drape at the L4-5 level using C-arm fluoroscopic guidance in both AP and lateral views medications injected is 120 mg Depo-Medrol + 10 mL preservative-free normal saline and 2 mL contrast- condition at discharge is stable patient tolerated procedure well had no complications. Condition at Discharge: Condition at Discharge: Condition at discharge stable, patient tolerated seizure well and had no complications. EAN JEWELL MD Aug 05, 2020 10:37
== END | disposition home or self-care (01) ==
LOC: PNCL 09:10
PROVIDERS: ATTEND Anesthesiology
DX: M51.16 Intervertebral disc disorders with radiculopathy, lumbar region (principal); M48.061 Spinal stenosis, lumbar region without neurogenic claudication; I10 Essential (primary) hypertension; E78.00 Pure hypercholesterolemia, unspecified; K21.9 Gastro-esophageal reflux disease without esophagitis; G47.30 Sleep apnea, unspecified; N40.1 Benign prostatic hyperplasia with lower urinary tract symptoms; M19.90 Unspecified osteoarthritis, unspecified site; M10.9 Gout, unspecified; E11.42 Type 2 diabetes mellitus with diabetic polyneuropathy; Z85.828 Personal history of other malignant neoplasm of skin; Z79.899 Other long term (current) drug therapy; Z98.890 Other specified postprocedural states; Z82.49 Family history of ischemic heart disease and other diseases of the circulatory system
CPT/HCPCS: 62323; J1030; J1040; Q9965

== ENCOUNTER → 2020-09-26 | Outpatient (CLI) | payer MEDICARE, OTHER ==
[~2020-09-26] MED LIST changes: +CIPR500T2 PO; -IOHEXOL 180 MG/ML 10 ML VIAL. ONE; +MICONAZOLE NITRATE 2% TP
--- NOTE | 2020-09-26 11:56 | PDOC4 ---
PROCEDURE Procedure Patient was consented for lumbar epidural steroid injection. Risks were dis cussed including but not limited to: Bleeding, infection, possibility of epidural hematoma and subsequent neurological compromise, dural puncture, headaches, spinal cord and/or nerve damage, side effects of steroid medication, and poor results regarding pain control. Patient understands and wished to proceed. Procedure is lumbar epidural steroid injection under local anesthetic using sterile prep and drape at the L4-5 level, medications injected is 120 mg Depo- Medrol + 10 mL preservative-free normal saline,- condition at discharge is stable patient tolerated procedure well had no complications. EAN JEWELL MD Sep 26, 2020 11:56
--- NOTE | 2020-09-26 11:56 | PDOC ---
Progress Note - Pain Clinic Date of Service: DOS: DATE: 09/26/20 TIME: 11:51 Diagnosis: Dx: Lumbar radiculopathy with lumbar degenerative disc disease lumbar spinal stenosis History or Present Illness: HPI: 79-year-old male returns for follow-up status post lumbar epidural steroid action x1. Patient reports about 50% improvement initially but the pain is returning now in the low back and the bilateral lower extremities mostly the posterior gluteus posterior lateral thighs lateral anterior thighs and the calves as well. Patient ports he also has knee pain bilaterally and is seeing his orthopedist next week for injections in his knees. Patient reports his pain and tingling tight across low back shooting on and off in intensity worse with standing walking better with sitting patient reports he spends most of his waking hours in a seated position and he is using a wheelchair today. Patient rates his pain as a 9 on scale 10 is worse over the past week 6 on average 3 its least is a 6 today. Patient reports no new motor or sensory deficits no new bowel bladder incontinence or other complaints. Physical Exam: VS: Blood pressure is 123/70 pulse 75 respirations 16 temperature is 98.1 F height is 6 feet 1 inches weight is 275 pounds PE: PHYSICAL EXAMINATION: GENERAL: The patient is awake, alert, oriented, appropriate, very pleasant demeanor HEENT: Shows normocephalic, atraumatic. Extraocular movements are intact and symmetrical. Oral cavity: Mucous membranes moist and pink. NECK: Shows anterior throat supple without palpable lymphadenopathy noted. Swallow reflex symmetrical. CHEST: Shows normal on inspection. Breath sounds are clear bilaterally, no rales or rhonchi. HEART: Shows S1, S2 clear. No murmurs auscultated. ABDOMEN: Soft, nontender, nondistended, obese. No palpable organomegaly is noted. BACK: Shows spine grossly in the midline. Normal-appearing cervical lordotic curvature. There is increased thoracic kyphosis, some flattening of the lumbar lordotic curvature. Lumbar paraspinous muscles show symmetrical on inspection, on palpation shows some moderate tenderness diffusely throughout the upper, middle and lower distribution of the paraspinous muscles, but without specific trigger points, without radiation of pain. The patient has good rotational motion of the lumbar spine, both laterally as well as extension and flexion without significant difficulty. EXTREMITIES: Lower extremities show deep tendon reflexes 1+ in the patellar and tendo calcaneus tendons. Motor exam is 4 on a scale of 5 with right dorsiflexion, extension, quadriceps and hamstring flexion and 4/5 on the left. Peripheral pulses are 1+ posterior tibial. No peripheral edema is noted bilaterally. Lower extremities are warm and dry to touch, equal in color and appearance. SKIN: Shows warm and dry, good turgor. No edema. No sores, rashes or bruising throughout. Procedure: Procedure: Options were discussed with the patient. Patient chart reviewed his current medication regimen updated current review of systems updated today as well. We will proceed with a second in the series lumbar epidural steroid traction stable fluoroscopic guidance. Risks were discussed including but not limited to: Bleeding, infection, possibility of epidural hematoma and subsequent neurological compromise, dural puncture, headaches, spinal cord and/or nerve damage, side effects of steroid medication, and poor results regarding pain control. Patient understands and wished to proceed. Patient will return to the clinic in approximate 2 weeks for follow-up, was counseled as return appointment activity level and side effects to be aware of. Medication Injected: Med Injected: Procedure is lumbar epidural steroid injection under local anesthetic using sterile prep and drape at the L4-5 level, medications injected is 120 mg Depo- Medrol + 10 mL preservative-free normal saline, condition at discharge is stable patient tolerated procedure well had no complications. Condition at Discharge: Condition at Discharge: Condition at discharge stable, patient tolerated the procedure well and had no complications. EAN JEWELL MD Sep 26, 2020 11:56
== END | disposition home or self-care (01) ==
LOC: PNCL 10:27
PROVIDERS: ATTEND Anesthesiology
DX: M51.16 Intervertebral disc disorders with radiculopathy, lumbar region (principal); M48.061 Spinal stenosis, lumbar region without neurogenic claudication; I13.0 Hypertensive heart and chronic kidney disease with heart failure and stage 1 through stage 4 chronic kidney disease, or unspecified chronic kidney disease; E11.22 Type 2 diabetes mellitus with diabetic chronic kidney disease; N18.9 Chronic kidney disease, unspecified; I50.32 Chronic diastolic (congestive) heart failure; E78.00 Pure hypercholesterolemia, unspecified; E11.42 Type 2 diabetes mellitus with diabetic polyneuropathy; M10.9 Gout, unspecified; K21.00 Gastro-esophageal reflux disease with esophagitis, without bleeding; G47.33 Obstructive sleep apnea (adult) (pediatric); F32.9 Major depressive disorder, single episode, unspecified; J44.9 Chronic obstructive pulmonary disease, unspecified; G62.9 Polyneuropathy, unspecified; E66.01 Morbid (severe) obesity due to excess calories; Z80.8 Family history of malignant neoplasm of other organs or systems; Z79.899 Other long term (current) drug therapy; Z79.84 Long term (current) use of oral hypoglycemic drugs; Z79.51 Long term (current) use of inhaled steroids; Z85.828 Personal history of other malignant neoplasm of skin; Z87.09 Personal history of other diseases of the respiratory system; Z85.46 Personal history of malignant neoplasm of prostate; Z85.820 Personal history of malignant melanoma of skin; Z91.81 History of falling; Z82.49 Family history of ischemic heart disease and other diseases of the circulatory system
CPT/HCPCS: 62323; J1030; J1040

== ENCOUNTER 2021-07-17 18:30 | Emergency (ER) | payer MEDICARE, OTHER ==
[~2021-07-17] VITALS: Ht 188 cm; Wt 109.0 kg
[~2021-07-17 18:30] MED LIST changes: +ALBU2.5V5 NEB; +AMLO-187 PO; +AMLO10TA4 PO; +AMOX1TAB10 PO; +ASPI-630 PO; +ASPI-886 PO; +ATOR80TA72 PO; +CALC-56 PO; +CLOP75TA PO; +DICL20GE TP; -DOXY100C2 PO; +DOXY100C3 PO; +DULO40CA2 PO; +FURO20TA3 PO; +HYDR-2867 IVP; +HYDR-2867 PO; +INSU100I11 SQ; +IPRA3AMP29 NEB; +LACT1CAP19 PO; +LIPITOR80 MG PO; +METF10007 PO; +MULT-238 PO; +OMEP20TA8 PO; +PANT40TA77 PO; +POTA-112 PO; -POTA10TA6 PO; +TAMS0.4C97 PO; +[UNRECOGNIZED DRUG - OTHER] PO; -methylPREDNISolone ACETATE 40 MG/ML VIAL. ONE; -methylPREDNISolone ACETATE 80 MG/ML VIAL. ONE
--- NOTE | 2021-07-17 18:52 | PHYS DOC ---
Past Medical History Past Medical History: CHF, Depression, Diabetes-Type II, GERD, High Salma sterol, Hypertension, Seizure, Other Additional Past Medical Histor: gout; prostate; sleep apnea, neuropathy, CKD Past Surgical History: Tonsillectomy, Other Additional Past Surgical Histo: right ankle,SKIN CA'S Smoking Status: Never Smoker Alcohol Use: None Drug Use: None General Adult EDM: Chief Complaint: BLOOD IN URINE HPI: HPI: Patient is a 80 year old male with past medical history of hypertension, CHF, CVA (on plavix) and seizures presents with the chief complaint of blood in lau cath. Blood was noticed this evening. On exam blood is dark red. Patient has had a lau in place since April. Patient has no complaints. Review of Systems: Review of Systems: Constitutional: Denies fever or chills. [] Eyes: Denies change in visual acuity. [] HENT: Denies nasal congestion or sore throat. [] Respiratory: Denies cough or shortness of breath. [] Cardiovascular: Denies chest pain or edema. [] GI: Denies abdominal pain, nausea, vomiting, bloody stools or diarrhea. [] : Denies dysuria. [Positive hematuria] Musculoskeletal: Denies back pain or joint pain. [] Integument: Denies rash. [] Neurologic: Denies headache, focal weakness or sensory changes. [] Endocrine: Denies polyuria or polydipsia. [] Lymphatic: Denies swollen glands. [] Psychiatric: Denies depression or anxiety. [] Heart Score: C/O Chest Pain: N/A Risk Factors: Risk Factors: DM, Current or recent (<one month) smoker, HTN, HLP, family history of CAD, obesity. Risk Scores: Score 0 - 3: 2.5% MACE over next 6 weeks - Discharge Home Score 4 - 6: 20.3% MACE over next 6 weeks - Admit for Clinical Observation Score 7 - 10: 72.7% MACE over next 6 weeks - Early Invasive Strategies Allergies: Allergies: Allergies Coded Allergies Type Severity Reaction Last Updated Verified No Known Drug Allergies 08/08/17 No Physical Exam: PE: Constitutional: Well developed, well nourished, no acute distress, non-toxic appearance. [] HENT: Normocephalic, atraumatic, bilateral external ears normal, oropharynx moist, no oral exudates, nose normal. [] Eyes: PERRLA, EOMI, conjunctiva normal, no discharge. [] Neck: Normal range of motion, no tenderness, supple, no stridor. [] Cardiovascular:Heart rate regular rhythm, no murmur [] Lungs & Thorax: Bilateral breath sounds clear to auscultation [] Abdomen: Bowel sounds normal, soft, no tenderness, no masses, no pulsatile masses. [] Skin: Warm, dry, no erythema, no rash. [] Back: No tenderness, no CVA tenderness. [] Extremities: No tenderness, no cyanosis, no clubbing, ROM intact, no edema. [] Neurologic: Alert and oriented X 3, normal motor function, normal sensory function, no focal deficits noted. [] Psychologic: Affect normal, judgement normal, mood normal. [] Lau in place dark urine no clots EKG: EKG: [] Radiology/Procedures: Radiology/Procedures: [] Course & Med Decision Making: Course & Med Decision Making Pertinent Labs and Imaging studies reviewed. (See chart for details) [] Evaluated for chief complaint. Urine positive WBCs positive blood nitrates and leukocyte esterases unable to test due to amount of blood. Will treat patient with presumed urinary tract infection. Treatment in the ER included Levaquin 750 mg p.o. Patient will be discharged home with Levaquin 750 for 5 days. Discussed with family possibility of urinary retention due to blood clots. Advised to return to the ER for reevaluation or to follow-up with primary care physician if Lau catheter does not drain. Patient is to continue his Plavix. Adrian Disclaimer: Adrian Disclaimer: This electronic medical record was generated, in whole or in part, using a voice recognition dictation system. Departure Departure Impression: Primary Impression: Urinary tract infection Additional Impression: Blood in urine Disposition: HOME / SELF CARE / HOMELESS Condition: STABLE Referrals: BENJY [place] (PCP) Patient Instructions: Hematuria, Adult, Urinary Tract Infection Scripts Levofloxacin (LEVOFLOXACIN) 750 Mg Tablet 1 TAB PO DAILY, #5 TAB Prov: DONTE ORELLANA DO 07/17/21 DONTE ORELLANA I DO Jul 17, 2021 18:52
[2021-07-17 19:20] LABS: BASO # 0.1 x10^3/uL (0.0-0.2); BASO % 1 % (0-3); EOS # 0.5 x10^3/uL (0.0-0.7); EOS % 7 % (0-3); HEMATOCRIT 37.8 % (39.0-53.0); HEMOGLOBIN 12.4 g/dL (13.0-17.5); LYMPH # 1.2 x10^3/uL (1.0-4.8); LYMPH % 16 % (24-48); MEAN CORPUSCULAR HEMOGLOBIN 27 pg (25-35); MEAN CORPUSCULAR HGB CONC 33 g/dL (31-37); MEAN CORPUSCULAR VOLUME 84 fL (79-100); MONO # 0.6 x10^3/uL (0.0-1.1); MONO % 8 % (0-9); NEUT % 68 % (31-73); PLATELET COUNT 347 x10^3/uL (140-400); RED BLOOD COUNT 4.53 x10^6/uL (4.30-5.70); RED CELL DISTRIBUTION WIDTH 16.7 % (11.5-14.5); WHITE BLOOD COUNT 7.4 x10^3/uL (4.0-11.0)
[2021-07-17 19:32] LABS: CLARITY,URINE BLOODY; COLOR,URINE RED
[2021-07-17 19:32] LABS: CALCIUM 9.1 mg/dL (8.5-10.1); CREATININE 1.1 mg/dL (0.7-1.3); GFR 64.1; POTASSIUM 3.9 mmol/L (3.5-5.1)
[2021-07-17 19:33] LABS: RBC,URINE TNTC /HPF (0-2)
[2021-07-17 19:34] LABS: BACTERIA,URINE 0 /HPF (0-FEW); WBC,URINE 20-40 /HPF (0-4)
[2021-07-17 19:38] LABS: ALBUMIN 3.1 g/dL (3.4-5.0); ALBUMIN/GLOBULIN RATIO 0.6 (1.0-1.7); TOTAL BILIRUBIN 0.6 mg/dL (0.2-1.0); TOTAL PROTEIN 7.9 g/dL (6.4-8.2)
[2021-07-17] MEDS ORDERED: LEVO750T5 PO (19:47)
[2021-07-17 20:33] VITALS: BP 150/81
== END 2021-07-17 20:55 | disposition home or self-care (01) ==
LOC: ER 18:30
DX: N39.0 Urinary tract infection, site not specified (principal); R31.9 Hematuria, unspecified; K21.9 Gastro-esophageal reflux disease without esophagitis; E80.0 Hereditary erythropoietic porphyria; E11.22 Type 2 diabetes mellitus with diabetic chronic kidney disease; I13.0 Hypertensive heart and chronic kidney disease with heart failure and stage 1 through stage 4 chronic kidney disease, or unspecified chronic kidney disease; N18.9 Chronic kidney disease, unspecified; I50.9 Heart failure, unspecified; E11.40 Type 2 diabetes mellitus with diabetic neuropathy, unspecified; M10.9 Gout, unspecified
CPT/HCPCS: 36415; 80053; 81001; 85025; 87086; 99285-25

== ENCOUNTER 2021-07-18 11:50 | Emergency (ER) | payer MEDICARE, OTHER ==
[~2021-07-18] VITALS: Ht 188 cm; Wt 123.6 kg
[~2021-07-18 11:50] MED LIST changes: +LEVO750T5 PO
--- NOTE | 2021-07-18 12:23 | PHYS DOC ---
Past Medical History Past Medical History: CHF, Depression, Diabetes-Type II, GERD, High Salma sterol, Hypertension, Seizure, Other Additional Past Medical Histor: gout; prostate; sleep apnea, neuropathy, CKD Past Surgical History: Tonsillectomy, Other Additional Past Surgical Histo: right ankle,SKIN CA'S Smoking Status: Never Smoker Alcohol Use: None Drug Use: None General Adult EDM: Chief Complaint: URINE CATHETER PROBLEM HPI: HPI: Patient is a 80 year old male who presents with was here yesterday for blood in his Lau bag. He was diagnosed with a UTI and was given Levaquin. He was given follow-up instructions to return to the ER if his Lau bag was not draining. Patient's brought him back today is his morning when she was cleaning him up he had blood all over his urethra, penis and scrotum. He had his lau replaced 06/30/21. He denies any other complications today. Patient has a history of hypertension, CHF, CVA (on Plavix), seizure, renal failure, gout, high cholesterol, diabetes with neuropathy. Review of Systems: Review of Systems: Constitutional: Denies fever or chills. [] Eyes: Denies change in visual acuity. [] HENT: Denies nasal congestion or sore throat. [] Respiratory: Denies cough or shortness of breath. [] Cardiovascular: Denies chest pain or edema. [] GI: Denies abdominal pain, nausea, vomiting, bloody stools or diarrhea. [] : Denies dysuria. + Blood around catheter insertion area [] Musculoskeletal: Denies back pain or joint pain. [] Integument: Denies rash. [] Neurologic: Denies headache, focal weakness or sensory changes. [] Endocrine: Denies polyuria or polydipsia. [] Lymphatic: Denies swollen glands. [] Psychiatric: Denies depression or anxiety. [] Heart Score: C/O Chest Pain: No Allergies: Allergies: Allergies Coded Allergies Type Severity Reaction Last Updated Verified No Known Drug Allergies 08/08/17 No Physical Exam: PE: Constitutional: Well developed, well nourished, no acute distress, non-toxic appearance. [] HENT: Normocephalic, atraumatic, bilateral external ears normal, oropharynx [address], no oral exudates, nose normal. [] Eyes: PERRLA, EOMI, conjunctiva normal, no discharge. [] Neck: Normal range of motion, no tenderness, supple, no stridor. [] Cardiovascular:Heart rate regular rhythm, no murmur [] Lungs & Thorax: Bilateral breath sounds clear to auscultation [] Abdomen: Bowel sounds normal, soft, no tenderness, no masses, no pulsatile masses. Catheter in place with dark blood in catheter bag. Some dried blood around urethra area. [] Skin: Warm, dry, no erythema, no rash. [] Back: No tenderness, no CVA tenderness. [] Extremities: No tenderness, no cyanosis, no clubbing, ROM intact, no edema. [] Neurologic: Alert and oriented X 3, normal motor function, normal sensory f unction, no focal deficits noted. [] Psychologic: Affect normal, judgement normal, mood normal. [] EKG: EKG: [] Radiology/Procedures: Radiology/Procedures: [] Course & Med Decision Making: Course & Med Decision Making Pertinent Labs and Imaging studies reviewed. (See chart for details) See HPI. Abdomen is soft and nondistended. There is no tenderness to the abdomen. Dried blood noted around the penis and around the urethral area. No clots noted in the back. Urine draining appropriately. Patient's did call the urology doctor and they state that we should go ahead and just change the catheter. We are changing out the catheter here in the ED. Lau catheter is draining without complication. [] Dragon Disclaimer: Dragon Disclaimer: This electronic medical record was generated, in whole or in part, using a voice recognition dictation system. Departure Departure Impression: Primary Impression: Lau catheter problem Qualified Codes: T83.9XXA - Unspecified complication of genitourinary prosthetic device, implant and graft, initial encounter Disposition: HOME / SELF CARE / HOMELESS Condition: STABLE Referrals: BENJY [place] (PCP) Patient Instructions: Lau Catheter Care, Adult Additional Instructions: Follow-up with urologist as soon as possible. Take medication as prescribed and with food. If your symptoms worsen or your Lau catheter stops draining return to the emergency room. ESME WESLEY DECKHAND MAINTENANCE Jul 18, 2021 12:23
[2021-07-18 14:05] VITALS: BP 134/66
== END 2021-07-18 14:20 | disposition home or self-care (01) ==
LOC: ER 11:51
DX: T83.098A Other mechanical complication of other urinary catheter, initial encounter (principal); K21.9 Gastro-esophageal reflux disease without esophagitis; E78.00 Pure hypercholesterolemia, unspecified; E11.22 Type 2 diabetes mellitus with diabetic chronic kidney disease; I13.0 Hypertensive heart and chronic kidney disease with heart failure and stage 1 through stage 4 chronic kidney disease, or unspecified chronic kidney disease; N18.9 Chronic kidney disease, unspecified; I50.9 Heart failure, unspecified; E11.40 Type 2 diabetes mellitus with diabetic neuropathy, unspecified; Y92.89 Other specified places as the place of occurrence of the external cause
CPT/HCPCS: 51702; 99284

== ENCOUNTER 2021-10-20 02:36 | Emergency (ER) | payer MEDICARE, OTHER ==
[~2021-10-20] VITALS: Ht 185.4 cm; Wt 127.8 kg
[2021-10-20 02:40] VITALS: BP 179/96
--- NOTE | 2021-10-20 02:57 | PHYS DOC ---
Past Medical History Past Medical History: CHF, Depression, Diabetes-Type II, GERD, High Salma sterol, Hypertension, Seizure, Other Additional Past Medical Histor: gout; prostate; sleep apnea, neuropathy, CKD Past Surgical History: Tonsillectomy, Other Additional Past Surgical Histo: right ankle,SKIN CA'S Smoking Status: Never Smoker Alcohol Use: None Drug Use: None General Adult EDM: Chief Complaint: URINE CATHETER PROBLEM HPI: HPI: Patient is a 80 year old male brought in from home by EMS for evaluation of a possibly clogged urinary catheter. He reports that he thinks he has had this particular urinary catheter for about 2 weeks. There is some significant sediment noted in the catheter, and he just noticed that it was not draining properly about 2-1/2 hours ago. No gross hematuria reported. He denies abdominal pain, nausea, vomiting. Denies fevers or chills. He has home health nursing staff that comes to his home and changes at his catheter. He does have a urologist, though he is unable to remember the name of this urologist. He denies any pelvic or abdominal trauma. Denies scrotal or penis trauma. The patient has been seen multiple times for problems regarding his urinary catheter. He usually presents with gross hematuria or bleeding around his urethra. He has not noticed any bleeding issues recently. The nursing staff was able to easily and immediately remove his old catheter and replace it. He felt much better thereafter, he is draining clear, yellow urine. His new urinary catheter began draining without any difficulty. Review of Systems: Review of Systems: Constitutional: Denies fever or chills. [] Respiratory: Denies cough or shortness of breath. [] Cardiovascular: Denies chest pain or edema. [] GI: Denies abdominal pain, nausea, vomiting, or bowel habit changes : Chronic indwelling Pisano catheter, not draining appropriately, with sediment for about the past 2 and half hours. No gross hematuria. He denies penile or scrotal swelling or bleeding. Denies pelvic pain. Musculoskeletal: Denies back pain or joint pain. [] Integument: Denies rash. [] Neurologic: Denies headache, or weakness, denies fall, head injury or syncope Psychiatric: Denies depression or anxiety. [] Heart Score: C/O Chest Pain: No Risk Factors: Risk Factors: DM, Current or recent (<one month) smoker, HTN, HLP, family history of CAD, obesity. Risk Scores: Score 0 - 3: 2.5% MACE over next 6 weeks - Discharge Home Score 4 - 6: 20.3% MACE over next 6 weeks - Admit for Clinical Observation Score 7 - 10: 72.7% MACE over next 6 weeks - Early Invasive Strategies Allergies: Allergies: Allergies Coded Allergies Type Severity Reaction Last Updated Verified No Known Drug Allergies 08/08/17 No Physical Exam: PE: Constitutional: Well developed, well nourished, no acute distress, non-toxic appearance. He appears to be chronically ill, not acutely ill-appearing HENT: Normocephalic, atraumatic, no facial or oral swelling noted Eyes: Conjunctive are clear, sclera anicteric Neck: Trachea midline, no tenderness, neck is supple Cardiovascular:Heart rate regular rhythm, +2 dorsalis pedis and +2 radial pulses, warm and well Lungs & Thorax: Bilateral breath sounds clear to auscultation, no rales, rhonchi or wheezes Abdomen: Abdomen is obese, soft, nondistended, nontender to palpation, no palpable pulsatile mass : Penile urethral meatus is patent, no bleeding noted. The urinary catheter he presented from home with does appear to be clogged with some sediment. After the urinary catheter is replaced, he is draining clear, yellow urine. He reports feeling much better. The urinary catheter appears to be draining appropriately and very well. No gross hematuria. No scrotal swelling or tenderness. Skin: Warm, dry, no erythema, no rash. [] Extremities: No tenderness, no cyanosis, no clubbing, ROM intact, mild, symmetric 1+ nonpitting edema. No calf tenderness Neurologic: He is awake, alert, oriented x3, moves all 4 extremities equally, though he does have some symmetric generalized motor weakness. Sensation is grossly intact. Speech is clear and fluent, no facial asymmetry. Psychologic: Affect normal, judgement normal, mood normal. [] EKG: EKG: [] Radiology/Procedures: Radiology/Procedures: [] Course & Med Decision Making: Course & Med Decision Making The patient's urinary catheter is exchanged without incident. I did review his previous records. He had at one time been empirically treated for urinary tract infection with Levaquin. His urine appears to be clear. He has had an indwelling Pisano off and on for several months, with this last [address] for at least 2 weeks. He denies fevers or chills. He denies subjective nausea, vomiting or abdominal pain. His corroborates that all symptoms started just as prior to arrival. He has not been feeling poorly at all before this. She reports that he has not had any fevers or chills at home. He has a scheduled appointment with urology within the week. He should keep this appointment. Reemaon Disclaimer: Adrian Disclaimer: This electronic medical record was generated, in whole or in part, using a voice recognition dictation system. Departure Departure Impression: Primary Impression: Obstruction of indwelling urinary catheter Qualified Codes: T83.091A - Other mechanical complication of indwelling urethral catheter, initial encounter Additional Impression: Urinary catheter (Pisano) change required Disposition: 01 HOME / SELF CARE / HOMELESS Condition: STABLE Referrals: BENJY [place] (PCP) Patient Instructions: Indwelling Urinary Catheter Care-Brief Additional Instructions: Return to the ER for abdominal pain, temperature 100.4 or higher, vomiting, if your urinary catheter stops draining, if you notice any significant bleeding in your urine, if you are acutely injured or sustained any trauma, if you develop chest pain, shortness of breath or for any other concerns. Please follow-up with your urologist at your next scheduled visit. Please make sure that they know that your urinary catheter was changed out today, please also let your home health nurse know this as well. KEM DONIS DO Oct 20, 2021 02:57
== END 2021-10-20 03:15 | disposition home or self-care (01) ==
LOC: ER 02:36
DX: T83.091A Other mechanical complication of indwelling urethral catheter, initial encounter (principal); E11.40 Type 2 diabetes mellitus with diabetic neuropathy, unspecified; I13.0 Hypertensive heart and chronic kidney disease with heart failure and stage 1 through stage 4 chronic kidney disease, or unspecified chronic kidney disease; E11.22 Type 2 diabetes mellitus with diabetic chronic kidney disease; N18.9 Chronic kidney disease, unspecified; E78.00 Pure hypercholesterolemia, unspecified; K21.9 Gastro-esophageal reflux disease without esophagitis; M10.9 Gout, unspecified; Y84.6 Urinary catheterization as the cause of abnormal reaction of the patient, or of later complication, without mention of misadventure at the time of the procedure; Y92.89 Other specified places as the place of occurrence of the external cause
CPT/HCPCS: 51702; 99284

== ENCOUNTER 2021-10-29 17:37 | Emergency (ER) | payer MEDICARE, OTHER ==
[~2021-10-29] VITALS: Ht 185.4 cm; Wt 127.0 kg
--- NOTE | 2021-10-29 19:53 | PHYS DOC ---
Past Medical History Past Medical History: CHF, Depression, Diabetes-Type II, GERD, High Salma sterol, Hypertension, Seizure, Other Additional Past Medical Histor: gout; prostate; sleep apnea, neuropathy, CKD ([employer] KNIFE) Past Surgical History: Tonsillectomy, Other Additional Past Surgical Histo: right ankle,SKIN CA'S ([employer] KNIFE) Smoking Status: Never Smoker Alcohol Use: None Drug Use: None ([employer]NIFE) General Adult EDM: Chief Complaint: URINE CATHETER PROBLEM HPI: HPI: Patient is a 81 year old man with history of " very enlarged prostate" per presenting to the ED today with complaints of a catheter that is not draining. is doing most of the speaking, she states patient has had a catheter for couple months and is waiting to have surgery next month to remove or reduce his prostate size. states today she was unable to flush the catheter after patient to get up this evening. Catheter was replaced on Saturday at [facility]. stated they called the urologist and the nurse practitioner told him the catheter needs to be replaced. Patient denies any fever, abdominal pain, nausea or vomiting (M[employer] KNIFE) Review of Systems: Review of Systems: Constitutional: Denies fever or chills. [] Eyes: Denies change in visual acuity. [] HENT: Denies nasal congestion or sore throat. [] Respiratory: Denies cough or shortness of breath. [] Cardiovascular: Denies chest pain or edema. [] GI: Denies abdominal pain, nausea, vomiting, bloody stools or diarrhea. [] : Reports catheter not draining, flushing Musculoskeletal: Denies back pain or joint pain. [] Integument: Denies rash. [] Neurologic: Denies headache, focal weakness or sensory changes. [] [] Psychiatric: Denies depression or anxiety. [] (M[employer]ALL[employer] KNIFE) Heart Score: C/O Chest Pain: N/A Risk Factors: Risk Factors: DM, Current or recent (<one month) smoker, HTN, HLP, family his tory of CAD, obesity. Risk Scores: Score 0 - 3: 2.5% MACE over next 6 weeks - Discharge Home Score 4 - 6: 20.3% MACE over next 6 weeks - Admit for Clinical Observation Score 7 - 10: 72.7% MACE over next 6 weeks - Early Invasive Strategies (M[employer] KNIFE) Allergies: Allergies: Allergies Coded Allergies Type Severity Reaction Last Updated Verified No Known Drug Allergies 08/08/17 No (M[employer]NIFE) Physical Exam: PE: Constitutional: Well developed, well nourished, no acute distress, non-toxic appearance. [] HENT: Normocephalic, atraumatic, bilateral external ears normal, oropharynx moist, no oral exudates, nose normal. [] Eyes: PERRLA, EOMI, conjunctiva normal, no discharge. [] Neck: Normal range of motion, no tenderness, supple, no stridor. [] Cardiovascular:Heart rate regular rhythm, no murmur [] Lungs & Thorax: Bilateral breath sounds clear to auscultation [] Abdomen: Bowel sounds normal, soft, no tenderness, no masses, no pulsatile masses. [] Male -Pisano catheter in place, small amount of urine noted in the catheter bag with trace amount of blood clots. Skin: Warm, dry, no erythema, no rash. [] Back: No tenderness, no CVA tenderness. [] Extremities: No tenderness, no cyanosis, no clubbing, ROM intact, no edema. [] Neurologic: Alert and oriented X 3, normal motor function, normal sensory function, no focal deficits noted. [] Psychologic: Affect normal, judgement normal, mood normal. [] ([employer]NIFE) Current Patient Data: Vital Signs: Vital Signs Date Time Temp Pulse Resp B/P (MAP) Pulse Ox O2 Delivery O2 Flow Rate FiO2 10/29/21 17:57 98.1 74 20 140/63 (88) 95 Room Air 98.1 ([employer]IFE) EKG: EKG: [] ([employer]NIFE) Radiology/Procedures: Radiology/Procedures: [] (MINE VALLADARES APRN) Course & Med Decision Making: Course & Med Decision Making Pertinent Labs and Imaging studies reviewed. (See chart for details) This is a 81-year-old male patient presenting to the ED today to be evaluated for catheter that is not flushing or draining. On arrival to the ED the catheter had some urine with trace amount of blood clots Patient's Pisano catheter was successfully changed in the ED, UA noted for small amounts of leukocytes, 11-20 WBCs- state patient was given IV antibiotics [facility] on Saturday and she will call Urologist tomorrow and see if he needs any more. (MINE VALLADARES APRN) Course & Med Decision Making Patients Care and treatment plan provided by ER Nurse Practitioner. I was not involved in this patients care but was available for consult. Patient's chart reviewed. (DONTE ORELLANA DO) Dragon Disclaimer: Dragon Disclaimer: This electronic medical record was generated, in whole or in part, using a voice recognition dictation system. (MINE VALLADARES APRN) Departure Departure Impression: Primary Impression: Pisano catheter problem Qualified Codes: T83.9XXS - Unspecified complication of genitourinary prosthetic device, implant and graft, sequela Disposition: HOME / SELF CARE / HOMELESS Condition: STABLE Referrals: BENJY [place] (PCP) BILL BARROW MD follow up with your urologist as soon as you can Patient Instructions: Pisano Catheter Care, Adult Additional Instructions: Your Pisano catheter was changed in the emergency room. Please contact your urologist tomorrow and give them the update. Also check and see if you need to be on antibiotics MINE VALLADARES APRN Oct 29, 2021 19:53 DONTE ORELLANA DO Oct 31, 2021 18:03
[2021-10-29 20:48] LABS: BILIRUBIN,URINE NEGATIVE (NEG); CLARITY,URINE HAZY; COLOR,URINE YELLOW; NITRITE,URINE NEGATIVE (NEG); PROTEIN,URINE 30 mg/dL (NEG-TRACE); UROBILINOGEN,URINE 0.2 mg/dL (0.2 mg/dL)
[2021-10-29 20:50] LABS: RBC,URINE >40 /HPF (0-2)
[2021-10-29 20:51] LABS: BACTERIA,URINE 0 /HPF (0-FEW); HYALINE CASTS, URINE FEW /HPF
[2021-10-29 21:36] VITALS: BP 141/66
== END 2021-10-29 21:40 | disposition home or self-care (01) ==
LOC: ER 17:37
DX: T83.098S Other mechanical complication of other urinary catheter, sequela (principal); E11.40 Type 2 diabetes mellitus with diabetic neuropathy, unspecified; E11.22 Type 2 diabetes mellitus with diabetic chronic kidney disease; I13.0 Hypertensive heart and chronic kidney disease with heart failure and stage 1 through stage 4 chronic kidney disease, or unspecified chronic kidney disease; N18.9 Chronic kidney disease, unspecified; I50.9 Heart failure, unspecified; E78.00 Pure hypercholesterolemia, unspecified; M10.9 Gout, unspecified; Y84.6 Urinary catheterization as the cause of abnormal reaction of the patient, or of later complication, without mention of misadventure at the time of the procedure
CPT/HCPCS: 51702; 81001; 87086; 99285; A4314

== ENCOUNTER 2021-11-01 14:31 | Emergency (ER) | payer MEDICARE, OTHER ==
[~2021-11-01] VITALS: Ht 185.4 cm; Wt 127.3 kg
--- NOTE | 2021-11-01 14:55 | PHYS DOC ---
Past Medical History Past Medical History: CHF, Depression, Diabetes-Type II, GERD, High Salma sterol, Hypertension, Seizure, Other Additional Past Medical Histor: gout; prostate; sleep apnea, neuropathy, CKD Past Surgical History: Tonsillectomy, Other Additional Past Surgical Histo: right ankle,SKIN CA'S Smoking Status: Never Smoker Alcohol Use: None Drug Use: None General Adult EDM: Chief Complaint: URINE CATHETER PROBLEM HPI: HPI: Patient is a 81 year old male who is brought in by his for evaluation of penile pain/urethral pain. He has a chronic indwelling Pisano catheter, it has been changed several times. He has been seen here multiple times, he is also been seen at [facility]. His urologist is Dr. Marino at [facility]. He was seen here 3 days ago, and 5 days ago he was in the ER at [facility], he received a dose of IV antibiotics at that time. His Pisano catheter is draining urine. His reports that he had plenty of urine output this morning and this afternoon, then she went to the store and was gone for just a little over 40 minutes and when he returned she did not think that he had as much urine output as he should have. He has urine in his catheter bag currently. He has prescribed hydrocodone for when he has this pain, he refuses to take it. His had given him Tylenol at home, he reported no relief with this. He denies chest pain, dyspnea, abdominal pain, nausea or vomiting. He describes "spasms" in his bladder and penis area. He is scheduled for a TURP at the end of this month. He has had this indwelling Pisano catheter since April 2021. Review of Systems: Review of Systems: Constitutional: Denies fever or chills. [] HENT: Denies nasal congestion or sore throat. [] Respiratory: Denies cough or shortness of breath. [] Cardiovascular: Denies chest pain GI: Denies abdominal pain, nausea, vomiting, or diarrhea : Urethral and penis pain at Pisano catheter site Integument: Denies rash. [] Neurologic: Denies headache or dizziness. Chronic and unchanged weakness. No new focal weakness. Psychiatric: Anxiety due to pain Heart Score: C/O Chest Pain: No Risk Factors: Risk Factors: DM, Current or recent (<one month) smoker, HTN, HLP, family history of CAD, obesity. Risk Scores: Score 0 - 3: 2.5% MACE over next 6 weeks - Discharge Home Score 4 - 6: 20.3% MACE over next 6 weeks - Admit for Clinical Observation Score 7 - 10: 72.7% MACE over next 6 weeks - Early Invasive Strategies Allergies: Allergies: Allergies Coded Allergies Type Severity Reaction Last Updated Verified No Known Drug Allergies 08/08/17 No Physical Exam: PE: Constitutional: Well developed, well nourished, appears to be in pain but nontoxic, no acute distress. Chronically ill-appearing. HENT: Normocephalic, atraumatic, oropharynx patent and clear, mucous membranes are moist Neck: Normal range of motion, no tenderness, supple, no stridor. [] Cardiovascular:Heart rate regular rhythm, +2 dorsalis pedis and +2 pulses bilaterally. Lungs & Thorax: Bilateral breath sounds clear to auscultation [] Abdomen: Abdomen is obese, soft, nondistended, nontender to palpation. No palpable masses organomegaly. No palpable pulsatile mass. : No external lesions are noted. Catheter is appropriately positioned within the urethral meatus. There is no blood at the meatus. There is no evidence of edema or erythema of the glans. No drainage from the urethra. Testes are descended bilaterally, no tenderness. Skin: Warm, dry, no erythema, no rash. [] Extremities: No tenderness, no cyanosis, no clubbing, ROM intact, bilateral, symmetric 1+ lower extremity edema. No calf tenderness. Neurologic: He is awake, alert, oriented x3, no facial asymmetry, speech is susanne ar and fluent, moves all 4 extremities equally, generalized but nonfocal motor weakness. Psychologic: He is anxious but pleasant and cooperative. Current Patient Data: Vital Signs: Vital Signs Date Time Temp Pulse Resp B/P (MAP) Pulse Ox O2 Delivery O2 Flow Rate FiO2 11/01/21 14:43 98.0 125 20 147/99 (115) 93 Room Air 98.0 EKG: EKG: [] Radiology/Procedures: Radiology/Procedures: [] Course & Med Decision Making: Course & Med Decision Making Pertinent Labs and Imaging studies reviewed. (See chart for details) The patient is given IV fluids, IV morphine x2 and p.o. [place]. The patient appears to be resting more comfortably, but he is admittedly still anxious about his penile pain. His urinary catheter is draining appropriately, does not appear to need to be changed or replaced at this time. I reviewed the patient's urine culture from 3 days ago was reviewed. No growth that would indicate true urinary tract infection. The patient is already on Flomax. He is urinary catheter appears to be draining and working appropriately. I recommend that he contact his primary care physician as well as his urologist at [facility] for further evaluation and treatment. He is scheduled for a TURP in a few weeks. His reports that the hydrocodone that he has at home is reportedly over a year old and she is kept in the refrigerator. I agreed to write a new prescription for hydrocodone for discharge home. Topical lidocaine is applied to his glans. I told his that she may use [id number] Lanacane as well. I was able to speak with one of the urologist at [facility], Dr. Grijalva, and the patient had been reportedly offered oxybutynin in the office recently, but the patient and his declined to take it. He recommends giving this. The patient is given a dose of this here in the ER, as well as given a prescription for discharge home. He does appear to be retaining some urine on bladder scan on bedside ultrasound, I ordered a Pisano catheter replacement. It appears that his last Pisano catheter was a 20 [place], this was just [address] Grijalva recommends the patient call their office for any further urologic issues or problems troubleshooting the catheter. This was explained explicit to the patient and his as well. They may of course return to the emergency department for any emergency concerns or other problems. Return precautions are given. Dragon Disclaimer: Dragon Disclaimer: This electronic medical record was generated, in whole or in part, using a voice recognition dictation system. Departure Departure Impression: Primary Impression: Penile pain Additional Impressions: Indwelling Pisano catheter present Acute on chronic urinary retention Enlarged prostate Encounter for Pisano catheter replacement Disposition: HOME / SELF CARE / HOMELESS Condition: STABLE Referrals: BENJY COLORADO (PCP) Patient Instructions: Pisano Catheter Care, Adult Additional Instructions: You may use [id number] Lanacane as needed. Avoid placing it directly on the Pisano catheter tubing. Use the prescription medication as needed/as directed. Continue taking your prescription medications as directed. Your urine Culture from 3 days ago did not demonstrate any growth that would indicate infection. You did not currently need antibiotics. If your urine culture from today returns for any abnormalities demonstrating true urinary tract infection no need for antibiotics, you should be contacted within about 48 hours. I strongly recommend you contact your urologist office and primary care doctor's office for further evaluation and treatment. May return to the ER at anytime for more severe pain, temperature 100.4 or higher or higher,, for severe abdominal pain, severe back or flank pain, chest pain, shortness of breath, severe dizziness, weakness, if you are acutely injured or standing trauma, for uncontrolled vomiting, dehydration or other concerns. Scripts Oxybutynin Chloride (OXYBUTYNIN CHLORIDE) 5 Mg Tablet 1 TAB PO BID for bladder spasm, #60 TAB 0 Refills Prov: KEM DONIS DO 11/01/21 Hydrocodone Bit/Acetaminophen (HYDROCODONE-APAP 5-325 ) 1 Tab Tablet 1 TAB PO PRN Q6HRS PRN for PAIN, #20 TAB 0 Refills Prov: KEM DONIS DO 11/01/21 KEM DONIS DO Nov 01, 2021 14:55
[2021-11-01] MEDS ORDERED: MORPHINE SULFATE 4 MG/ML INJ. IVP ONE ×2 (15:15→16:00)
[2021-11-01] MEDS ORDERED: ONDANSETRON PF 4 MG/2 ML VIAL. IVP ONE (15:15)
[2021-11-01] MEDS ORDERED: IV NORMAL SALINE 1000ML BAG 1,000 ML IV ONE (15:15)
[2021-11-01 15:30] LABS: BASO # 0.1 x10^3/uL (0.0-0.2); BASO % 1 % (0-3); EOS # 0.2 x10^3/uL (0.0-0.7); EOS % 3 % (0-3); HEMATOCRIT 41.2 % (39.0-53.0); HEMOGLOBIN 13.3 g/dL (13.0-17.5); LYMPH # 1.1 x10^3/uL (1.0-4.8); LYMPH % 14 % (24-48); MEAN CORPUSCULAR HEMOGLOBIN 26 pg (25-35); MEAN CORPUSCULAR HGB CONC 32 g/dL (31-37); MEAN CORPUSCULAR VOLUME 80 fL (79-100); MONO # 0.6 x10^3/uL (0.0-1.1); MONO % 7 % (0-9); NEUT # 6.1 x10^3/uL (1.8-7.7); NEUT % 75 % (31-73); PLATELET COUNT 354 x10^3/uL (140-400); RED BLOOD COUNT 5.17 x10^6/uL (4.30-5.70); RED CELL DISTRIBUTION WIDTH 15.4 % (11.5-14.5); WHITE BLOOD COUNT 8.1 x10^3/uL (4.0-11.0)
[2021-11-01] MEDS ORDERED: PHENAZOPYRIDINE 200 MG TABLET. PO ONE (15:45)
[2021-11-01 15:46] LABS: CALCIUM 9.3 mg/dL (8.5-10.1); CREATININE 1.2 mg/dL (0.7-1.3); GFR 57.8; POTASSIUM 3.5 mmol/L (3.5-5.1)
[2021-11-01 15:51] LABS: BILIRUBIN,URINE NEGATIVE (NEG); CLARITY,URINE TURBID; COLOR,URINE STRAW; NITRITE,URINE NEGATIVE (NEG); PH,URINE 6.5 (<5.0-8.0); PROTEIN,URINE 100 mg/dL (NEG-TRACE); UROBILINOGEN,URINE 0.2 mg/dL (0.2 mg/dL)
[2021-11-01 15:53] LABS: BACTERIA,URINE FEW /HPF (0-FEW); WBC,URINE TNTC /HPF (0-4)
[2021-11-01] MEDS ORDERED: HYDR-2761 PO (17:37)
[2021-11-01] MEDS ORDERED: LIDOCAINE 2% JELLY 6ML IN APPLICATOR. MM ONE (17:45)
[2021-11-01] MEDS ORDERED: OXYB5TAB10 PO (17:45)
[2021-11-01] MEDS ORDERED: HYDROcodone/APAP 5/325MG 1 TAB TABLET PO ONE (17:45)
[2021-11-01] MEDS ORDERED: OXYBUTYNIN CHLORIDE 5 MG TABLET PO ONE (17:45)
[2021-11-01 19:15] VITALS: BP 187/96
== END 2021-11-01 20:07 | disposition home or self-care (01) ==
LOC: ER 14:31
DX: N40.1 Benign prostatic hyperplasia with lower urinary tract symptoms (principal); R33.8 Other retention of urine; N48.89 Other specified disorders of penis; K21.9 Gastro-esophageal reflux disease without esophagitis; I13.0 Hypertensive heart and chronic kidney disease with heart failure and stage 1 through stage 4 chronic kidney disease, or unspecified chronic kidney disease; E11.22 Type 2 diabetes mellitus with diabetic chronic kidney disease; N18.9 Chronic kidney disease, unspecified; I50.9 Heart failure, unspecified; E78.00 Pure hypercholesterolemia, unspecified; E11.40 Type 2 diabetes mellitus with diabetic neuropathy, unspecified
CPT/HCPCS: 36415; 51702; 80048; 81001; 85025; 87086; 96361; 96374; 96375; 96376; 99285; J2270; J2405; J7030

== ENCOUNTER → 2022-01-08 | Outpatient (CLI) | payer MEDICARE, OTHER ==
[~2022-01-08] MED LIST changes: +HYDR-2761 PO; -OMEP20TA8 PO; +OMEP20TA91 PO; +OXYB5TAB10 PO
--- NOTE | 2022-01-09 07:45 | CARD ---
MR#: [id number] Date of Study: 01/08/2022 Ordering Physician: DELL WEST, Referring Physician: Erick TREVIZO: ZAINA PEREZ [facility] APPROVED REPORT EXAM: Two-dimensional and M-mode echocardiogram with Doppler and color Doppler. Other Information Quality : FairHR: 72bpm Rhythm : NSRTechnically limited study due to body habitus and unable to roll to side. INDICATION CHRONIC DIASTOLIC HEART FAILURE 2D DIMENSIONS Left Atrium(2D)3.4 (1.6-4.0cm)IVSd1.2 (0.7-1.1cm) Aortic Root(2D)4.4 (2.0-3.7cm)LVDd4.2 (3.9-5.9cm) LVOT Diameter2.3 (1.8-2.4cm)PWd0.7 (0.7-1.1cm) LVDs2.6 (2.5-4.0cm)FS (%) 39.5 % SV56.0 mlLVEF(%)70.4 (>50%) Aortic Valve AoV Peak Alonso.164.2cm/sAoV VTI38.5cm AO Peak GR.10.8mmHgLVOT Peak Alonso.88.4cm/s AO Mean GR.7mmHgAVA (VMAX)2.31cm2 Mitral Valve MV E Umkkmduc48.7cm/sMV DECEL [id number] MV A Jddzcged64.4cm/sE/A Ratio0.7 Pulmonary Valve PV Peak Evwezbjz93.9cm/s Pulmonary Vein S1 Akbfwlip37.6cm/sD2 Wavjvvdm26.3cm/s PVa [id number] LEFT VENTRICLE The left ventricle is normal size. There is borderline to mild concentric left ventricular hypertroph y. The left ventricle systolic function normal. The Ejection Fraction is 55-60%. No regional wall mot ion abnormalities noted. Transmitral Doppler flow pattern is Grade I-abnormal relaxation pattern. No left ventricle thrombus noted on this study. There is no ventricular septal defect visualized. There is no left ventricular aneurysm. There is no mass noted in the left ventricle. RIGHT VENTRICLE The right ventricle is normal size. There is normal right ventricular wall thickness. The right ventr icular systolic function is normal. ATRIA The left atrium size is normal. The right atrium size is normal. The interatrial septum is intact wit h no evidence for an atrial septal defect or patent foramen ovale as noted on 2-D or Doppler imaging. AORTIC VALVE The aortic valve is normal in structure and function. No aortic regurgitation is present. There is no aortic valvular stenosis. There is no aortic valvular vegetation. MITRAL VALVE The mitral valve is normal in structure and function. There is no evidence of mitral valve prolapse. There is no mitral valve stenosis. There is no mitral valve regurgitation noted. TRICUSPID VALVE The tricuspid valve is normal in structure and function. There is no tricuspid valve regurgitation no jeramy. There is no tricuspid valve prolapse or vegetation. There is no tricuspid valve stenosis. PULMONIC VALVE The pulmonic valve is not well visualized. There is no pulmonic valvular regurgitation. There is no p ulmonic valvular stenosis. GREAT VESSELS The aortic root is normal in size. The ascending aorta is normal in size. The pulmonary artery is nor mal. The IVC is normal in size and collapses >50% with inspiration. PERICARDIAL EFFUSION There is no pleural effusion. There is no evidence of significant pericardial effusion. Critical Notification Critical Value: No <Conclusion> The left ventricle systolic function normal. The Ejection Fraction is 55-60%. No regional wall motion abnormalities noted. Transmitral Doppler flow pattern is Grade I-abnormal relaxation pattern. There is no evidence of significant pericardial effusion. Signed by : Dell West, Electronically Approved : 01/08/2022 14:00:34
== END ==
LOC: ECHO 09:35
PROVIDERS: ATTEND Internal Medicine Cardiovascular Disease
DX: I51.7 Cardiomegaly (principal); I50.32 Chronic diastolic (congestive) heart failure
CPT/HCPCS: 93306; C8929